=== PATIENT | male | born 1965 | race Caucasian/White ===

== ENCOUNTER 2021-10-22 10:15 | Inpatient (IN) ==
--- NOTE | 2021-10-22 11:24 | Emergency Department Note ---
History of Present Illness General Chief complaint: Leg Weakness, Bilateral Stated complaint: CANNOT WALK OR STAND, WONT EAT Time Seen by Provider: 10/22/21 11:08 Source: patient and other (Records from [facility]) Mode of arrival: ambulatory Limitations: physical limitation History of Present Illness This patient is a 56-year-old male who is a patient at [facility], comes in after being weak for the last week or so he is not walking which is atypical for him he does tend to fall and may have fallen few times recently but no definite injuries. No seizures. No fever chills he has chronic cough that is unchanged. His appetites been off and on but no vomiting. 3 weeks ago they changed a couple of his psych meds, they increased his Klonopin to regular from as needed. They also added a medication for sleep. He does take a pured diet at baseline. They state he has been losing weight but has not voiced any complaints that they can tell. Home Medications Medication Instructions Recorded Confirmed Type apixaban 5 mg tablet (Eliquis) 5 mg PO BID@,12/26/18 12/26/18 History ascorbic acid (vitamin C) 500 mg 500 mg PO BID@,12/26/18 12/26/18 History tablet (Vitamin C) benztropine 0.5 mg tablet 0.5 mg PO BID@12/26/18 12/26/18 History bromocriptine 2.5 mg tablet 2.5 mg PO DAILY@,12/26/18 12/26/18 History (Parlodel) cholecalciferol (vitamin D3) 25 1,000 unit PO BID@12/26/18 12/26/18 History mcg (1,000 unit) chewable tablet (Vitamin D3) dantrolene 25 mg capsule (Dantrium) 25 mg PO DAILY@12/26/18 12/26/18 History divalproex 250 mg tablet,delayed 250 mg PO DAILY@1600 12/26/18 12/26/18 History release divalproex 500 mg tablet,extended 1,000 mg PO BID@,12/26/18 12/26/18 History release 24 hr (Depakote ER) famotidine 20 mg tablet 20 mg PO DAILY@12/26/18 12/26/18 History folic acid 1 mg tablet 1 mg PO DAILY@08 12/26/18 12/26/18 History lactulose 10 gram/15 mL oral 45 ml PO DAILY@12/26/18 12/26/18 History solution levocarnitine 330 mg tablet 330 mg PO TID@08,,12/26/18 12/26/18 History (Carnitor) multivitamin 1 tab PO DAILY@12/26/18 12/26/18 History olanzapine 10 mg disintegrating 10 mg PO BID@,12/26/18 12/26/18 History tablet omega 0-ihp-jft-fish oil 1,000 mg 1 cap PO DAILY@12/26/18 12/26/18 History (120 mg-180 mg) capsule (Fish Oil) sennosides 8.8 mg/5 mL oral syrup 5 ml PO BID@,12/26/18 12/26/18 History (senna) topiramate 25 mg tablet (Topamax) 25 mg PO BID@,12/26/18 12/26/18 History zonisamide 100 mg capsule 200 mg PO DAILY@08 12/26/18 12/26/18 History zonisamide 100 mg capsule 300 mg PO DAILY@1600 12/26/18 12/26/18 History zonisamide 50 mg capsule 50 mg PO DAILY@12/26/18 12/26/18 History Allergies Allergy/AdvReac Type Severity Reaction Status Date / Time amoxicillin Allergy Mild unknown Verified 12/26/18 10:05 haloperidol Allergy Mild unknown Verified 12/26/18 10:05 lithium Allergy Unknown Unverified 12/26/18 10:05 PENICILLIN Allergy Mild unknown Uncoded 12/26/18 10:05 VALPORIC ACID Allergy Mild unknown Uncoded 12/26/18 10:05 Past Med/Surg History Medical History (Updated 10/22/21 @ 14:02 by Anny Gusman PA-C) Bipolar disease, chronic Intellectual disability Intermittent explosive Surgical History (Updated 10/22/21 @ 14:03 by Anny Gusman PA-C) Hx of colonoscopy Family History (Updated 10/22/21 @ 13:57 by Anny Gusman PA-C) Father Cancer Heart disease Mother Cancer Hypertension Other Family history non-contributory Social History Smoking Status: Never smoker Preferred Language: Taj[place] Feels Safe at Home: Yes Review of Systems Unobtainable due to mental health condition Physical Exam Vital Signs Vital Signs - 24 hr 10/22/21 10:17 10/22/21 11:18 10/22/21 12:05 Temperature 36.1 C L Temperature Source Temporal Artery Scan Pulse Rate 113 H 82 Pulse Rate [Finger] 77 Pulse Rate from SpO2 Sensor Pulse Rhythm Regular Pulse Strength Normal Respiratory Rate 18 18 18 Respiratory Effort / Characteristics Non-Labored Spontaneous Respiratory Depth Normal Respiratory Pattern Regular Blood Pressure 147/86 H Blood Pressure [Right Arm] 123/73 Blood Pressure Mean 106 Blood Pressure Mean [Right Arm] 89 Blood Pressure Position Sitting Blood Pressure Position [Right Arm] Lying Pulse Oximetry 98 94 96 Oxygen Delivery Method Room Air Room Air Sepsis Recent Fever Within 48 Hours No Sepsis New/Unexplained Change in Mental Status No Sepsis Action Taken by Nursing No Action Required 10/22/21 12:21 10/22/21 12:30 Temperature Temperature Source Pulse Rate 76 77 Pulse Rate [Finger] Pulse Rate from SpO2 Sensor 75 Pulse Rhythm Pulse Strength Respiratory Rate 14 18 Respiratory Effort / Characteristics Respiratory Depth Respiratory Pattern Blood Pressure Blood Pressure [Right Arm] Blood Pressure Mean Blood Pressure Mean [Right Arm] Blood Pressure Position Blood Pressure Position [Right Arm] Pulse Oximetry 96 Oxygen Delivery Method Sepsis Recent Fever Within 48 Hours Sepsis New/Unexplained Change in Mental Status Sepsis Action Taken by Nursing General: Well developed well nourished somewhat cachectic middle-age male who appears in no acute distress, breathing comfortably on room air. HEENT: Normal cephalic atraumatic. Pupils are equal round and reactive to light. Extraocular movements are intact. Oropharynx is pink with moist mucous membranes. No swelling of the mouth lips or tongue. Neck: Supple with a midline trachea. No meningeal signs or stiffness, no JVD or bruits. No Stridor. Chest: Clear to auscultation bilaterally. No wheezes or rhonchi. No increased work of breathing. Heart: Regular rate and rhythm without murmurs or gallops. Abdomen: Soft nontender, nondistended without rebound guarding or rigidity. Extremities: No cyanosis clubbing or edema. No calf tenderness or assymetry Spine/Back. Non tender to palpation. No CVA tenderness. There is some mild fullness along the sacral prominence which I believe is just the bones secondary to wasting that can be felt. There is no redness or warmth or fluctuance Skin: Good turgor without rashes. Neurologic exam: Cranial nerves two through 12 are intact. Motor and sensation are intact and symmetrical throughout. Course Administered Medications Discontinued Medications Sodium Chloride (Nss 1000ml) 1,000 mls @ 999 mls/hr IV .Q1H1M ROCIO Stop: 10/22/21 12:30 Last Infusion: 10/22/21 13:58 Dose: 0 mls/hr Documented By: Admin: 10/22/21 12:08 Dose: 999 mls/hr Documented By: QGV Medical Decision Making Differential Diagnosis Electrolyte or metabolic abnormality, toxicologic/medication side effects, trauma, intracranial hemorrhage, arrhythmia, anemia, electrolyte or metabolic abnormality, infection Medical Records Attestation: I reviewed the patient's medical records. Home Medications Current Medication List: was personally reviewed by me Laboratory Data Attestation: I reviewed the patient's lab results. Result diagrams: 10/22/21 11:49 10/22/21 11:49 Lab Results 10/22/21 10/22/21 10/22/21 Range/Units 11:49 11:49 11:49 WBC 4.66 L (4.8-10.8) K/ul RBC 4.30 L (4.63-6.08) M/uL Hgb 13.4 L (14.0-18.0) g/dl Hct 42.5 (40.1-51.0) % MCV 98.8 (80.0-100.0) fL MCH 31.2 (25.0-34.0) pg MCHC 31.5 L (32.0-36.0) g/dL RDW Std Deviation 57.4 H (36.4-46.3) fL RDW Coeff of [place]andon 15.7 H (11.5-14.5) % Plt Count 127 L (130-400) K/uL MPV 12.4 (9.4-12.4) fL Immature Gran % (Auto) 0.2 % Neut % (Auto) 64.0 % Lymph % (Auto) 26.4 % [place] % (Auto) 7.1 % Eos % (Auto) 1.9 % Baso % (Auto) 0.4 % Neut # (Auto) 2.98 (1.4-6.5) K/uL Lymph # (Auto) 1.23 (1.2-3.4) K/uL [place] # (Auto) 0.33 (0.24-0.82) K/uL Eos # (Auto) 0.09 (0-0.50) K/uL Baso # (Auto) 0.02 (0-0.2) K/uL Immature Gran # (Auto) 0.01 (0.00-0.02) K/uL PT 11.7 (9.0-12.0) Seconds INR 1.1 (0.9-1.1) Sodium 140 (136-145) mmol/L Potassium 4.4 (3.5-5.1) mmol/L Chloride 102 (98-107) mmol/L Carbon Dioxide 34 H (21-32) mmol/L Anion Gap 4 (3-11) BUN 21 (6-23) mg/dl Creatinine 0.64 (0.6-1.4) mg/dl Est Cr Clr Drug Dosing Not Reportable Est GFR ( Amer) 126.0 ml/min Est GFR (Non-Af Amer) 108.7 ml/min BUN/Creatinine Ratio 32.8 H (10-20) Glucose 73 (70-99(Fasting)) mg/dl Lactate (0.4-2.0) mmol/L Calcium 10.3 H (8.5-10.1) mg/dl Magnesium 2.0 (1.7-2.4) mg/dl Total Bilirubin 0.3 (0.2-1.0) mg/dl AST 23 (13-39) U/L ALT 14 (7-52) U/L Alkaline Phosphatase 64 (34-104) U/L Total Creatine Kinase 162 (30-223) U/L Troponin I High Sens 4.0 (0-20) pg/ml Total Protein 8.3 (6.0-8.3) gm/dl Albumin 4.0 (3.4-5.0) gm/dl Globulin 4.3 H (2.5-4.0) gm/dl Albumin/Globulin Ratio 0.9 (0.9-2) TSH (0.300-4.500) uIu/ml Valproic Acid (50-100) mcg/ml SARS-CoV-2, RNA, NAAT (NEGATIVE) 10/22/21 10/22/21 10/22/21 Range/Units 11:49 11:49 11:49 WBC (4.8-10.8) K/ul RBC (4.63-6.08) M/uL Hgb (14.0-18.0) g/dl Hct (40.1-51.0) % MCV (80.0-100.0) fL MCH (25.0-34.0) pg MCHC (32.0-36.0) g/dL RDW Std Deviation (36.4-46.3) fL RDW Coeff of Landon (11.5-14.5) % Plt Count (130-400) K/uL MPV (9.4-12.4) fL Immature Gran % (Auto) % Neut % (Auto) % Lymph % (Auto) % [place] % (Auto) % Eos % (Auto) % Baso % (Auto) % Neut # (Auto) (1.4-6.5) K/uL Lymph # (Auto) (1.2-3.4) K/uL [place] # (Auto) (0.24-0.82) K/uL Eos # (Auto) (0-0.50) K/uL Baso # (Auto) (0-0.2) K/uL Immature Gran # (Auto) (0.00-0.02) K/uL PT (9.0-12.0) Seconds INR (0.9-1.1) Sodium (136-145) mmol/L Potassium (3.5-5.1) mmol/L Chloride (98-107) mmol/L Carbon Dioxide (21-32) mmol/L Anion Gap (3-11) BUN (6-23) mg/dl Creatinine (0.6-1.4) mg/dl Est Cr Clr Drug Dosing Est GFR ( Amer) ml/min Est GFR (Non-Af Amer) ml/min BUN/Creatinine Ratio (10-20) Glucose (70-99(Fasting)) mg/dl Lactate 1.2 (0.4-2.0) mmol/L Calcium (8.5-10.1) mg/dl Magnesium (1.7-2.4) mg/dl Total Bilirubin (0.2-1.0) mg/dl AST (13-39) U/L ALT (7-52) U/L Alkaline Phosphatase (34-104) U/L Total Creatine Kinase (30-223) U/L Troponin I High Sens (0-20) pg/ml Total Protein (6.0-8.3) gm/dl Albumin (3.4-5.0) gm/dl Globulin (2.5-4.0) gm/dl Albumin/Globulin Ratio (0.9-2) TSH 1.315 (0.300-4.500) uIu/ml Valproic Acid 121 H (50-100) mcg/ml SARS-CoV-2, RNA, NAAT (NEGATIVE) 10/22/21 Range/Units 12:28 WBC (4.8-10.8) K/ul RBC (4.63-6.08) M/uL Hgb (14.0-18.0) g/dl Hct (40.1-51.0) % MCV (80.0-100.0) fL MCH (25.0-34.0) pg MCHC (32.0-36.0) g/dL RDW Std Deviation (36.4-46.3) fL RDW Coeff of Landon (11.5-14.5) % Plt Count (130-400) K/uL MPV (9.4-12.4) fL Immature Gran % (Auto) % Neut % (Auto) % Lymph % (Auto) % [place] % (Auto) % Eos % (Auto) % Baso % (Auto) % Neut # (Auto) (1.4-6.5) K/uL Lymph # (Auto) (1.2-3.4) K/uL [place] # (Auto) (0.24-0.82) K/uL Eos # (Auto) (0-0.50) K/uL Baso # (Auto) (0-0.2) K/uL Immature Gran # (Auto) (0.00-0.02) K/uL PT (9.0-12.0) Seconds INR (0.9-1.1) Sodium (136-145) mmol/L Potassium (3.5-5.1) mmol/L Chloride (98-107) mmol/L Carbon Dioxide (21-32) mmol/L Anion Gap (3-11) BUN (6-23) mg/dl Creatinine (0.6-1.4) mg/dl Est Cr Clr Drug Dosing Est GFR ( Amer) ml/min Est GFR (Non-Af Amer) ml/min BUN/Creatinine Ratio (10-20) Glucose (70-99(Fasting)) mg/dl Lactate (0.4-2.0) mmol/L Calcium (8.5-10.1) mg/dl Magnesium (1.7-2.4) mg/dl Total Bilirubin (0.2-1.0) mg/dl AST (13-39) U/L ALT (7-52) U/L Alkaline Phosphatase (34-104) U/L Total Creatine Kinase (30-223) U/L Troponin I High Sens (0-20) pg/ml Total Protein (6.0-8.3) gm/dl Albumin (3.4-5.0) gm/dl Globulin (2.5-4.0) gm/dl Albumin/Globulin Ratio (0.9-2) TSH (0.300-4.500) uIu/ml Valproic Acid (50-100) mcg/ml SARS-CoV-2, RNA, NAAT NEGATIVE (NEGATIVE) Imaging Data Attestation: I personally reviewed and interpreted this imaging study as follows: My Impression: Chest x-raynonspecific haziness in the bases CT head-no acute hemorrhage or mass-effect Radiologist's Impression: Chest X-Ray 10/22/21 11:18 XR chest 1V portable HISTORY: 56 years-old Male weakness acute weakness COMPARISON: None TECHNIQUE: Portable AP view of the chest FINDINGS: Cardiac silhouette is normal in size. Mild nonspecific interstitial coarsening of the left greater than right lung bases. Mild left hemidiaphragmatic elevation. No pneumothorax, large pleural effusion or lobar airspace cons olidation. Moderate fecal retention of the splenic flexure. Chronic appearing fracture deformities of the right proximal humerus and distal right clavicle. IMPRESSION: Mild left hemidiaphragmatic elevation with mild nonspecific interstitial coarsening of the lung bases. Findings may represent atelectasis versus a nonspecific pneumonitis. ACT 112: Negative or not required by law. The above report was generated using voice recognition software. It may contain grammatical, syntax or spelling errors. Electronically signed by: Ezekiel Ramirez M.D. 10/22/2021 11:[address] 10/22/21 11:18 CT head/brain wo con CLINICAL HISTORY: 56 years-old Male with weakness. Acute weakness TECHNIQUE: Multiple axial CT images of the head were obtained without contrast. A dose lowering technique was utilized adhering to the principles of ALARA. COMPARISON: None. FINDINGS: No acute intracranial hemorrhage, midline shift, intracranial mass, hydrocephalus, territorial ischemia or abnormal extra-axial collection.5 study is mildly motion degraded. Mild involutional changes. The calvarium is intact. Trace mastoid effusions. Paranasal sinuses are clear. Unremarkable soft tissues and orbits. IMPRESSION: No acute intracranial abnormality. ACT 112: Negative or not required by law. The above report was generated using voice recognition software. It may contain grammatical, syntax or spelling errors. Electronically signed by: Ezekiel Ramirez M.D. 10/22/2021 1:45 PM ECG Data Attestation: I personally reviewed and interpreted this ECG as follows: Indication: + weakness Rate (beats per minute): 79 Rhythm: + normal sinus ECG Intervals/blocks: + Normal QRS, + Normal QT and + Normal [place] ECG Athena: + Normal ECG ST segments: + Normal ST segments ECG Findings: no PACs or no PVCs Comparison ECG Date: no prior available MDM Narrative This patient comes in with increasing weakness and difficulty walking over the last week or so is difficult to evaluate due to his underlying intellectual deficit and mental health diagnoses. IV access was established and he was hydrated with an IV normal saline bolus. Multiple blood testing was obtained an d he was reassessed frequently. He has no fever or white count to suggest infection. He has no significant electrolyte or metabolic abnormalities. His Depakote level was significantly elevated at 121 I think this is likely causing his symptoms it seems like he is ataxic. He was hydrated with normal saline. He is on a blood thinner. CAT scan of his head was unremarkable. I do think he needs to be admitted as he is a fall risk and they can hold his Depakote and hydrate him. I have consulted the [facility] hospitalist to see him. Continuous cardiac monitoring: Versus placed in EMR for continuous cardiac monitoring. Soto interpretation the patient noted to be in normal sinus rhythm rate of 70 Impression & Plan Valproic acid toxicity, Weakness, Ataxia, Lab test negative for COVID-19 virus Discharge Plan Visit Data Chief Complaint: Leg Weakness, Bilateral Stated Complaint: CANNOT WALK OR STAND, WONT EAT ED Provider: Pritesh Iraheta Discharge Problem: Valproic acid toxicity, Weakness, Ataxia, Lab test negative for COVID-19 virus Forms Stand Alone Forms: My [facility] Prescriptions Prescriptions: No Action multivitamin Tablet 1 tab PO DAILY@08 benztropine 0.5 mg Tablet 0.5 mg PO BID@08,20 dantrolene [Dantrium] 25 mg Capsule 25 mg PO DAILY@20 divalproex 250 mg Tablet,Delayed Release (Dr/Ec) 250 mg PO DAILY@1600 topiramate [Topamax] 25 mg Tablet 25 mg PO BID@08,16 sennosides [senna] 8.8 mg/5 mL Syrup 5 ml PO BID@08,20 levocarnitine [Carnitor] 330 mg Tablet 330 mg PO TID@08,,20 zonisamide 100 mg Capsule 200 mg PO DAILY@08 zonisamide 100 mg Capsule 300 mg PO DAILY@1600 famotidine 20 mg Tablet 20 mg PO DAILY@08 ascorbic acid (vitamin C) [Vitamin C] 500 mg Tablet 500 mg PO BID@08,20 divalproex [Depakote ER] 500 mg Tablet Extended Release 24 Hr 1,000 mg PO BID@08,20 olanzapine 10 mg Tablet,Disintegrating 10 mg PO BID@08,20 folic acid 1 mg Tablet 1 mg PO DAILY@08 bromocriptine [Parlodel] 2.5 mg Tablet 2.5 mg PO DAILY@, zonisamide 50 mg Capsule 50 mg PO DAILY@08 lactulose 10 gram/15 mL Solution 45 ml PO DAILY@08 cholecalciferol (vitamin D3) [Vitamin D3] 1,000 unit Tablet,Chewable 1,000 unit PO BID@08,20 omega 8-prb-iga-fish oil [Fish Oil] 1,000 mg (120 mg-180 mg) Capsule 1 cap PO DAILY@17 Eliquis 5 mg Tablet 5 mg PO BID@08,20 Referrals Referrals: Barbara Fuentes PA-C [Primary Care Provider] - : Valproic acid toxicity Qualifiers: Encounter type: initial encounter Injury intent: accidental or unintentional Qualified Code(s): T42.6X1A - Poisoning by other antiepileptic and sedative- hypnotic drugs, accidental (unintentional), initial encounter
[2021-10-22] MEDS ORDERED: SODIUM CHLORIDE 0.9% 1000ML 1,000 ML IV SCH ×2 (11:30→14:45)
--- NOTE | 2021-10-22 11:36 | XRay Report ---
XR chest 1V portable HISTORY: 56 years-old Male weakness acute weakness COMPARISON: None TECHNIQUE: Portable AP view of the chest FINDINGS: Cardiac silhouette is normal in size. Mild nonspecific interstitial coarsening of the left greater th an right lung bases. Mild left hemidiaphragmatic elevation. No pneumothorax, large pleural effusion o r lobar airspace consolidation. Moderate fecal retention of the splenic flexure. Chronic appearing fr acture deformities of the right proximal humerus and distal right clavicle. IMPRESSION: Mild left hemidiaphragmatic elevation with mild nonspecific interstitial coarsening of th e lung bases. Findings may represent atelectasis versus a nonspecific pneumonitis. ACT 112: Negative or not required by law. The above report was generated using voice recognition software. It may contain grammatical, syntax o r spelling errors. Electronically signed by: Ezekiel Ramirez M.D. 10/22/2021 11:34 AM
[2021-10-22 12:24] LABS: Basophils # (auto) 0.02 K/uL (0-0.2); Basophils % (auto) 0.4 %; Eosinophils # (auto) 0.09 K/uL (0-0.50); Eosinophils % (auto) 1.9 %; Hematocrit (blood only) 42.5 % (40.1-51.0); Hemoglobin 13.4 g/dl (14.0-18.0); INR 1.1 (0.9-1.1); Immature Granulocytes # (auto) 0.01 K/uL (0.00-0.02); Immature Granulocytes % (auto) 0.2 %; Lymphocytes # (auto) 1.23 K/uL (1.2-3.4); Lymphocytes % (auto) 26.4 %; Mean Platelet Volume 12.4 fL (9.4-12.4); Monocytes # (auto) 0.33 K/uL (0.24-0.82); Monocytes % (auto) 7.1 %; Neutrophils # (auto) 2.98 K/uL (1.4-6.5); Platelet Count 127 K/uL (130-400); Prothrombin Time 11.7 Seconds (9.0-12.0); White Blood Count 4.66 K/ul (4.8-10.8)
[2021-10-22 12:40] LABS: Alanine Aminotransferase 14 U/L (7-52); Albumin Globulin Ratio 0.9 (0.9-2); Alkaline Phosphatase 64 U/L (34-104); Anion Gap 4 (3-11); Aspartate Aminotransferase 23 U/L (13-39); BUN Creatinine Ratio 32.8 (10-20); Bilirubin,Total 0.3 mg/dl (0.2-1.0); Blood Urea Nitrogen 21 mg/dl (6-23); Calcium 10.3 mg/dl (8.5-10.1); Carbon Dioxide 34 mmol/L (21-32); Chloride 102 mmol/L (98-107); Creatine Kinase 162 U/L (30-223); Est GFR (Non-African American) 108.7 ml/min; Globulin 4.3 gm/dl (2.5-4.0); Glucose 73 mg/dl (70-99(Fasting)); Potassium 4.4 mmol/L (3.5-5.1); Sodium 140 mmol/L (136-145); Total Protein 8.3 gm/dl (6.0-8.3)
[2021-10-22 12:50] LABS: Mean Corpuscular Hemoglobin 31.2 pg (25.0-34.0); Mean Corpuscular Hgb Conc 31.5 g/dL (32.0-36.0); Mean Corpuscular Volume 98.8 fL (80.0-100.0); RDW Coefficient of Variation 15.7 % (11.5-14.5); RDW Standard Deviation 57.4 fL (36.4-46.3)
--- NOTE | 2021-10-22 13:46 | CT Scan Report ---
CT head/brain wo con CLINICAL HISTORY: 56 years-old Male with weakness. Acute weakness TECHNIQUE: Multiple axial CT images of the head were obtained without contrast. A dose lowering tech nique was utilized adhering to the principles of ALARA. COMPARISON: None. FINDINGS: No acute intracranial hemorrhage, midline shift, intracranial mass, hydrocephalus, territorial ischem ia or abnormal extra-axial collection.5 study is mildly motion degraded. Mild involutional changes. The calvarium is intact. Trace mastoid effusions. Paranasal sinuses are clear. Unremarkable soft tis sues and orbits. IMPRESSION: No acute intracranial abnormality. ACT 112: Negative or not required by law. The above report was generated using voice recognition software. It may contain grammatical, syntax o r spelling errors. Electronically signed by: Ezekiel Ramirez M.D. 10/22/2021 1:45 PM
--- NOTE | 2021-10-22 14:04 | History & Physical Report ---
Date of Service October 22, 2021 Assessment & Plan (1) Weakness: (2) Valproic acid toxicity: (3) Seizure disorder: (4) Bipolar disease, chronic: Plan: -Admit to med surg with tele -Will hold valproic acid for now as appears that some of his symptoms may be related to toxicity with level going from the mid 90s to 121. Possible due to malabsorption with recent weight loss and medication dosing needing to be reduced, no recent medication dosing changes. -Medication changes include clonazepam 0.5 mg every morning to scheduled and temazepam increased to 15 to 30 mg at bedtime. -Neuro consulted for hx of weakness with elevated depakote level, and seizure disorder hx, per HPI, no witnessed seizure in the past 13 years -PT/OT -Behavioral disturbances noted in HPI, he currently has not been walking, calm, lethargic, monitor for need for 1:1 at bedside -Epic reviewed and last tox screen was positive for benzodiazepines appropriately, PDMP reviewed as well. Order urine drug screen for completeness. -TSH 1.315 - Check B12 and folic acid -Noted that during his last visit to PCP in mid September his Seroquel and Remeron were increased (5) Weight loss: Plan: -Concern for weight loss of greater than 20 pounds unintentionally in the past few months - on outpt review mother was concerned about 17 lbs down since July despite 2 boost and 1 benecalorie daily, on average is consuming 2500 to 3000 kenny daily. Allow pureed and pudding thick liquids. Aspiration precautions. -Check CT the chest, abdomen pelvis to eval for underlying malignancy, consider a Ca1 29 level -NSS x 1 bag s/p contrast with CTs - Recent colonoscopy in August 2021 but had poor prep and has been rescheduled, it was done due to high risk colon cancer surveillance, and personal hx of tubular adenoma found on colonoscopy in May 2015 -PSA was 0.44 on 09/24/21 -Dietitian consulted for nutritional status, continue boost supplementation 3 times daily as he uses protein supplements 3 times daily as outpatient -PT/OT consults -Albumin level is adequate at 4.0, consider sarcopenia if albumin level drops does not currently meet those qualifications DVT PPx: - teds, scds, Eliquis twice daily CODE: Full code Dispo: From [facility], likely to remain in the hospital x 2 days for further workup History of Present Illness Chief Complaint: Weakness Primary Care Provider: Barbara Fuentes This is a 56-year-old male with PMHx of seizure disorder on Depakote, intermitt ent explosive disorder, severe bipolar 1, intellectual disability and developmental disorder, history of DVT on Eliquis, problems with swallowing/mastication, presents to the ER from [facility] after worsening weakness in the past week. Reportedly the patient had COVID on September 11 without symptoms, but was tested in the [place] [facility] for another visit purpose, and found incidentally. History is obtained by nursing caregiver who are present at bedside as the patient is essentially nonverbal, repeating the same word "no" throughout the exam. He does not follow commands at baseline. In the past week he not been quite himself. He has not been wanting to walk within the pas 4 days. He also has been eating less and is not allowing the aids to help feed him, and is puckering his lips when food is presented. He tolerates oral intake with pureed foods and pudding thick liquids, but he does not feed himself, instead an aid at the [facility] helps him with all meals. The report the patient normally eats well, and on a daily basis consumes carnation instant breakfast at least twice per day. They report significant weight loss, over 20 lbs within the past few months despite 3 protein supplements daily and eating things such as a pureed Big Mac where he will consume all of it at one meal without hesitancy. Pt was agreeable to taking all his medications this morning. There have been minimal changes to his outpatient medications including scheduling clonazepam 0.5 mg in the morning from a PRN med, and increased temazepam dose from 15 to 30 mg at bedtime. He has been on valproic acid 1000 mg twice daily and an additional 250 mg at 1600 for a long time. Patient has lived at fpc with [place] for 13 years and the caregivers have never witnessed seizure-like activity. They do report significant behavioral disturbances including aggressiveness, pacing and walking, extreme irritability however he has not exhibited any of these behaviors in the past week and has been significantly more lethargic. His mother has expressed concerns to the staff about him progressively becoming worse and therefore they brought him to the ER today. Valproic acid level is elevated today at 121, compared to [facility] results, his other levels have been in the mid 90s. With the most recent being on 09/11/2021 = 96. Platelet count is decreased at 127, but this has improved from outpatient labs where plt = 87 on 09/11/21. In regards to family history, caregiver nor aid are able to tell me what kind of cancer the patient's parents had. Allergies Allergy/AdvReac Type Severity Reaction Status Date / Time amoxicillin Allergy Mild unknown Verified 12/26/18 10:05 haloperidol Allergy Mild unknown Verified 12/26/18 10:05 lithium Allergy Unknown Unverified 12/26/18 10:05 PENICILLIN Allergy Mild unknown Uncoded 12/26/18 10:05 VALPORIC ACID Allergy Mild unknown Uncoded 12/26/18 10:05 Home Medications Medication Instructions Recorded Confirmed Type ascorbic acid (vitamin C) 500 mg 500 mg PO BID@,12/26/18 10/22/21 History tablet (Vitamin C) bromocriptine 2.5 mg tablet 2.5 mg PO DAILY@08,12/26/18 10/22/21 History (Parlodel) cholecalciferol (vitamin D3) 25 1,000 unit PO BID@,12/26/18 10/22/21 History mcg (1,000 unit) chewable tablet (Vitamin D3) divalproex 250 mg tablet,delayed 250 mg PO DAILY@1600 12/26/18 10/22/21 History release divalproex 500 mg tablet,extended 1,000 mg PO BID@08,12/26/18 10/22/21 History release 24 hr (Depakote ER) folic acid 1 mg tablet 1 mg PO DAILY@08 12/26/18 10/22/21 History multivitamin 1 tab PO DAILY@08 12/26/18 10/22/21 History apixaban 2.5 mg tablet (Eliquis) 2.5 mg PO BID 10/22/21 10/22/21 History clonazepam 0.5 mg tablet 0.5 mg PO QAM 10/22/21 10/22/21 History omeprazole 10 mg capsule,delayed 10 mg PO DAILY 10/22/21 10/22/21 History release quetiapine 300 mg tablet (Seroquel) 150 mg PO HS 10/22/21 10/22/21 History temazepam 30 mg capsule (Restoril) 30 mg PO HS 10/22/21 10/22/21 History Past Med/Surg History Medical History (Updated 10/22/21 @ 15:14 by Anny Gusman PA-C) Bipolar disease, chronic Intellectual disability Intermittent explosive Surgical History (Updated 10/22/21 @ 14:03 by Anny Gusman PA-C) Hx of colonoscopy Family History (Updated 10/22/21 @ 13:57 by Anny Gusman PA-C) Father Cancer Heart disease Mother Cancer Hypertension Other Family history non-contributory Social History Smoking Status: Never smoker Preferred Language: Luxembourgish Feels Safe at Home: Yes Review of Systems Review of Systems: Unobtainable due to mental health condition and Unobtainable due to cognitive status Physical Exam Physical Exam: General: awake, alert, no apparent distress, nonverbal other than saying "no" a few times Head: Normocephalic, atraumatic ENT: PERRL, EOMI, no pharyngeal exudate, mucous membranes moist, + parkinsonism trait with rolling tongue in mouth throughout exam, + poor dentition Chest: +wet nonproductive cough, + crackles on R side, on room air with sats at 97%, no wheeze or rales Cardiac: Regular rate and rhythm, no murmur, no JVD, normal peripheral pulses, good capillary refill Abdominal: NABS x 4 quadrants, soft, nondistended, nontender to palpation, no rebound or guarding Extremities: Normal inspection, no peripheral edema or erythema, calfs nontender to palpation Psych: Lethargic, flat affect Neuro: Alert and awake, unable to assess orientation due to nonverbal status, d oes not follow commands, strength normal motor skills unable to be assessed, speech is clear, able to assess peripheral sensory deficits, patellar reflexes intact Results & Data Results & Data ([facility]) Vital Signs (Past 12 Hours) Vital Signs Temp Pulse Pulse Resp BP BP Pulse Ox 10/22/21 12:30 77 18 10/22/21 12:21 76 14 96 10/22/21 12:05 77 18 123/73 96 10/22/21 11:18 82 18 94 10/22/21 10:17 36.1 C L 113 H 18 147/86 H 98 O2 Del Method 10/22/21 12:30 10/22/21 12:21 10/22/21 12:05 Room Air 10/22/21 11:18 Room Air 10/22/21 10:17 Laboratory Results 10/22/21 12:36 Aerobic Blood Culture - Pending Blood Anaerobic Blood Culture - Pending 10/22/21 11:49 Aerobic Blood Culture - Pending Blood Anaerobic Blood Culture - Pending 10/22/21 10/22/21 10/22/21 12:28 11:49 11:49 WBC RBC Hgb Hct MCV MCH MCHC RDW Std Deviation RDW Coeff of Landon Plt Count MPV Immature Gran % (Auto) Neut % (Auto) Lymph % (Auto) Dade % (Auto) Eos % (Auto) Baso % (Auto) Neut # (Auto) Lymph # (Auto) Dade # (Auto) Eos # (Auto) Baso # (Auto) Immature Gran # (Auto) PT INR Sodium Potassium Chloride Carbon Dioxide Anion Gap BUN Creatinine Est Cr Clr Drug Dosing Est GFR ( Amer) Est GFR (Non-Af Amer) BUN/Creatinine Ratio Glucose Lactate Calcium Magnesium Total Bilirubin AST ALT Alkaline Phosphatase Total Creatine Kinase Troponin I High Sens Total Protein Albumin Globulin Albumin/Globulin Ratio TSH 1.315 Valproic Acid 121 H SARS-CoV-2, RNA, NAAT NEGATIVE 10/22/21 10/22/21 10/22/21 11:49 11:49 11:49 WBC RBC Hgb Hct MCV MCH MCHC RDW Std Deviation RDW Coeff of Landon Plt Count MPV Immature Gran % (Auto) Neut % (Auto) Lymph % (Auto) Dade % (Auto) Eos % (Auto) Baso % (Auto) Neut # (Auto) Lymph # (Auto) Dade # (Auto) Eos # (Auto) Baso # (Auto) Immature Gran # (Auto) PT 11.7 INR 1.1 Sodium 140 Potassium 4.4 Chloride 102 Carbon Dioxide 34 H Anion Gap 4 BUN 21 Creatinine 0.64 Est Cr Clr Drug Dosing Not Reportable Est GFR ( Amer) 126.0 Est GFR (Non-Af Amer) 108.7 BUN/Creatinine Ratio 32.8 H Glucose 73 Lactate 1.2 Calcium 10.3 H Magnesium 2.0 Total Bilirubin 0.3 AST 23 ALT 14 Alkaline Phosphatase 64 Total Creatine Kinase 162 Troponin I High Sens 4.0 Total Protein 8.3 Albumin 4.0 Globulin 4.3 H Albumin/Globulin Ratio 0.9 TSH Valproic Acid SARS-CoV-2, RNA, NAAT 10/22/21 11:49 WBC 4.66 L RBC 4.30 L Hgb 13.4 L Hct 42.5 MCV 98.8 MCH 31.2 MCHC 31.5 L RDW Std Deviation 57.4 H RDW Coeff of Landon 15.7 H Plt Count 127 L MPV 12.4 Immature Gran % (Auto) 0.2 Neut % (Auto) 64.0 Lymph % (Auto) 26.4 Dade % (Auto) 7.1 Eos % (Auto) 1.9 Baso % (Auto) 0.4 Neut # (Auto) 2.98 Lymph # (Auto) 1.23 Dade # (Auto) 0.33 Eos # (Auto) 0.09 Baso # (Auto) 0.02 Immature Gran # (Auto) 0.01 PT INR Sodium Potassium Chloride Carbon Dioxide Anion Gap BUN Creatinine Est Cr Clr Drug Dosing Est GFR ( Amer) Est GFR (Non-Af Amer) BUN/Creatinine Ratio Glucose Lactate Calcium Magnesium Total Bilirubin AST ALT Alkaline Phosphatase Total Creatine Kinase Troponin I High Sens Total Protein Albumin Globulin Albumin/Globulin Ratio TSH Valproic Acid SARS-CoV-2, RNA, NAAT Diagnostic Findings Chest X-Ray 10/22/21 11:18 XR chest 1V portable HISTORY: 56 years-old Male weakness acute weakness COMPARISON: None TECHNIQUE: Portable AP view of the chest FINDINGS: Cardiac silhouette is normal in size. Mild nonspecific interstitial coarsening of the left greater than right lung bases. Mild left hemidiaphragmatic elevation. No pneumothorax, large pleural effusion or lobar airspace consolidation. Moderate fecal retention of the splenic flexure. Chronic appearing fracture deformities of the right proximal humerus and distal right clavicle. IMPRESSION: Mild left hemidiaphragmatic elevation with mild nonspecific interstitial coarsening of the lung bases. Findings may represent atelectasis versus a nonspecific pneumonitis. ACT 112: Negative or not required by law. The above report was generated using voice recognition software. It may contain grammatical, syntax or spelling errors. Electronically signed by: Ezekiel Ramirez M.D. 10/22/2021 11:[address] 10/22/21 11:18 CT head/brain wo con CLINICAL HISTORY: 56 years-old Male with weakness. Acute weakness TECHNIQUE: Multiple axial CT images of the head were obtained without contrast. A dose lowering technique was utilized adhering to the principles of ALARA. COMPARISON: None. FINDINGS: No acute intracranial hemorrhage, midline shift, intracranial mass, hydrocephalus, territorial ischemia or abnormal extra-axial collection.5 study is mildly motion degraded. Mild involutional changes. The calvarium is intact. Trace mastoid effusions. Paranasal sinuses are clear. Unremarkable soft tissues and orbits. IMPRESSION: No acute intracranial abnormality. ACT 112: Negative or not required by law. The above report was generated using voice recognition software. It may contain grammatical, syntax or spelling errors. Electronically signed by: Ezekiel Ramirez M.D. 10/22/2021 1:45 PM Code Status & VTE Plan Code Status Full code- discussed with aid and caregiver at bedside. Supervising Physician Co-Signing Physician Notes 56-year-old male nonverbal at baseline/profound intellectual disability with PMH of intermittent explosive disorder, seizure disorder [last seizure at least 13 years ago per skills staff], problem with swallowing/mastication [on pured diet], neutropenia, recurrent falls, severe bipolar 1 disorder, recurrent DVT presented to our ED 10/22 for evaluation of progressive generalized weakness. History taken from chart review and skills facility staff at bedside, patient nonverbal and is not able to cooperate with examination. Per skilled facility staff at bedside, patient has been getting weaker since about 2 months, has been losing weight despite very good/big appetite, then unable to give appropriate figures on weight loss but they find his clothes has become loose and his bones has been more prominent lately, they gave an approximate of 20 pounds weight loss in the last 1 year but again were unsure of the timeframe to be exact. Patient generally moves around and is active at baseline but has become more weak/unable to put weight on legs lately. Patient does have history of recurrent falls in the past. Admitting labs reviewed, WBC minimally depressed, electrolytes WNL, valproic acid level elevated at 121. Admitting CXR and CT head with no acute findings TSH, B12, iron levels, FOBT, CT chest and CT abdomen pelvis with IV contrast, NSS at 60 mils an hour for 1 bag, neurology for valproic acid dose adjustment/ BLE weakness, hold valproic acid for now and recommend following up with neurology recommendation, concern for developing GBS/watch for respiratory status, diet, dietitian consult for possible failure to thrive. PT/OT consult for weakness. Knee reflexes were 2+ at bedside exam, but patient was not able to cooperate with examination and not sure whether patient cannot move his lower extremity or he is not moving at the moment. Upon Exam: GENERAL: Alert, non varbal, NAD, on RA HEENT: No pallor, no icterus. Pupils equal, round and reactive to light. Oral mucosa moist. NECK: No JVD, no neck masses. HEART: S1 and S2 heard. Regular rate and rhythm. No murmur, no gallop. RESPIRATORY SYSTEM: Normal AP diameter. No accessory muscle use. No wheezing, + crackles R>L. ABDOMEN: Soft, bowel sounds present, nontender, no distention. CENTRAL NERVOUS SYSTEM: No facial droop. Unable to cooperated, knee reflex 2+. EXTREMITIES: No edema, no erythema seen. I have seen and examined the patient and have discussed the case with the provider above. I agree with the assessment and plan as stated. (1) Valproic acid toxicity Encounter type: initial encounter Injury intent: accidental or unintentional Qualified Code(s): T42.6X1A - Poisoning by other antiepileptic and sedative- hypnotic drugs, accidental (unintentional), initial encounter
[2021-10-22 16:48] LABS: Folate (Folic Acid) > 22.30 ng/ml (>5.38); Vitamin B12 891 pg/ml (180-914)
[2021-10-22] MEDS ORDERED: ONDANSETRON INJ 2 MG/ML 2 ML VIAL IV PRN (18:40)
[2021-10-22] MEDS: BROMOCRIPTINE MESYLATE 2.5 MG TAB PO SCH (18:50)
[2021-10-22] MEDS ORDERED: OPTIRAY 300 100mL IV ONE (20:55)
[2021-10-22] MEDS: CHOLECALCIFEROL 1,000 UNITS 25 MCG TAB PO SCH (21:20)
[2021-10-22] MEDS: ASCORBIC ACID 500 MG TAB PO SCH (21:20)
[2021-10-22] MEDS: APIXABAN 2.5 MG TAB PO SCH (21:22)
[2021-10-22] MEDS: QUEtiapine FUMARATE 25 MG TABLET PO SCH (21:23)
[2021-10-22] MEDS: TEMAZEPAM 15 MG CAPSULE PO SCH (21:25)
--- NOTE | 2021-10-22 22:52 | Communication Note ---
Date of Service: October 22, 2021 CT initial read forwarded by admitting provider. CT chest initial read: Scattered streakyinfiltrates in both lower lobes consistent with pneumonia versus atelectasis. No pneumothorax or pleural effusion is seen. The aorta is nondilated. There is no aneurysmor dissection. The pulmonaryarterial tree iswell opacified with contrast. No large central pulmonaryemboli are identified. There is motion artifact blurring the mid to lower pulmonaryarterial tree bilaterally. The heart is not enlarged. No pericardial effusion is seen. No mediastinal or axillarylymphadenopathyor mass is identified. Mild degenerative changes in the spine. No fracture or bone lesion. Limited images of the upper abdomen appear unremarkable. CT abdomen pelvis initial read: Streakybibasilar pneumonia versus atelectasis. There is a smooth oval ill- defined 2 x 3 cmfluid collection in the left buttock musculature superficial to the ischial tuberositysuspicious for developing decubitus ulcer versus hematoma. There is a relativelylarge amount of stool throughout the colon which is upper limits of normal measuring 6.4 cmin diameter suggesting constipation. No pneumoperitoneum, free fluid, or acute inflammatorychanges are seen involving the bowel. The appendix is normal. The liver, gallbladder, pancreas, spleen, and adrenal glands are unremarkable. Nonobstructive 2 mmcalyceal calculi in the kidneys bilaterally. No hydronephrosis or ureterolithiasis is seen. Mild degenerative changes in the spine. No fracture or bone lesion Ap Aspiration pneumonitis Possible left buttock hematoma (hematoma smaller size from outpatient imaging as per admitting provider) IV Clindamycin
[2021-10-22] MEDS ORDERED: CLINDAMYCIN PHOS 300 MG/2 ML VIAL IV SCH (23:00)
[2021-10-23] MEDS: CLINDAMYCIN/D5W 600 MG/50 ML PREMIX BAG IV SCH ×2 (00:23→06:14)
[2021-10-23 04:38] LABS: Appearance Urine Clear (Clear); Bilirubin Urine Negative (Negative); Blood Urine Negative (Negative); Color Urine Yellow; Glucose Urine UA Negative (Negative); Ketones Urine Negative (Negative); Leukocyte Esterase Urine Negative (Negative); Nitrite Urine Negative (Negative); Protein Urine Negative (Negative); Specific Gravity Urine 1.045 (1.000-1.030); Urobilinogen Urine Negative (Negative)
[2021-10-23 05:29] LABS: Amphetamines+Metham, Urine Neg (Neg); Barbiturates, Urine Neg (Neg); Benzodiazepine, Urine Pos (Neg); Cocaine, Urine Neg (Neg); MDMA (Ecstacy), Urine Neg (Neg); Methadone, Urine Neg (Neg); Opiate, Urine Neg (Neg); Phencyclidine, Urine Neg (Neg)
--- NOTE | 2021-10-23 07:23 | CT Scan Report ---
CHEST CT WITH CONTRAST HISTORY: Acute weight loss with shortness of breath weight loss, eval for malignancy, r/o pna TECHNIQUE: Multiaxial CT images of the chest were performed following the IV administration of 92 cc of Optiray. A dose lowering technique was utilized adhering to the principles of ALARA. COMPARISON: CT abdomen and pelvis of same day FINDINGS: Limited exam secondary to positioning and respiratory motion artifact. Unremarkable thyroid . The heart is normal in size. No pericardial effusion or thoracic lymphadenopathy. There is no thora cic aortic aneurysm or dissection identified. Unremarkable pulmonary artery. Bilateral bronchial wall thickening with bibasilar mucous plugging. No pneumothorax or overt pulmonar y edema. Bibasilar patchy consolidative opacities are most pronounced within the dependent lower lobe s. Subtle patchy groundglass opacities within the right upper lobe. Moderate fecal retention. Unremarkable soft tissues. Degenerative changes of the shoulders and spine. Possible avascular necrosis of the right humeral head. Healed chronic fracture deformity of the prox imal right humerus. IMPRESSION: 1. Limited exam as above. 2. Bibasilar predominant consolidative opacities are suggestive of pneumonia versus aspiration pneumo nitis. 3. Bronchial wall thickening suggestive of bronchitis or reactive airway disease with mild bibasilar mucous plugging. ACT 112: Negative or not required by law. Electronically signed by: Ezekiel Ramirez M.D. 10/23/2021 7:22 AM
--- NOTE | 2021-10-23 07:55 | CT Scan Report ---
CT OF THE ABDOMEN AND PELVIS WITH CONTRAST CLINICAL HISTORY: Weight loss, evaluate for malignancy. COMPARISON STUDY: None. TECHNIQUE: Following IV administration of 92 mL of Optiray, axial images of the abdomen and pelvis we re obtained from the lung bases to the proximal femurs. Images were reviewed in the axial, sagittal, and coronal planes. IV contrast was administered without complication. Automated exposure control wa s utilized for the study. A dose lowering technique was utilized adhering to the principles of ALARA . CT DOSE: 752.09 mGy.cm FINDINGS: Please note that the chest CT will be reported separately. Lower lung opacities, greatest w ithin the left lower lobe are better depicted on that exam. This study is compromised by motion artif act and paucity of intra-abdominal fat. No pneumatosis, free air or portal venous gas. No hepatic les ions are identified. There is no biliary or pancreatic ductal dilatation. Spleen, adrenal glands and pancreas are unremarkable. Multiple small bilateral renal calculi measure up to 3 mm. There are no ur eteral calculi. There is no hydronephrosis. No evidence for a bowel obstruction. There is a moderate to large amount stool within the colon and rectum. There is no lymphadenopathy. There is no ascites. Major vasculature is patent. No suspicious lesions are identified within the visualized skeletal stru ctures. Note is made of a rim-enhancing 3.2 x 1.4 cm intramuscular fluid collection within the left g luteus refugio overlying the left ischial tuberosity on axial image 468 of 511. There is overlying in filtration and mild skin thickening. There is fluid within a distended right trochanteric bursa. IMPRESSION: 1. No evidence for malignancy within the abdomen or pelvis. Exam compromised given motion artifact an d paucity of intra-abdominal fat. 2. 3.2 x 1.4 cm rim-enhancing intramuscular fluid collection within the left gluteus refugio with ove rlying infiltration and suspected skin thickening with cellulitis. This collection favors an intramus cular abscess. This finding will be called/faxed to ordering provider at time of dictation. 3. Moderate to large amount of stool within the colon and rectum. No bowel obstruction. 4. Bilateral nephrolithiasis. ACT 112: Negative or not required by law. Electronically signed by: Milan Torrez M.D. 10/23/2021 7:54 AM
[2021-10-23 08:07] LABS: Hemoglobin 12.2 g/dl (14.0-18.0); Mean Corpuscular Hemoglobin 31.2 pg (25.0-34.0); Mean Corpuscular Hgb Conc 32.1 g/dL (32.0-36.0); Mean Corpuscular Volume 97.2 fL (80.0-100.0); Mean Platelet Volume 11.9 fL (9.4-12.4); Platelet Count 106 K/uL (130-400); RDW Coefficient of Variation 15.2 % (11.5-14.5); RDW Standard Deviation 54.6 fL (36.4-46.3); Red Blood Count 3.91 M/uL (4.63-6.08); White Blood Count 6.36 K/ul (4.8-10.8)
[2021-10-23 08:32] LABS: Alanine Aminotransferase 11 U/L (7-52); Albumin Globulin Ratio 0.9 (0.9-2); Albumin Level 3.4 gm/dl (3.4-5.0); Alkaline Phosphatase 58 U/L (34-104); Anion Gap 3 (3-11); Aspartate Aminotransferase 20 U/L (13-39); BUN Creatinine Ratio 20.7 (10-20); Bilirubin,Total 0.5 mg/dl (0.2-1.0); Blood Urea Nitrogen 12 mg/dl (6-23); Calcium 9.6 mg/dl (8.5-10.1); Carbon Dioxide 32 mmol/L (21-32); Chloride 102 mmol/L (98-107); Chol HDL Ratio 2.5 (0-5); Cholesterol 136 mg/dl (0-200); Est GFR (African American) 131.2 ml/min; Est GFR (Non-African American) 113.2 ml/min; Globulin 3.6 gm/dl (2.5-4.0); Glucose 88 mg/dl (70-99(Fasting)); HDL Cholesterol 54 mg/dl; LDL Cholesterol Calculated 72 mg/dl; Potassium 5.2 mmol/L (3.5-5.1); Sodium 137 mmol/L (136-145); Triglycerides 50 mg/dl (0-150); VLDL Cholesterol 10 mg/dl (0-30)
[2021-10-23] MEDS: APIXABAN 2.5 MG TAB PO SCH ×2 (08:38→20:39)
[2021-10-23] MEDS: PANTOprazole 40 MG TAB PO SCH (08:38)
[2021-10-23] MEDS: CHOLECALCIFEROL 1,000 UNITS 25 MCG TAB PO SCH ×2 (08:39→20:39)
[2021-10-23] MEDS: ASCORBIC ACID 500 MG TAB PO SCH ×2 (08:39→20:39)
[2021-10-23] MEDS: MULTIVITAMIN TAB PO SCH (08:39)
[2021-10-23] MEDS: BROMOCRIPTINE MESYLATE 2.5 MG TAB PO SCH ×2 (08:39→16:30)
[2021-10-23] MEDS: FOLIC ACID 1 MG TAB PO SCH (08:39)
[2021-10-23] MEDS: clonazePAM 0.5 MG TAB PO SCH (08:43)
[2021-10-23] MEDS ORDERED: ACETYLCYSTEINE 10% INHAL SOLN 4 ML **DISPENSED BY RESP. INH SCH (09:00)
[2021-10-23] MEDS: ALBUTEROL 0.5% NEB SOLN 2.5 MG/0.5 ML VIAL NEB PRN (09:35)
--- NOTE | 2021-10-23 10:09 | Surgery Consultation ---
Date of Consultation October 23, 2021 Assessment & Plan (1) Ataxia: Left buttock hematoma related to fall and Eliquis. Exam benign, WBC normal, doubt abscess. No indication for drainage at this time. Will sign off. Supervising Physician Co-Signing Physician Notes agree with above, on Eliquis with fall and resultant hematoma. CT reviewed, likely walled off resolving hematoma, no indication for drainage or surgery. sign off. History of Present Illness Attending Physician: Kobe Thayer MD History of Present Illness 56 y/o male with seizure disorder, bipolar resident of prison brought in yesterday for weakness, weight loss. Had an unwitnessed fall of some type and was found in a bird bath about 2 weeks ago. Noticed to have large bruising of left buttock and leg and was seen in ED at that time. He is on Eliquis for h/o DVT. CT on admission demonstrated 3x2 cm collection in gluteus muscle adjacent to ischial tuberosity initially read as hematoma, re-read as possible abscess. Allergies Allergy/AdvReac Type Severity Reaction Status Date / Time amoxicillin Allergy Mild unknown Verified 12/26/18 10:05 haloperidol Allergy Mild unknown Verified 12/26/18 10:05 lithium Allergy Unknown Unverified 12/26/18 10:05 Penicillins Allergy Unknown Verified 10/22/21 23:04 valproic acid Allergy Unknown Verified 10/22/21 23:04 Home Medications Medication Instructions Recorded Confirmed Type ascorbic acid (vitamin C) 500 mg 500 mg PO BID@08,20 12/26/18 10/22/21 History tablet (Vitamin C) bromocriptine 2.5 mg tablet 2.5 mg PO DAILY@08,17 12/26/18 10/22/21 History (Parlodel) cholecalciferol (vitamin D3) 25 1,000 unit PO BID@,20 12/26/18 10/22/21 History mcg (1,000 unit) chewable tablet (Vitamin D3) divalproex 250 mg tablet,delayed 250 mg PO DAILY@1600 12/26/18 10/22/21 History release divalproex 500 mg tablet,extended 1,000 mg PO BID@08,20 12/26/18 10/22/21 History release 24 hr (Depakote ER) folic acid 1 mg tablet 1 mg PO DAILY@08 12/26/18 10/22/21 History multivitamin 1 tab PO DAILY@08 12/26/18 10/22/21 History apixaban 2.5 mg tablet (Eliquis) 2.5 mg PO BID 10/22/21 10/22/21 History clonazepam 0.5 mg tablet 0.5 mg PO QAM 10/22/21 10/22/21 History omeprazole 10 mg capsule,delayed 10 mg PO DAILY 10/22/21 10/22/21 History release quetiapine 300 mg tablet (Seroquel) 150 mg PO HS 10/22/21 10/22/21 History temazepam 30 mg capsule (Restoril) 30 mg PO HS 10/22/21 10/22/21 History Patient History Medical History (Updated 10/23/21 @ 15:34 by Gagan Ambrose MD) Aspiration pneumonitis Atelectasis, right Bipolar disease, chronic Intellectual disability Intermittent explosive Surgical History (Updated 10/22/21 @ 14:03 by Anny Gusman PA-C) Hx of colonoscopy Family History Father Cancer Heart disease Mother Cancer Hypertension Other Family history non-contributory Social History Smoking Status: Unknown if ever smoked Second Hand Exposure: No; Do You Dip or Chew Tobacco: No; Tobacco Cessation Education Requested by Patient: No Hx Alcohol Use: No Hx Substance Use: No Preferred Language: Mauritanian Communication Ability: Impaired Biomass Facilitator Required: No Beliefs That Will Affect Care: None Current Living Situation: Half-Way Current Living Situation Comment: pt lives in a prison Other Information That Helps Us Care for You: No Feels Safe at Home: Yes Safety Concerns: Feels Safe At This Time Assistive Devices: Oxygen - Continuous, Walker and Wheelchair Review of Systems Review of Systems: Unobtainable due to cognitive status Physical Exam Constitutional: + thin; no acute distress Musculoskeletal: resolving ecchymosis of left buttock and upper leg, nontender tuberosity Results & Data ([facility]) Vital Signs (Past 12 Hours) Vital Signs Temp Pulse Pulse Resp BP BP Pulse Ox 10/23/21 09:36 109 H 18 79 L 09/08/22 07:40 36.6 C 98 H 16 107/67 95 10/23/21 00:50 10/22/21 23:51 36.4 C L 105 H 20 119/66 93 10/22/21 23:08 94 H 20 109/71 95 O2 Del Method O2 Flow Rate 10/23/21 09:36 Nasal Cannula 2 10/23/21 07:40 Nasal Cannula 2 10/23/21 00:50 Nasal Cannula 3 10/22/21 23:51 10/22/21 23:08 Nasal Cannula 3 PG Care Time/CCT Total # of Minutes Spent Total Time Spent with Patient: Total time spent is greater than 50% in coordination of care (as documented) at patient's floor/unit and/or counseling patient: Coding Level of Care Code 08767 Inpt Consult Level 2 Diagnoses Ataxia R27.0
[2021-10-23] MEDS ORDERED: FUROSEMIDE INJ 20 MG/2 ML VIAL IV STA (10:10)
--- NOTE | 2021-10-23 10:13 | Electrocardiogram Report ---
Test Reason : Blood Pressure : / mmHG Vent. Rate : 079 BPM Atrial Rate : 079 BPM P-R Int : 138 ms QRS Dur : 082 ms QT Int : 358 ms P-R-T Axes : 057 021 052 degrees QTc Int : 410 ms Normal sinus rhythm Normal ECG No previous ECGs available Confirmed by Shan Chavez ([id number]) on 10/23/2021 10:13:04 AM Referred By: REFERRED SELF Confirmed By:Shan Chavez
--- NOTE | 2021-10-23 10:25 | XRay Report ---
SINGLE VIEW CHEST CLINICAL HISTORY: Hypoxia FINDINGS: An AP, portable, upright chest radiograph is compared to chest x-ray and chest CT dated 10/22. The examination is degraded by portable technique and patient rotation. The cardiomediastinal silhouette is unremarkable. There is increasing consolidation in the right lung base, volume loss in the right lung and rightward shift of mediastinum. This likely represents at least segmental and pos sibly lobar atelectasis. Mild atelectasis is in the left lung base. No large pleural effusion or pneu mothorax is identified. The skeletal structures are osteopenic. The bony thorax is grossly intact. IMPRESSION: 1. There is increasing consolidation at the right lung base, with volume loss in the right lung and r ightward shift of the mediastinum. This likely represents significant atelectasis at the right lung b ase which may be lobar. This has significantly increased from yesterday. 2. Mild atelectasis is seen at the left lung base. ACT 112: Negative or not required by law. Electronically signed by: Jerrod Tim M.D. 10/23/2021 10:22 AM
[2021-10-23 10:41] LABS: Estimated Average Glucose 94 mg/dl; Hemoglobin A1C 4.9 % (4.5-5.6)
[2021-10-23] MEDS: CEFEPIME 2,000 MG in SYRINGE 0 ML IV SCH ×2 (10:48→16:34)
--- NOTE | 2021-10-23 11:07 | Pulmonary Consultation ---
Date of Consultation October 23, 2021 Assessment & Plan (1) Acute respiratory failure with hypoxia: Continue supplemental oxygen to maintain saturations of 88 to 92%. Hypoxemia likely from intrapulmonary shunting atelectasis. Wean high flow as able. (2) Atelectasis, right: Vest 4 times daily, hypertonic saline twice daily, Brovana twice daily, nebulized budesonide twice daily. (3) Aspiration pneumonitis: Continue empiric antibiotics. MRSA screen pending. Patient on daptomycin for unclear reasons. Daptomycin has no role in pulmonary infection and should be discontinued if it is being used for pulmonary reasons. History of Present Illness Attending Physician: Kobe Thayer MD History of Present Illness 56-year-old male with a past medical history of severe intellectual disability and behavioral disorder presented to the ER due to a fall and increased encephalopathy. Patient is unable to give any relevant history as he is nonverbal at baseline. He was admitted by the hospitalist service for monitoring. He was found to have an elevated valproic acid level. He was also found to have findings concerning for possible aspiration pneumonia. He was started on daptomycin and cefepime by the hospitalist service. Procalcitonin checked 10/23/2021 was 0.08. MRSA screen pending. CT chest on admission was limited due to motion artifact, but bibasilar predominant consolidative opacities were noted. Bronchial wall thickening was noted as well. Chest x-ray from today reveals increasing consolidation of the right lung base concerning for possible atelectasis. Patient is currently on high flow nasal cannula. Allergies Allergy/AdvReac Type Severity Reaction Status Date / Time amoxicillin Allergy Mild unknown Verified 12/26/18 10:05 haloperidol Allergy Mild unknown Verified 12/26/18 10:05 lithium Allergy Unknown Unverified 12/26/18 10:05 Penicillins Allergy Unknown Verified 10/22/21 23:04 valproic acid Allergy Unknown Verified 10/22/21 23:04 Home Medications Medication Instructions Recorded Confirmed Type ascorbic acid (vitamin C) 500 mg 500 mg PO BID@,12/26/18 10/22/21 History tablet (Vitamin C) bromocriptine 2.5 mg tablet 2.5 mg PO DAILY@08,17 12/26/18 10/22/21 History (Parlodel) cholecalciferol (vitamin D3) 25 1,000 unit PO BID@12/26/18 10/22/21 History mcg (1,000 unit) chewable tablet (Vitamin D3) divalproex 250 mg tablet,delayed 250 mg PO DAILY@1600 12/26/18 10/22/21 History release divalproex 500 mg tablet,extended 1,000 mg PO BID@08,12/26/18 10/22/21 History release 24 hr (Depakote ER) folic acid 1 mg tablet 1 mg PO DAILY@12/26/18 10/22/21 History multivitamin 1 tab PO DAILY@12/26/18 10/22/21 History apixaban 2.5 mg tablet (Eliquis) 2.5 mg PO BID 10/22/21 10/22/21 History clonazepam 0.5 mg tablet 0.5 mg PO QAM 10/22/21 10/22/21 History omeprazole 10 mg capsule,delayed 10 mg PO DAILY 10/22/21 10/22/21 History release quetiapine 300 mg tablet (Seroquel) 150 mg PO HS 10/22/21 10/22/21 History temazepam 30 mg capsule (Restoril) 30 mg PO HS 10/22/21 10/22/21 History Patient History Medical History (Updated 10/23/21 @ 15:34 by Gagan Ambrose MD) Aspiration pneumonitis Atelectasis, right Bipolar disease, chronic Intellectual disability Intermittent explosive Surgical History (Updated 10/22/21 @ 14:03 by Anny Gusman PA-C) Hx of colonoscopy Family History Father Cancer Heart disease Mother Cancer Hypertension Other Family history non-contributory Social History Smoking Status: Unknown if ever smoked Second Hand Exposure: No; Do You Dip or Chew Tobacco: No; Tobacco Cessation Education Requested by Patient: No Hx Alcohol Use: No Hx Substance Use: No Preferred Language: Ukrainian Communication Ability: Impaired Assistant Loan Processor Required: No Beliefs That Will Affect Care: None marital status: Single Current Living Situation: Halfway Current Living Situation Comment: pt lives in a [facility] Other Information That Helps Us Care for You: No Feels Safe at Home: Yes Safety Concerns: Feels Safe At This Time Assistive Devices: Walker Review of Systems Review of Systems: Unobtainable due to cognitive status Physical Exam Constitutional: 56-year-old male in no distress on 8L of o2 via nc ENMT: external ear and nose normal, oropharynx normal Respiratory: Diminished at the right lung base. No wheeze. Cardiovascular: Tachycardic. No murmur. No edema. Gastrointestinal (Abdomen): normal bowel sounds, soft, nontender, no hepatosplenomegaly Skin: no rashes, warm and dry Neurologic: Nonverbal. Moves all extremities. Results & Data Results & Data ([facility]) Vital Signs (Past 12 Hours) Vital Signs Temp Pulse Pulse Resp BP BP Pulse Ox 10/23/21 09:49 85 L 10/23/21 09:36 109 H 18 79 L 10/23/21 07:40 36.6 C 98 H 16 107/67 95 10/23/21 00:50 10/22/21 23:51 36.4 C L 105 H 20 119/66 93 10/22/21 23:08 94 H 20 109/71 95 O2 Del Method O2 Flow Rate 10/23/21 09:49 Oxymask 13 10/23/21 09:36 Nasal Cannula 2 10/23/21 07:40 Nasal Cannula 2 10/23/21 00:50 Nasal Cannula 3 10/22/21 23:51 10/22/21 23:08 Nasal Cannula 3 PG Care Time/CCT Total # of Minutes Spent Total Time Spent with Patient: Total time spent is greater than 50% in coordination of care (as documented) at patient's floor/unit and/or counseling patient: Coding Level of Care Code 96543 Initial Inpt Care Lvl 3 Diagnoses Acute respiratory failure with hypoxia J96.01 Atelectasis, right J98.11 Aspiration pneumonitis J69.0
[2021-10-23] MEDS ORDERED: LEVALBUTEROL 1.25MG/0.5ML NEB NEB SCH ×2 (11:31→19:00)
[2021-10-23] MEDS ORDERED: LEVALBUTEROL HCL 1.25 MG/3 ML NEB ONE (11:42)
[2021-10-23] MEDS: Patient's HEIGHT &/or WEIGHT Needed SCH ×3 (12:20→22:39)
--- NOTE | 2021-10-23 12:29 | Hospitalist Progress Note ---
Date of Service October 23, 2021 Assessment & Plan (1) Acute respiratory failure with hypoxia: Plan: desaturating this morning repeat CXR: 1. There is increasing consolidation at the right lung base, with volume loss in the right lung and rightward shift of the mediastinum. This likely represents significant atelectasis at the right lung base which may be lobar. This has significantly increased from yesterday. 2. Mild atelectasis is seen at the left lung base. Dapto + Cefepime IV started High flow o2 ordered Pulm consulted, added Performist and Budesonide nebs hypertonic saline nebs percussion vest (2) Weakness: (3) Valproic acid toxicity: (4) Seizure disorder: (5) Bipolar disease, chronic: Plan: per admitting service notes with addendum: -Will hold valproic acid for now as appears that some of his symptoms may be related to toxicity with level going from the mid 90s to 121. Possible due to malabsorption with recent weight loss and medication dosing needing to be reduced, no recent medication dosing changes. -Medication changes include clonazepam 0.5 mg every morning to scheduled and temazepam increased to 15 to 30 mg at bedtime. -Neuro consulted for hx of weakness with elevated depakote level, and seizure disorder hx, per HPI, no witnessed seizure in the past 13 years -PT/OT -Behavioral disturbances noted in HPI, he currently has not been walking, calm, lethargic, monitor for need for 1:1 at bedside -Epic reviewed and last tox screen was positive for benzodiazepines appropriately, PDMP reviewed as well. Order urine drug screen for completeness. -TSH 1.315 - Check B12 and folic acid -Noted that during his last visit to PCP in mid September his Seroquel and Remeron were increased 10/23 Depakote held Neurology consulted (6) Weight loss: Plan: per admitting service notes with addendum: -Concern for weight loss of greater than 20 pounds unintentionally in the past few months - on outpt review mother was concerned about 17 lbs down since July despite 2 boost and 1 benecalorie daily, on average is consuming 2500 to 3000 kenny daily. Allow pureed and pudding thick liquids. Aspiration precautions. -Check CT the chest, abdomen pelvis to eval for underlying malignancy, consider a Ca1 29 level -NSS x 1 bag s/p contrast with CTs - Recent colonoscopy in August 2021 but had poor prep and has been rescheduled, it was done due to high risk colon cancer surveillance, and personal hx of tubular adenoma found on colonoscopy in May 2015 -PSA was 0.44 on 09/24/21 -Dietitian consulted for nutritional status, continue boost supplementation 3 times daily as he uses protein supplements 3 times daily as outpatient -PT/OT consults -Albumin level is adequate at 4.0, consider sarcopenia if albumin level drops does not currently meet those qualifications 10/23 CT chest and abdomen: 1. Limited exam as above. 2. Bibasilar predominant consolidative opacities are suggestive of pneumonia versus aspiration pneumonitis. 3. Bronchial wall thickening suggestive of bronchitis or reactive airway disease with mild bibasilar mucous plugging. 1. No evidence for malignancy within the abdomen or pelvis. Exam compromised given motion artifact and paucity of intra-abdominal fat. 2. 3.2 x 1.4 cm rim-enhancing intramuscular fluid collection within the left gluteus refugio with overlying infiltration and suspected skin thickening with cellulitis. This collection favors an intramuscular abscess. This finding will be called/faxed to ordering provider at time of dictation. 3. Moderate to large amount of stool within the colon and rectum. No bowel obstruction. 4. Bilateral nephrolithiasis. no evidence of malignancy per current imagings NPO for now til evaluated by Speech Tx Infection Control Manager consulted General surgery consulted for possible buttock abscess CT finding felt to be hematoma no drainage recommended monitor DVT PPx: - teds, scds, Eliquis twice daily CODE: Full code Dispo: From intermediate Admission and Anticipated Discharge Date Admission Date: October 22, 2021 Subjective ff up for weakness, hypoxic respiratory failure, etc seen with patient's caregivers at bedside - Jena and Dionne sitting up in bed, on O2 supplement awake, alert, not in distress non verbal, does not follow commands no signs of pain per caregivers, at baseline, patient cannot verbalize or gesture his needs, symptoms notified by RN later on that patient was desaturating to the 70s placed on oxymask, improved to 85% given Xopenex neb seen again at bedside not in respiratory distress but does have some retractions, mild accessory muscle use forehead probe showing 88-89% respiratory therapists at bedside, I requested High Flow O2 stat CXR also performed Lasix 20mg IV given transferred to PCU Review of Systems Review of Systems: all noted and negative except for above Physical Exam Physical Exam: General- awake, alert, (+) mild accessory muscle use and tachypnea non verbal, does not follow commands - baseline per caregivers Head- atraumatic Eyes- PERRL, EOMI, anicteric ENT- oropharynx clear Neck- supple, no JVD, no adenopathy, no thyromegaly; carotids +2/2, no bruits appreciated Lungs-(+) mild crackles at the bases no wheezing Heart- normal rate, regular rhythm; no murmur, no gallop, no rub appreciated Abdomen- normal bowel sounds, nondistended, soft, nontender, no masses or hepatosplenomegaly Extremities- no pretibial edema, no calf tenderness; peripheral pulses intact Buttock- Left:indurated area on palpation in the middle aspect, no erythema, warmth, tenderness Neuro- moves all extremities equally non verbal- baseline per caregivers no other new focal neurologic deficits ordered Skin- warm & dry Results & Data Results & Data ([facility]) Vital Signs (Past 12 Hours) Vital Signs Temp Pulse Resp BP Pulse Ox O2 Del Method O2 Flow Rate 10/23/21 10:15 109 H 20 88 L Nasal Cannula 15 10/23/21 11:50 118 H 22 94 High Flow Nasal Cannula 35 10/23/21 11:22 111 H 22 94 High Flow Nasal Cannula 35 10/23/21 09:49 85 L Oxymask 13 10/23/21 09:36 109 H 18 79 L Nasal Cannula 2 10/23/21 07:40 36.6 C 98 H 16 107/67 95 Nasal Cannula 2 10/23/21 00:50 Nasal Cannula 3 FiO2 10/23/21 10:15 10/23/21 11:50 100 10/23/21 11:22 100 10/23/21 09:49 10/23/21 09:36 10/23/21 07:40 10/23/21 00:50 all noted and reviewed including below (1) Valproic acid toxicity Encounter type: initial encounter Injury intent: accidental or unintentional Qualified Code(s): T42.6X1A - Poisoning by other antiepileptic and sedative- hypnotic drugs, accidental (unintentional), initial encounter
--- NOTE | 2021-10-23 12:30 | Neurology Consultation ---
Date of Consultation October 23, 2021 Assessment & Plan (1) Weakness: (2) Tardive dyskinesia: (3) Valproic acid toxicity: Plan 56-year-old male detention resident with profound intellectual disability and associated behavioral disorder characterized as bipolar type illness with a ssociated intermittent explosive disorder. He is essentially nonverbal at baseline and does not typically follow commands. He is typically ambulatory but has been exhibiting persistent weakness for the past week or so, occurring in the context of aspiration pneumonitis versus pneumonia with developing respiratory failure, poor p.o. intake as well as a possible small abscess within the left gluteus refugio. I do appreciate that his Depakote level is mildly elevated (121). The significance of this mild elevation in his Depakote level is not clear, however. Nonetheless, in the setting of his current illness and poor p.o. intake, I agree that there could be an element of Depakote toxicity. His Depakote has been on hold. According to staff, his Depakote dosage has not been adjusted in many years. I think would be reasonable to restart Depakote at a slightly lower dosage, would recommend Depakote DR 1000 mg twice daily. Discontinue the 250 mg dose. I would also point out that this patient's diagnosis of seizure disorder is not entirely certain. According to staff, he is not known to have seizures. They have known him for over 10 years and do not believe he has ever had any wi tnessed seizure activity. I cannot find any old records pertaining to this diagnosis. Nonetheless, I do not think obtaining an EEG or additional evaluation for seizure disorder is necessary in this context. Also, patient's Depakote is managed by his psychiatrist which I would presume would be for mood/behavioral stabilization rather than as an anticonvulsant. This patient also appears to have tardive dyskinesia. I also see that he is on bromocriptine, and a previous medication list included dantrolene. There may have been some concerns regarding neuroleptic malignant syndrome in this patient previously. He does not appear to have signs or symptoms of NMS currently. He should continue with bromocriptine. The effect of bromocriptine in managing tardive dyskinesia is not entirely clear, but not unreasonable. As above, other than restarting patient's Depakote at a lower dose, Depakote DR 1000 mg twice daily, I have no further immediate recommendations for this patient. Patient will continue to follow with his psychiatrist as an outpatient for ongoing management of his Depakote. History of Present Illness Reason for Consultation: Weakness, elevated valproic acid level Requesting Physician: Anny Gusman PA-C Attending Physician: Kobe Thayer MD History of Present Illness The patient is a 56-year old male detention resident with severe intellectual disability and associated behavioral disorder for which she has been following with psychiatry and is prescribed Depakote, Seroquel, clonazepam, bromocriptine, and temazepam. His history is notable for what is felt to be bipolar disorder characterized by prolonged episodes of increased energy, agitated behavior. Patient also has intermittent explosive disorder with some tendency for aggression at times. He is nonverbal. In speaking with staff at bedside this morning who have known him for at least the past 10 years, he has never had a convulsive episode or seizure. History notable for COVID infection last August which according to staff was relatively asymptomatic. He does have chronic difficulty with dysphagia and aspiration. According to staff he has been weak for the past week or so. He is not getting up and walking, he has been refusing to eat. He has not had any observed seizure activity, again, has not had any such activity in at least 10 years and his listed diagnosis of seizure disorder is somewhat questionable. He was found to have pneumonia or aspiration pneumonitis on a CT of the chest completed yesterday. A CT of the abdomen and pelvis revealed some changes suggestive of cellulitis within the left gluteal region, likely intramuscular abscess. A valproic acid level was 122 prompting some concerns for possible toxicity. Allergies Allergy/AdvReac Type Severity Reaction Status Date / Time amoxicillin Allergy Mild unknown Verified 12/26/18 10:05 haloperidol Allergy Mild unknown Verified 12/26/18 10:05 lithium Allergy Unknown Unverified 12/26/18 10:05 Penicillins Allergy Unknown Verified 10/22/21 23:04 valproic acid Allergy Unknown Verified 10/22/21 23:04 Home Medications Medication Instructions Recorded Confirmed Type ascorbic acid (vitamin C) 500 mg 500 mg PO BID@08,20 12/26/18 10/22/21 History tablet (Vitamin C) bromocriptine 2.5 mg tablet 2.5 mg PO DAILY@08,17 12/26/18 10/22/21 History (Parlodel) cholecalciferol (vitamin D3) 25 1,000 unit PO BID@,12/26/18 10/22/21 His tory mcg (1,000 unit) chewable tablet (Vitamin D3) divalproex 250 mg tablet,delayed 250 mg PO DAILY@1600 12/26/18 10/22/21 History release divalproex 500 mg tablet,extended 1,000 mg PO BID@08,20 12/26/18 10/22/21 History release 24 hr (Depakote ER) folic acid 1 mg tablet 1 mg PO DAILY@08 12/26/18 10/22/21 History multivitamin 1 tab PO DAILY@08 12/26/18 10/22/21 History apixaban 2.5 mg tablet (Eliquis) 2.5 mg PO BID 10/22/21 10/22/21 History clonazepam 0.5 mg tablet 0.5 mg PO QAM 10/22/21 10/22/21 History omeprazole 10 mg capsule,delayed 10 mg PO DAILY 10/22/21 10/22/21 History release quetiapine 300 mg tablet (Seroquel) 150 mg PO HS 10/22/21 10/22/21 History temazepam 30 mg capsule (Restoril) 30 mg PO HS 10/22/21 10/22/21 History Patient History Medical History Bipolar disease, chronic Intellectual disability Intermittent explosive Surgical History (Updated 10/22/21 @ 14:03 by Anny Gusman PA-C) Hx of colonoscopy Family History Father Cancer Heart disease Mother Cancer Hypertension Other Family history non-contributory Social History Smoking Status: Unknown if ever smoked Hx Alcohol Use: No Hx Substance Use: No Preferred Language: Czech Communication Ability: Unable Column Precaster Required: No Current Living Situation: Other Current Living Situation Comment: pt lives in a detention Other Information That Helps Us Care for You: No Feels Safe at Home: Yes Assistive Devices: None Review of Systems Review of Systems: Unobtainable due to cognitive status Exam (Neuro) Constitutional: + thin and + behavioral limitations Eyes: normal visual clayton by confrontation, PERRL and EOM intact bilaterally Cardiovascular: Vessels: normal carotid upstroke; no carotid bruit Neurologic: Oriented to:: negative Person, Place or Time Memory: negative Short Term Intact or Remote Intact Attention: negative Span Intact or Concentration Intact Speech Fluency: Limited Comprehension, Verbal Skills Limited and Other (Patient is nonverbal) Fund of Knowledge: negative Current Events, Past History or Vocabulary Cranial Nerves: Normal II, III, IV, , V, VII, VIII, IX, X, XI and XII Motor Strength: Normal Upper Extremities; negative Normal Lower Extremities Motor Tone: Normal Lower Extremities and Normal Upper Extremities Muscle Bulk/Involuntary Movements: Rest Tremor (Arm) Sensation: Light Touch Intact, Pain/Temperature Intact, Vibration Intact and Proprioception Intact Coordination: negative Normal (Unable to fully assess due to poor patient cooperation) Deep Tendon Reflexes: Rt Triceps: 2+, Lt Triceps: 2+, Rt Biceps: 2+, Lt Biceps: 2+, Rt Brachioradialis: 2+, Lt Brachioradialis: 2+, Rt Patellar: 2+, Lt Patellar: 2+, Rt Ankle: 2+ and Lt Ankle: 2+ Special Tests: negative Babinski Present Details: Unable to evaluate gait. Patient does not cooperate for direct ophthalmoscopic examination. Patient exhibits generalized restlessness, perioral tremor, tardive dyskinesia. Results & Data ([facility]) Vital Signs (Past 12 Hours) Vital Signs Temp Pulse Resp BP Pulse Ox O2 Del Method O2 Flow Rate 10/23/21 10:15 109 H 20 88 L Nasal Cannula 15 10/23/21 11:50 118 H 22 94 High Flow Nasal Cannula 35 10/23/21 11:22 111 H 22 94 High Flow Nasal Cannula 35 10/23/21 09:49 85 L Oxymask 13 10/23/21 09:36 109 H 18 79 L Nasal Cannula 2 10/23/21 07:40 36.6 C 98 H 16 107/67 95 Nasal Cannula 2 10/23/21 00:50 Nasal Cannula 3 FiO2 10/23/21 10:15 10/23/21 11:50 100 10/23/21 11:22 100 10/23/21 09:49 10/23/21 09:36 10/23/21 07:40 10/23/21 00:50 Laboratory Results WBC 6.36, hemoglobin 12.2, hematocrit 38.0, MCV 97.2, platelet count 106, sodium 137, potassium 5.2, BUN 12, creatinine 0.58, glucose 88, hemoglobin A1c 4.9, calcium 9.6, AST 20, ALT 11, triglycerides 50, cholesterol 136, LDL 72, VLDL 10, HDL 54, vitamin B12 891, folate greater than 22.30, TSH 1.315, valproic acid level 121, SARS-CoV-2 testing negative. Diagnostic Findings A CT of the head completed yesterday was negative for hemorrhage or acute process. I did independently review the images. There is mild generalized atrophy, no hydrocephalus. Electrocardiogram completed yesterday revealed a normal sinus rhythm, 79 bpm. Coding Level of Care Code 80881 Initial Inpt Care [facility] 3 Diagnoses Weakness R53.1 Tardive dyskinesia G24.01 Valproic acid toxicity T42.6X1A Encounter type: initial encounter Injury intent: accidental or unintentional (1) Valproic acid toxicity Encounter type: initial encounter Injury intent: accidental or unintentional Qualified Code(s): T42.6X1A - Poisoning by other antiepileptic and sedative- hypnotic drugs, accidental (unintentional), initial encounter
[2021-10-23] MEDS ORDERED: DAPTOmycin 250 MG in SYRINGE 0 ML IV SCH (13:00)
[2021-10-23] MEDS: BUDESONIDE 0.25 MG/2 ML VIAL (PULMICORT) NEB SCH (19:14)
[2021-10-23] MEDS: SODIUM CHLOR 7% 4 ML NEB NEB SCH (19:15)
[2021-10-23] MEDS: FORMOTEROL 20 MCG/2 ML VIAL INH SCH (19:15)
[2021-10-23] MEDS: TEMAZEPAM 15 MG CAPSULE PO SCH (20:39)
[2021-10-23] MEDS: ACETAMINOPHEN 325 MG TAB PO PRN (20:39)
[2021-10-23] MEDS: QUEtiapine FUMARATE 25 MG TABLET PO SCH (20:39)
[2021-10-23] MEDS ORDERED: SODIUM CHLORIDE 0.9% 500 ML IV ONE (21:28)
[2021-10-23] MEDS ORDERED: MEROPENEM 1,000 MG in SYRINGE 0 ML IV SCH (21:30)
--- NOTE | 2021-10-23 21:30 | Communication Note ---
Date of Service: October 23, 2021 Patient tachycardic and febrile. Cardiac rate 120s. AP Recurrent fever Sepsis secondary to aspiration pneumonia, left gluteal abscess Currently on Cefepime and Daptomycin Rx Change cefepime to Meropenem for anaerobic coverage given aspiration pneumonia Will relay to AM provider.
[2021-10-23] MEDS: MEROPENEM 500 MG in SYRINGE 0 ML IV SCH (21:53)
[2021-10-23] MEDS: MAGNESIUM SULFATE / D5W 1 GM/100 ML BAG IV SCH (23:14)
[2021-10-23 23:16] LABS: BUN Creatinine Ratio 28.4 (10-20); Calcium 8.8 mg/dl (8.5-10.1); Creatinine Clr Calc Pharmacy 107.6 ml/min; Est GFR (African American) 118.7 ml/min; Est GFR (Non-African American) 102.4 ml/min; Potassium 4.1 mmol/L (3.5-5.1)
[2021-10-23] MEDS ORDERED: SODIUM CHLORIDE 0.9% 1000ML 1,000 ML IV ONE (23:28)
[2021-10-24] MEDS: MAGNESIUM SULFATE / D5W 1 GM/100 ML BAG IV SCH (00:54)
[2021-10-24] MEDS: MEROPENEM 500 MG in SYRINGE 0 ML IV SCH ×2 (04:48→09:36)
[2021-10-24] MEDS: BUDESONIDE 0.25 MG/2 ML VIAL (PULMICORT) NEB SCH ×2 (06:56→20:45)
[2021-10-24] MEDS: FORMOTEROL 20 MCG/2 ML VIAL INH SCH ×2 (06:56→20:45)
[2021-10-24] MEDS: SODIUM CHLOR 7% 4 ML NEB NEB SCH ×2 (07:03→20:44)
[2021-10-24 08:12] LABS: Eosinophils # (auto) 0.02 K/uL (0-0.50); Eosinophils % (auto) 0.3 %; Hematocrit (blood only) 39.3 % (40.1-51.0); Hemoglobin 12.7 g/dl (14.0-18.0); Immature Granulocytes # (auto) 0.02 K/uL (0.00-0.02); Immature Granulocytes % (auto) 0.3 %; Lymphocytes # (auto) 0.81 K/uL (1.2-3.4); Lymphocytes % (auto) 10.9 %; Mean Corpuscular Hemoglobin 31.3 pg (25.0-34.0); Mean Corpuscular Hgb Conc 32.3 g/dL (32.0-36.0); Mean Corpuscular Volume 96.8 fL (80.0-100.0); Mean Platelet Volume 12.1 fL (9.4-12.4); Monocytes # (auto) 0.39 K/uL (0.24-0.82); Monocytes % (auto) 5.2 %; Neutrophils % (auto) 83.3 %; Platelet Count 104 K/uL (130-400); RDW Coefficient of Variation 15.3 % (11.5-14.5); RDW Standard Deviation 54.8 fL (36.4-46.3); Red Blood Count 4.06 M/uL (4.63-6.08); White Blood Count 7.44 K/ul (4.8-10.8)
[2021-10-24 08:46] LABS: BUN Creatinine Ratio 24.3 (10-20); Calcium 9.6 mg/dl (8.5-10.1); Creatinine Clr Calc Pharmacy 99.8 ml/min; Est GFR (African American) 121.4 ml/min; Est GFR (Non-African American) 104.8 ml/min; Magnesium 2.2 mg/dl (1.7-2.4); Potassium 4.6 mmol/L (3.5-5.1)
[2021-10-24] MEDS: BROMOCRIPTINE MESYLATE 2.5 MG TAB PO SCH ×2 (08:48→18:27)
[2021-10-24] MEDS: FOLIC ACID 1 MG TAB PO SCH (08:48)
[2021-10-24] MEDS: APIXABAN 2.5 MG TAB PO SCH ×2 (08:48→21:03)
[2021-10-24] MEDS: clonazePAM 0.5 MG TAB PO SCH (08:48)
[2021-10-24] MEDS: PANTOprazole 40 MG TAB PO SCH (08:48)
[2021-10-24] MEDS: MULTIVITAMIN TAB PO SCH (08:48)
[2021-10-24] MEDS: CHOLECALCIFEROL 1,000 UNITS 25 MCG TAB PO SCH ×2 (08:48→21:04)
[2021-10-24] MEDS: ASCORBIC ACID 500 MG TAB PO SCH ×2 (08:48→21:04)
--- NOTE | 2021-10-24 10:13 | XRay Report ---
XR chest 1V portable CLINICAL HISTORY: ff up, pneumonia and atelectasis COMPARISON STUDY: Chest CT October 22, 2021. Chest radiograph October 23, 2021. FINDINGS: Moderate right basilar airspace opacity is noted. However, right lower lung aeration has si gnificantly improved since prior exam. Left basilar opacity has mildly increased. No evidence for pul monary edema. There is no pneumothorax or pleural effusion. Cardiomediastinal silhouette is unremarka ble. IMPRESSION: 1. Moderate right basilar airspace opacity with significant improvement in right lung aeration since radiograph of October 23, 2021. This favors pneumonia or aspiration pneumonitis although resolving lobar atelectasis could appear similar. 2. Mild increase in left basilar opacity. ACT 112: Negative or not required by law. Electronically signed by: Milan Torrez M.D. 10/24/2021 10:12 AM
[2021-10-24] MEDS ORDERED: DIVALPROEX DELAY RELEASE 500 MG TAB PO ONE (12:30)
[2021-10-24] MEDS: DOXYCYCLINE HYCLATE 100 MG CAP PO SCH ×2 (13:28→21:05)
[2021-10-24] MEDS: metroNIDAZOLE 500 MG TAB PO SCH ×2 (13:29→21:02)
--- NOTE | 2021-10-24 15:38 | Pulmonology Progress Note ---
Date of Service October 24, 2021 Assessment & Plan (1) Acute respiratory failure with hypoxia: Plan: Resolved. Hypoxia was likely secondary to acute intrapulmonary shunt due to atelectasis. (2) Atelectasis, right: Plan: Vest 4 times daily, hypertonic saline twice daily, Brovana twice daily, nebulized budesonide twice daily. Can likely discontinue nebulized Brovana and budesonide in the next 1 to 2 days given rapid improvement. (3) Aspiration pneumonitis: Plan: MRSA screen negative. Pro-[place] negative. No significant fever or leukocytosis. Recommend repeating procalcitonin and if persistently unremarkable, then discontinuing antibiotics. Right lower lobe and middle lobe infiltrate most likely secondary to acute pneumonitis and not an infectious process. Plan Pulmonary to sign off at this time. Please call with questions. Thank you for the consultation. Admission and Anticipated Discharge Date Admission Date: October 22, 2021 Subjective Hypoxemia has resolved. Patient tolerating vest therapy. No acute concerns from respiratory therapy or nursing. Review of Systems 2 Review of Systems: All systems reviewed & are unremarkable except as noted in HPI & below Physical Exam Constitutional: 56-year-old male who is nonverbal. Does not appear to be in distress. ENMT: external ear and nose normal, oropharynx normal Respiratory: Clear auscultation bilaterally. Mild tachypnea. Cardiovascular: Tachycardic. No murmur. No edema. Gastrointestinal (Abdomen): normal bowel sounds, soft, nontender, no hepatosplenomegaly Skin: no rashes, warm and dry Neurologic: Nonverbal. Moves all extremities. Results & Data Results & Data ([facility]) Vital Signs (Past 12 Hours) Vital Signs Temp Pulse Resp BP Pulse Ox O2 Del Method O2 Flow Rate 10/24/21 12:32 36.4 C L 75 16 120/72 96 10/24/21 08:00 Room Air 10/24/21 08:00 36.5 C 72 18 122/76 96 10/24/21 07:03 84 18 99 Nasal Cannula 3 PG Care Time/CCT Total # of Minutes Spent Total Time Spent with Patient: Total time spent is greater than 50% in coordination of care (as documented) at patient's floor/unit and/or counseling patient: Coding Level of Care Code 98754 Subseq Hosp Care Lvl 2 Diagnoses Acute respiratory failure with hypoxia J96.01 Atelectasis, right J98.11 Aspiration pneumonitis J69.0
[2021-10-24] MEDS: CEFEPIME 2,000 MG in SYRINGE 0 ML IV SCH ×2 (16:43→22:08)
--- NOTE | 2021-10-24 17:20 | Hospitalist Progress Note ---
Date of Service October 24, 2021 Assessment & Plan (1) Acute respiratory failure with hypoxia: Plan: Secondary to bilateral pneumonia Secondary to atelectasis desaturating this morning repeat CXR: 1. There is increasing consolidation at the right lung base, with volume loss in the right lung and rightward shift of the mediastinum. This likely represents significant atelectasis at the right lung base which may be lobar. This has significantly increased from yesterday. 2. Mild atelectasis is seen at the left lung base. Dapto + Cefepime IV started High flow o2 ordered Pulm consulted, added Performist and Budesonide nebs hypertonic saline nebs percussion vest 10/24 Patient showing significant medical improvement Now on room air Positive fever overnight, changed to meropenem Antibiotics de-escalated to cefepime plus Flagyl plus doxycycline Follow-up cultures Continue Perforomist and budesonide x2 more days, hypertonic saline nebs Speech therapy consulted, recommending pured, extremely thick solids and liquids Urinary retention 600 cc Alan catheter ordered (2) Weakness: (3) Valproic acid toxicity: (4) Seizure disorder: (5) Bipolar disease, chronic: Plan: per admitting service notes with addendum: -Will hold valproic acid for now as appears that some of his symptoms may be related to toxicity with level going from the mid 90s to 121. Possible due to malabsorption with recent weight loss and medication dosing needing to be reduced, no recent medication dosing changes. -Medication changes include clonazepam 0.5 mg every morning to scheduled and temazepam increased to 15 to 30 mg at bedtime. -Neuro consulted for hx of weakness with elevated depakote level, and seizure disorder hx, per HPI, no witnessed seizure in the past 13 years -PT/OT -Behavioral disturbances noted in HPI, he currently has not been walking, calm, lethargic, monitor for need for 1:1 at bedside -Epic reviewed and last tox screen was positive for benzodiazepines appropriately, PDMP reviewed as well. Order urine drug screen for completeness. -TSH 1.315 - Check B12 and folic acid -Noted that during his last visit to PCP in mid September his Seroquel and Remeron were increased 10/24 Neurology consulted: Recommending Depakote 100 mg twice a day (6) Weight loss: Plan: Moderate protein-calorie malnutrition per admitting service notes with addendum: -Concern for weight loss of greater than 20 pounds unintentionally in the past few months - on outpt review mother was concerned about 17 lbs down since July despite 2 boost and 1 benecalorie daily, on average is consuming 2500 to 3000 kenny daily. Allow pureed and pudding thick liquids. Aspiration precautions. -Check CT the chest, abdomen pelvis to eval for underlying malignancy, consider a Ca1 29 level -NSS x 1 bag s/p contrast with CTs - Recent colonoscopy in August 2021 but had poor prep and has been rescheduled, it was done due to high risk colon cancer surveillance, and personal hx of tubular adenoma found on colonoscopy in May 2015 -PSA was 0.44 on 09/24/21 -Dietitian consulted for nutritional status, continue boost supplementation 3 times daily as he uses protein supplements 3 times daily as outpatient -PT/OT consults -Albumin level is adequate at 4.0, consider sarcopenia if albumin level drops does not currently meet those qualifications 10/23 CT chest and abdomen: 1. Limited exam as above. 2. Bibasilar predominant consolidative opacities are suggestive of pneumonia versus aspiration pneumonitis. 3. Bronchial wall thickening suggestive of bronchitis or reactive airway disease with mild bibasilar mucous plugging. 1. No evidence for malignancy within the abdomen or pelvis. Exam compromised given motion artifact and paucity of intra-abdominal fat. 2. 3.2 x 1.4 cm rim-enhancing intramuscular fluid collection within the left gluteus refugio with overlying infiltration and suspected skin thickening with cellulitis. This collection favors an intramuscular abscess. This finding will be called/faxed to ordering provider at time of dictation. 3. Moderate to large amount of stool within the colon and rectum. No bowel obstruction. 4. Bilateral nephrolithiasis. no evidence of malignancy per current imagings Automatic Outsole Cutter consulted, recommending boost 3 times daily General surgery consulted for possible buttock abscess CT finding felt to be hematoma no drainage recommended monitor History of DVT On Eliquis DVT PPx: - teds, scds, Eliquis twice daily CODE: Full code Dispo: Anticipate return to half-way when medically stable Admission and Anticipated Discharge Date Admission Date: October 22, 2021 Subjective ff up for acute hypoxic respiratory failure, etc seen resting in bed, comfortable On room air, sitting up, being fed Awake and alert Nonverbal Not in distress No nausea or vomiting No signs of pain No signs of respiratory distress, accessory muscle use Positive urinary retention of 600 cc per RN, Alan catheter placed No Other issues Review of Systems Review of Systems: all noted and negative except for above Physical Exam Physical Exam: General-nonverbal, not in distress, breathing with no effort or accessory muscle use Eyes- anicteric Neck- no JVD Lungs-mild crackles at the bases, no wheezing Heart- normal rate, regular rhythm; no murmurs Abdomen- normal bowel sounds, nondistended, soft, nontender Extremities- no pretibial edema, no calf tenderness Neuro- no new focal deficits Skin- warm & dry Results & Data Results & Data ([facility]) Vital Signs (Past 12 Hours) Vital Signs Temp Pulse Resp BP Pulse Ox O2 Del Method O2 Flow Rate 10/24/21 16:00 36.5 C 83 20 119/60 97 10/24/21 12:32 36.4 C L 75 16 120/72 96 10/24/21 08:00 Room Air 10/24/21 08:00 36.5 C 72 18 122/76 96 10/24/21 07:03 84 18 99 Nasal Cannula 3 all noted and reviewed including below (1) Valproic acid toxicity Encounter type: initial encounter Injury intent: accidental or unintentional Qualified Code(s): T42.6X1A - Poisoning by other antiepileptic and sedative- hypnotic drugs, accidental (unintentional), initial encounter
[2021-10-24] MEDS: ADVANCED PROBIOTIC 1250 MG CAPSULE PO SCH (18:28)
[2021-10-24] MEDS: TEMAZEPAM 15 MG CAPSULE PO SCH (21:01)
[2021-10-24] MEDS: DIVALPROEX DELAY RELEASE 500 MG TAB PO SCH (21:02)
[2021-10-24] MEDS: QUEtiapine FUMARATE 25 MG TABLET PO SCH (21:06)
[2021-10-24] MEDS: ACETAMINOPHEN 325 MG TAB PO PRN (23:32)
[2021-10-25 06:25] LABS: Basophils # (auto) 0.02 K/uL (0-0.2); Basophils % (auto) 0.3 %; Eosinophils # (auto) 0.05 K/uL (0-0.50); Eosinophils % (auto) 0.9 %; Hemoglobin 11.4 g/dl (14.0-18.0); Immature Granulocytes # (auto) 0.02 K/uL (0.00-0.02); Immature Granulocytes % (auto) 0.3 %; Lymphocytes # (auto) 1.55 K/uL (1.2-3.4); Lymphocytes % (auto) 26.6 %; Mean Corpuscular Hemoglobin 31.1 pg (25.0-34.0); Mean Corpuscular Hgb Conc 32.6 g/dL (32.0-36.0); Mean Corpuscular Volume 95.4 fL (80.0-100.0); Mean Platelet Volume 12.2 fL (9.4-12.4); Monocytes # (auto) 0.48 K/uL (0.24-0.82); Monocytes % (auto) 8.2 %; Neutrophils % (auto) 63.7 %; Platelet Count 108 K/uL (130-400); RDW Standard Deviation 53.1 fL (36.4-46.3); Red Blood Count 3.67 M/uL (4.63-6.08); White Blood Count 5.82 K/ul (4.8-10.8)
[2021-10-25 06:49] LABS: BUN Creatinine Ratio 44.6 (10-20); Calcium 9.2 mg/dl (8.5-10.1); Creatinine Clr Calc Pharmacy 107.8 ml/min; Est GFR (African American) 125.2 ml/min; Magnesium 1.8 mg/dl (1.7-2.4); Potassium 4.5 mmol/L (3.5-5.1)
[2021-10-25] MEDS: FORMOTEROL 20 MCG/2 ML VIAL INH SCH ×2 (07:16→19:24)
[2021-10-25] MEDS: BUDESONIDE 0.25 MG/2 ML VIAL (PULMICORT) NEB SCH ×2 (07:16→19:24)
[2021-10-25] MEDS: SODIUM CHLOR 7% 4 ML NEB NEB SCH ×2 (07:17→19:24)
[2021-10-25] MEDS: CEFEPIME 2,000 MG in SYRINGE 0 ML IV SCH (08:25)
[2021-10-25] MEDS: ASCORBIC ACID 500 MG TAB PO SCH ×2 (08:26→20:00)
[2021-10-25] MEDS: BROMOCRIPTINE MESYLATE 2.5 MG TAB PO SCH ×2 (08:27→18:25)
[2021-10-25] MEDS: CHOLECALCIFEROL 1,000 UNITS 25 MCG TAB PO SCH ×2 (08:27→20:00)
[2021-10-25] MEDS: FOLIC ACID 1 MG TAB PO SCH (08:28)
[2021-10-25] MEDS: MULTIVITAMIN TAB PO SCH (08:28)
[2021-10-25] MEDS: APIXABAN 2.5 MG TAB PO SCH ×2 (08:28→20:00)
[2021-10-25] MEDS: DIVALPROEX DELAY RELEASE 500 MG TAB PO SCH ×2 (08:29→20:02)
[2021-10-25] MEDS: ADVANCED PROBIOTIC 1250 MG CAPSULE PO SCH (08:29)
[2021-10-25] MEDS: DOXYCYCLINE HYCLATE 100 MG CAP PO SCH ×2 (08:29→20:02)
[2021-10-25] MEDS: metroNIDAZOLE 500 MG TAB PO SCH ×2 (08:30→15:46)
[2021-10-25] MEDS: PANTOprazole 40 MG TAB PO SCH (08:30)
[2021-10-25] MEDS: clonazePAM 0.5 MG TAB PO SCH (08:32)
--- NOTE | 2021-10-25 11:30 | XRay Report ---
XR chest 1V portable CLINICAL HISTORY: acute hypoxia COMPARISON STUDY: Chest CT October 22, 2021. Chest radiograph October 24, 2021. FINDINGS: There has been interval development of left lung opacification with volume loss. Elevation of the left hemidiaphragm with leftward mediastinal shift is noted. Right lower lung opacity has impr john. There is no pneumothorax. No definite pleural effusion. IMPRESSION: 1. Interval development of complete opacification of the left lung with volume loss. This suggests le ft lung atelectasis, likely due to a mucous plug. This finding will be called/faxed to the ordering p rovider at time of dictation. Old deformity of the proximal right humerus is incidentally noted. 2. Improvement in right lower lung airspace opacity. ACT 112: Negative or not required by law. Electronically signed by: Milan Torrez M.D. 10/25/2021 11:28 AM
[2021-10-25] MEDS ORDERED: RAPID SEQUENCE INDUCTION BAG ONE (11:52)
[2021-10-25] MEDS ORDERED: PROPOFOL IV EMULSION 10 MG/ML 100 ML VIAL IV ONE ×2 (11:53→13:01)
[2021-10-25] MEDS: ALBUTEROL 0.5% NEB SOLN 2.5 MG/0.5 ML VIAL NEB PRN (11:58)
[2021-10-25] MEDS ORDERED: ROCURONIUM BROMIDE 10 MG/ML 5 ML VIAL IV STA (12:58)
[2021-10-25] MEDS ORDERED: fentaNYL citrate 100 MCG/2 ML VIAL IV STA (12:58)
[2021-10-25] MEDS ORDERED: ETOMIDATE 2 MG/ML 20 ML VIAL IV ONE ×2 (12:58→15:07)
[2021-10-25] MEDS ORDERED: STAT IV Infusion **Titration per Protocol STA (12:58)
[2021-10-25] MEDS ORDERED: PROPOFOL BOLUS FROM BAG IV PRN (12:58)
[2021-10-25] MEDS ORDERED: propofoL 1,000 MG/100 ML VIAL IV SCH (13:00)
[2021-10-25] MEDS ORDERED: SODIUM CHLORIDE 0.9% 1000ML 1,000 ML IV ONE (13:01)
--- NOTE | 2021-10-25 14:03 | XRay Report ---
XR chest 1V portable CLINICAL HISTORY: s/p bronch COMPARISON STUDY: Chest radiograph performed earlier today. FINDINGS: Tip of endotracheal tube 1.2 cm above the meghana. Left lung aeration has significantly impr john. Persistent left lung airspace opacities with volume loss are noted. No abnormalities within the right lung are identified. Cardiac size is normal. No pneumothorax or pleural effusion is identified . IMPRESSION: 1. Tip of endotracheal tube 1.2 cm above the meghana. 2. Interval improvement in left lung aeration. No pneumothorax. ACT 112: Negative or not required by law. Electronically signed by: Milan Torrez M.D. 10/25/2021 2:01 PM
[2021-10-25 14:36] LABS: 7-Aminoclonaz, Confirm 115 ng/mL (<25); Hydro-Alp Ur, GC/MS NEGATIVE ng/mL (<25); Hydroxyethylflurazepam, Conf NEGATIVE ng/mL (<50); Hydroxymidazolam Ur, GC/MS NEGATIVE ng/mL (<50); Hydroxytriazolam NEGATIVE ng/mL (<50); Lorazepam, Ur GC/MS NEGATIVE ng/mL (<50); Nordiazepam, Confirm NEGATIVE ng/mL (<50); Oxazepam Ur, GC/MS >2000 ng/mL (<50); Temazepam, Confirm >2000 ng/mL (<50)
[2021-10-25] MEDS ORDERED: fentaNYL citrate 100 MCG/2 ML VIAL IV ONE (15:07)
[2021-10-25] MEDS ORDERED: ROCURONIUM BROMIDE 10 MG/ML 5 ML VIAL IV ONE (15:07)
--- NOTE | 2021-10-25 15:15 | Hospitalist Progress Note ---
Date of Service October 25, 2021 Assessment & Plan (1) Acute respiratory failure with hypoxia: Plan: Secondary to bilateral pneumonia Secondary to atelectasis desaturating this morning repeat CXR: 1. There is increasing consolidation at the right lung base, with volume loss in the right lung and rightward shift of the mediastinum. This likely represents significant atelectasis at the right lung base which may be lobar. This has significantly increased from yesterday. 2. Mild atelectasis is seen at the left lung base. Dapto + Cefepime IV started High flow o2 ordered Pulm consulted, added Performist and Budesonide nebs hypertonic saline nebs percussion vest 10/24 Patient showing significant medical improvement Now on room air Positive fever overnight, changed to meropenem Antibiotics de-escalated to cefepime plus Flagyl plus doxycycline Follow-up cultures Continue Perforomist and budesonide x2 more days, hypertonic saline nebs Speech therapy consulted, recommending pured, extremely thick solids and liquids 10/25 Patient noted to be desaturating again Stat chest x-ray: Complete left lung opacification, possible mucous plug Replaced on high flow O2 Transferred to ICU Discussed with Dr. Ross Continue cefepime plus Doxy, Flagyl Urinary retention 600 cc, Alan catheter ordered Continue Alan catheter for now (2) Weakness: (3) Valproic acid toxicity: (4) Seizure disorder: (5) Bipolar disease, chronic: Plan: per admitting service notes with addendum: -Will hold valproic acid for now as appears that some of his symptoms may be related to toxicity with level going from the mid 90s to 121. Possible due to malabsorption with recent weight loss and medication dosing needing to be reduced, no recent medication dosing changes. -Medication changes include clonazepam 0.5 mg every morning to scheduled and temazepam increased to 15 to 30 mg at bedtime. -Neuro consulted for hx of weakness with elevated depakote level, and seizure disorder hx, per HPI, no witnessed seizure in the past 13 years -PT/OT -Behavioral disturbances noted in HPI, he currently has not been walking, calm, lethargic, monitor for need for 1:1 at bedside -Epic reviewed and last tox screen was positive for benzodiazepines appropriately, PDMP reviewed as well. Order urine drug screen for completeness. -TSH 1.315 - Check B12 and folic acid -Noted that during his last visit to PCP in mid September his Seroquel and Remeron were increased 10/25 Neurology consulted: Recommending Depakote 100 mg twice a day (6) Weight loss: Plan: Moderate protein-calorie malnutrition per admitting service notes with addendum: -Concern for weight loss of greater than 20 pounds unintentionally in the past few months - on outpt review mother was concerned about 17 lbs down since July despite 2 boost and 1 benecalorie daily, on average is consuming 2500 to 3000 kenny daily. Allow pureed and pudding thick liquids. Aspiration precautions. -Check CT the chest, abdomen pelvis to eval for underlying malignancy, consider a Ca1 29 level -NSS x 1 bag s/p contrast with CTs - Recent colonoscopy in August 2021 but had poor prep and has been rescheduled, it was done due to high risk colon cancer surveillance, and personal hx of tubular adenoma found on colonoscopy in May 2015 -PSA was 0.44 on 09/24/21 -Dietitian consulted for nutritional status, continue boost supplementation 3 times daily as he uses protein supplements 3 times daily as outpatient -PT/OT consults -Albumin level is adequate at 4.0, consider sarcopenia if albumin level drops does not currently meet those qualifications 10/23 CT chest and abdomen: 1. Limited exam as above. 2. Bibasilar predominant consolidative opacities are suggestive of pneumonia versus aspiration pneumonitis. 3. Bronchial wall thickening suggestive of bronchitis or reactive airway disease with mild bibasilar mucous plugging. 1. No evidence for malignancy within the abdomen or pelvis. Exam compromised given motion artifact and paucity of intra-abdominal fat. 2. 3.2 x 1.4 cm rim-enhancing intramuscular fluid collection within the left gluteus refugio with overlying infiltration and suspected skin thickening with cellulitis. This collection favors an intramuscular abscess. This finding will be called/faxed to ordering provider at time of dictation. 3. Moderate to large amount of stool within the colon and rectum. No bowel obstruction. 4. Bilateral nephrolithiasis. no evidence of malignancy per current imagings Injection Molding Machine Tender consulted, recommending boost 3 times daily General surgery consulted for possible buttock abscess CT finding felt to be hematoma no drainage recommended monitor History of DVT On Eliquis DVT PPx: - teds, scds, Eliquis twice daily CODE: Full code Dispo: Anticipate return to [facility] when medically stable Admission and Anticipated Discharge Date Admission Date: October 22, 2021 Subjective Follow-up for acute hypoxic respiratory failure, etc. Seen at bedside, sitting up, on 3 L of oxygen via nasal cannula, not in distress, awake and alert No sensory muscle use noted, no respiratory distress signs No signs of pain Notified by RN, regarding patient's desaturation to low 80s on nasal cannula and oxygen mask Ordered stat chest x-ray, will place patient on high flow O2 Seen at the bedside, not in distress, mild accessory muscle use Stat chest x-ray revealing complete opacification left lung, possible mucous plug Discussed with learning and development analyst, discussed with private duty rn, transfer to ICU for possible bronchoscopy Called patient's mother, updated, she is agreeable and understanding of plan Review of Systems Review of Systems: all noted and negative except for above Physical Exam Physical Exam: General-not in distress, mild accessory muscle use Eyes- anicteric Neck- no JVD Lungs-decreased breath sound left side Mild crackles at the right base No wheezing Heart- normal rate, regular rhythm; no murmurs Abdomen- normal bowel sounds, nondistended, soft, nontender Extremities- no pretibial edema, no calf tenderness Neuro-nonverbal, no new gross focal neurologic deficits Skin- warm & dry Results & Data Results & Data ([facility]) Vital Signs (Past 12 Hours) Vital Signs Temp Pulse Pulse Pulse Resp BP BP 10/25/21 14:30 101 H 18 108/72 10/25/21 14:15 101 H 18 109/66 10/25/21 14:00 100 H 18 102/67 10/25/21 13:45 101 H 19 100/66 10/25/21 13:32 99 H 19 89/60 L 10/25/21 13:30 98 H 18 89/61 L 10/25/21 13:27 99 H 18 83/55 L 10/25/21 13:25 101 H 18 79/53 L 10/25/21 13:22 103 H 18 97/76 L 10/25/21 13:20 104 H 23 117/71 10/25/21 13:15 107 H 19 144/94 H 10/25/21 13:12 109 H 23 128/81 10/25/21 13:10 107 H 24 104/70 10/25/21 13:07 112 H 33 H 99/68 L 10/25/21 13:05 115 H 29 H 99/62 L 10/25/21 13:00 115 H 36 H 91/67 L 10/25/21 12:50 117 H 33 H 87/67 L 10/25/21 13:11 10/25/21 12:45 37.1 C 10/25/21 12:40 143 H 22 91/73 L 10/25/21 12:30 114 H 29 H 97/58 L 10/25/21 12:20 106 H 29 H 88/62 L 10/25/21 12:12 109 H 30 H 91/66 L 10/25/21 12:10 117 H 28 H 95/61 L 10/25/21 11:55 107 H 31 H 95/72 L 10/25/21 11:50 104 H 35 H 86/64 L 10/25/21 11:58 106 H 28 H 10/25/21 11:29 37.1 C 103 H 25 H 98/64 L 10/25/21 07:00 91 H 10/25/21 07:15 10/25/21 07:00 36.5 C 90 18 120/68 10/25/21 07:10 91 H 18 Pulse Ox O2 Del Method O2 Flow Rate FiO2 10/25/21 14:30 100 Mechanical Vent 70 10/25/21 14:15 97 Mechanical Vent 70 10/25/21 14:00 96 Mechanical Vent 70 10/25/21 13:45 98 Mechanical Vent 70 10/25/21 13:32 98 Mechanical Vent 60 10/25/21 13:30 100 Mechanical Vent 60 10/25/21 13:27 100 Mechanical Vent 60 10/25/21 13:25 100 Mechanical Vent 60 10/25/21 13:22 98 Mechanical Vent 60 10/25/21 13:20 95 Mechanical Vent 100 10/25/21 13:15 90 Mechanical Vent 100 10/25/21 13:12 97 High Flow Nasal Cannula 60 100 10/25/21 13:10 98 High Flow Nasal Cannula 60 100 10/25/21 13:07 96 High Flow Nasal Cannula 60 100 10/25/21 13:05 95 High Flow Nasal Cannula 60 100 10/25/21 13:00 96 High Flow Nasal Cannula 60 100 10/25/21 12:50 89 L High Flow Nasal Cannula 60 100 10/25/21 13:11 10/25/21 12:45 10/25/21 12:40 89 L High Flow Nasal Cannula 60 100 10/25/21 12:30 84 L High Flow Nasal Cannula 60 100 10/25/21 12:20 94 High Flow Nasal Cannula 60 100 10/25/21 12:12 87 L High Flow Nasal Cannula 60 100 10/25/21 12:10 82 L High Flow Nasal Cannula 60 100 10/25/21 11:55 90 High Flow Nasal Cannula 60 10/25/21 11:50 81 L 10/25/21 11:58 90 High Flow Nasal Cannula 60 100 10/25/21 11:29 84 L Oxymask, High Flow Nasal Cannula 30 10/25/21 07:00 10/25/21 07:15 Nasal Cannula 3 10/25/21 07:00 98 Nasal Cannula 2 10/25/21 07:10 93 Room Air all noted and reviewed including below (1) Valproic acid toxicity Encounter type: initial encounter Injury intent: accidental or unintentional Qualified Code(s): T42.6X1A - Poisoning by other antiepileptic and sedative- hypnotic drugs, accidental (unintentional), initial encounter
--- NOTE | 2021-10-25 15:29 | Critical Care Consultation ---
Date of Consultation October 25, 2021 Assessment & Plan (1) Mucoid impaction of bronchi: Reason Critically Ill: 56-year-old developmentally delayed male with acute hypoxic respiratory failure PLAN: Neuro: Reported seizure disorder: Records note no witnessed seizure in last 13 years -Valproic acid toxicity -Management per primary service -Clonazepam 0.5 mg every morning and temazepam increased from 15 to 30 mg at bedtime -Holding valproic acid Ataxia: Left buttock hematoma -Reviewed general surgery consult Resp: Mucoid impaction of left lung -Status post bronchoscopy -Mucolytic instilled during bronchoscopy Acute hypoxic respiratory failure - Vest 4 times daily, hypertonic saline twice daily, Brovana twice daily, nebulized budesonide twice daily. Fluids/Renal: Hold additional fluids at this time -If unable to take p.o. by 10/26 would consider starting maintenance fluids ID: Febrile illness: Last fever 10/24 Cefepime 2 g every 8 hours day 2 Doxycycline 100 mg twice daily: Day 2 Flagyl 500 mg 3 times daily: Day 2 -Blood cultures no growth at 48 hours -De-escalate to Rocephin and doxycycline for presumptive pulmonary pathogens -Continue antibiotics until results from bronchoscopy obtained -[employer] PCR ordered -Surgery doubts findings in glutes represents abscess -Discontinue Flagyl GI/Nutrition: Weight loss -Reviewed dietary consult -N.p.o. until greater than 6 hours from extubation Heme: H&P indicate history of DVT Systemic anticoagulation -On apixaban DVT prophylaxis: Apixaban Endocrine: ICU hyperglycemia protocol Vascular access: Peripheral IV Code Status: Full code Disposition: ICU (2) Acute respiratory failure with hypoxia: (3) Atelectasis, right: (4) Aspiration pneumonitis: (5) Atelectasis of left lung: History of Present Illness Reason for Consultation: Acute hypoxic respiratory failure Requesting Physician: Kobe Thayer MD Attending Physician: Kobe Thayer MD History of Present Illness Patient is a 56-year-old developmentally delayed male who I was contacted for acute hypoxic respiratory failure. His chest x-ray was noted to have significant mucoid impaction he was on high flow nasal cannula and satting in the high 80s. He was transferred to the ICU for probable intubation and bronchoscopy to relieve the mucoid impaction. Allergies Allergy/AdvReac Type Severity Reaction Status Date / Time amoxicillin Allergy Mild unknown Verified 12/26/18 10:05 haloperidol Allergy Mild unknown Verified 12/26/18 10:05 lithium Allergy Unknown Unverified 12/26/18 10:05 Penicillins Allergy Unknown Verified 10/22/21 23:04 valproic acid Allergy Unknown Verified 10/22/21 23:04 Home Medications Medication Instructions Recorded Confirmed Type ascorbic acid (vitamin C) 500 mg 500 mg PO BID@08,20 12/26/18 10/22/21 History tablet (Vitamin C) bromocriptine 2.5 mg tablet 2.5 mg PO DAILY@08,17 12/26/18 10/22/21 History (Parlodel) cholecalciferol (vitamin D3) 25 1,000 unit PO BID@,12/26/18 10/22/21 History mcg (1,000 unit) chewable tablet (Vitamin D3) divalproex 250 mg tablet,delayed 250 mg PO DAILY@1600 12/26/18 10/22/21 History release divalproex 500 mg tablet,extended 1,000 mg PO BID@08,12/26/18 10/22/21 History release 24 hr (Depakote ER) folic acid 1 mg tablet 1 mg PO DAILY@08 12/26/18 10/22/21 History multivitamin 1 tab PO DAILY@08 12/26/18 10/22/21 History apixaban 2.5 mg tablet (Eliquis) 2.5 mg PO BID 10/22/21 10/22/21 History clonazepam 0.5 mg tablet 0.5 mg PO QAM 10/22/21 10/22/21 History omeprazole 10 mg capsule,delayed 10 mg PO DAILY 10/22/21 10/22/21 History release quetiapine 300 mg tablet (Seroquel) 150 mg PO HS 10/22/21 10/22/21 History temazepam 30 mg capsule (Restoril) 30 mg PO HS 10/22/21 10/22/21 History Patient History Medical History Aspiration pneumonitis Atelectasis, right Bipolar disease, chronic Intellectual disability Intermittent explosive Surgical History Hx of colonoscopy Family History Father Cancer Heart disease Mother Cancer Hypertension Other Family history non-contributory Social History Smoking Status: Unknown if ever smoked Second Hand Exposure: No; Hx Alcohol Use: No Hx Substance Use: No Preferred Language: Kyrgyz Communication Ability: Impaired Security Door Installer Required: No Beliefs That Will Affect Care: None marital status: Single Current Living Situation: [facility] Current Living Situation Comment: pt lives in a longterm Feels Safe at Home: Yes Assistive Devices: Walker Physical Exam Physical Exam: General: Alert. Skin: Warm, dry, Head: Atraumatic Ears, nose, mouth and throat: airway patent Cardiovascular: Normal peripheral perfusion, mild tachycardia noted on bedside monitor Respiratory: Moderate tachypnea, high flow nasal cannula in place Gastrointestinal: Non distended Musculoskeletal: No deformity Results & Data Results & Data ([facility]) Vital Signs (Past 12 Hours) Vital Signs Temp Pulse Pulse Pulse Resp BP BP 10/25/21 14:30 101 H 18 108/72 10/25/21 14:15 101 H 18 109/66 10/25/21 14:00 100 H 18 102/67 10/25/21 13:45 101 H 19 100/66 10/25/21 13:32 99 H 19 89/60 L 10/25/21 13:30 98 H 18 89/61 L 10/25/21 13:27 99 H 18 83/55 L 10/25/21 13:25 101 H 18 79/53 L 10/25/21 13:22 103 H 18 97/76 L 10/25/21 13:20 104 H 23 117/71 10/25/21 13:15 107 H 19 144/94 H 10/25/21 13:12 109 H 23 128/81 10/25/21 13:10 107 H 24 104/70 10/25/21 13:07 112 H 33 H 99/68 L 10/25/21 13:05 115 H 29 H 99/62 L 10/25/21 13:00 115 H 36 H 91/67 L 10/25/21 12:50 117 H 33 H 87/67 L 10/25/21 13:11 10/25/21 12:45 37.1 C 10/25/21 12:40 143 H 22 91/73 L 10/25/21 12:30 114 H 29 H 97/58 L 10/25/21 12:20 106 H 29 H 88/62 L 10/25/21 12:12 109 H 30 H 91/66 L 10/25/21 12:10 117 H 28 H 95/61 L 10/25/21 11:55 107 H 31 H 95/72 L 10/25/21 11:50 104 H 35 H 86/64 L 10/25/21 11:58 106 H 28 H 10/25/21 11:29 37.1 C 103 H 25 H 98/64 L 10/25/21 07:00 91 H 10/25/21 07:15 10/25/21 07:00 36.5 C 90 18 120/68 10/25/21 07:10 91 H 18 Pulse Ox O2 Del Method O2 Flow Rate FiO2 10/25/21 14:30 100 Mechanical Vent 70 10/25/21 14:15 97 Mechanical Vent 70 10/25/21 14:00 96 Mechanical Vent 70 10/25/21 13:45 98 Mechanical Vent 70 10/25/21 13:32 98 Mechanical Vent 60 10/25/21 13:30 100 Mechanical Vent 60 10/25/21 13:27 100 Mechanical Vent 60 10/25/21 13:25 100 Mechanical Vent 60 10/25/21 13:22 98 Mechanical Vent 60 10/25/21 13:20 95 Mechanical Vent 100 10/25/21 13:15 90 Mechanical Vent 100 10/25/21 13:12 97 High Flow Nasal Cannula 60 100 10/25/21 13:10 98 High Flow Nasal Cannula 60 100 10/25/21 13:07 96 High Flow Nasal Cannula 60 100 10/25/21 13:05 95 High Flow Nasal Cannula 60 100 10/25/21 13:00 96 High Flow Nasal Cannula 60 100 10/25/21 12:50 89 L High Flow Nasal Cannula 60 100 10/25/21 13:11 100 10/25/21 12:45 10/25/21 12:40 89 L High Flow Nasal Cannula 60 100 10/25/21 12:30 84 L High Flow Nasal Cannula 60 100 10/25/21 12:20 94 High Flow Nasal Cannula 60 100 10/25/21 12:12 87 L High Flow Nasal Cannula 60 100 10/25/21 12:10 82 L High Flow Nasal Cannula 60 100 10/25/21 11:55 90 High Flow Nasal Cannula 60 100 10/25/21 11:50 81 L 10/25/21 11:58 90 High Flow Nasal Cannula 60 100 10/25/21 11:29 84 L Oxymask, High Flow Nasal Cannula 30 10/25/21 07:00 10/25/21 07:15 Nasal Cannula 3 10/25/21 07:00 98 Nasal Cannula 2 10/25/21 07:10 93 Room Air Critical Care Results & Data Vital Signs (Past 12 Hours) Vital Signs Temp Pulse Pulse Pulse Resp BP BP 10/25/21 14:30 101 H 18 108/72 10/25/21 14:15 101 H 18 109/66 10/25/21 14:00 100 H 18 102/67 10/25/21 13:45 101 H 19 100/66 10/25/21 13:32 99 H 19 89/60 L 10/25/21 13:30 98 H 18 89/61 L 10/25/21 13:27 99 H 18 83/55 L 10/25/21 13:25 101 H 18 79/53 L 10/25/21 13:22 103 H 18 97/76 L 10/25/21 13:20 104 H 23 117/71 10/25/21 13:15 107 H 19 144/94 H 10/25/21 13:12 109 H 23 128/81 10/25/21 13:10 107 H 24 104/70 10/25/21 13:07 112 H 33 H 99/68 L 10/25/21 13:05 115 H 29 H 99/62 L 10/25/21 13:00 115 H 36 H 91/67 L 10/25/21 12:50 117 H 33 H 87/67 L 10/25/21 13:11 10/25/21 12:45 37.1 C 10/25/21 12:40 143 H 22 91/73 L 10/25/21 12:30 114 H 29 H 97/58 L 10/25/21 12:20 106 H 29 H 88/62 L 10/25/21 12:12 109 H 30 H 91/66 L 10/25/21 12:10 117 H 28 H 95/61 L 10/25/21 11:55 107 H 31 H 95/72 L 10/25/21 11:50 104 H 35 H 86/64 L 10/25/21 11:58 106 H 28 H 10/25/21 11:29 37.1 C 103 H 25 H 98/64 L 10/25/21 07:00 91 H 10/25/21 07:15 10/25/21 07:00 36.5 C 90 18 120/68 10/25/21 07:10 91 H 18 Pulse Ox O2 Del Method O2 Flow Rate FiO2 10/25/21 14:30 100 Mechanical Vent 70 10/25/21 14:15 97 Mechanical Vent 70 10/25/21 14:00 96 Mechanical Vent 70 10/25/21 13:45 98 Mechanical Vent 70 10/25/21 13:32 98 Mechanical Vent 60 10/25/21 13:30 100 Mechanical Vent 60 10/25/21 13:27 100 Mechanical Vent 60 10/25/21 13:25 100 Mechanical Vent 60 10/25/21 13:22 98 Mechanical Vent 60 10/25/21 13:20 95 Mechanical Vent 100 10/25/21 13:15 90 Mechanical Vent 100 10/25/21 13:12 97 High Flow Nasal Cannula 60 100 10/25/21 13:10 98 High Flow Nasal Cannula 60 100 10/25/21 13:07 96 High Flow Nasal Cannula 60 100 10/25/21 13:05 95 High Flow Nasal Cannula 60 100 10/25/21 13:00 96 High Flow Nasal Cannula 60 100 10/25/21 12:50 89 L High Flow Nasal Cannula 60 100 10/25/21 13:11 100 10/25/21 12:45 10/25/21 12:40 89 L High Flow Nasal Cannula 60 100 10/25/21 12:30 84 L High Flow Nasal Cannula 60 100 10/25/21 12:20 94 High Flow Nasal Cannula 60 100 10/25/21 12:12 87 L High Flow Nasal Cannula 60 100 10/25/21 12:10 82 L High Flow Nasal Cannula 60 100 10/25/21 11:55 90 High Flow Nasal Cannula 60 100 10/25/21 11:50 81 L 10/25/21 11:58 90 High Flow Nasal Cannula 60 100 10/25/21 11:29 84 L Oxymask, High Flow Nasal Cannula 30 10/25/21 07:00 10/25/21 07:15 Nasal Cannula 3 10/25/21 07:00 98 Nasal Cannula 2 10/25/21 07:10 93 Room Air Lab & Micro Results (Past 24 Hours) RBC 3.67 M/uL (4.63-6.08) L 10/25/21 WBC 5.82 K/ul (4.8-10.8) 10/25/21 Hgb 11.4 g/dl (14.0-18.0) L 10/25/21 Hct 35.0 % (40.1-51.0) L 10/25/21 MCV 95.4 fL (80.0-100.0) 10/25/21 MCH 31.1 pg (25.0-34.0) 10/25/21 MCHC 32.6 g/dL (32.0-36.0) 10/25/21 RDW Standard Deviation 53.1 fL (36.4-46.3) H 10/25/21 RDW Coefficient of Variation 15.0 % (11.5-14.5) H 10/25/21 Plt Count 108 K/uL (130-400) L 10/25/21 MPV 12.2 fL (9.4-12.4) 10/25/21 Neutrophils (%) (Auto) 63.7 % 10/25/21 Lymphocytes (%) (Auto) 26.6 % 10/25/21 Monocytes # (Auto) 0.48 K/uL (0.24-0.82) 10/25/21 Eosinophils # (Auto) 0.05 K/uL (0-0.50) 10/25/21 Immature Granulocyte % (Auto) 0.3 % 10/25/21 Neutrophils # (Auto) 3.70 K/uL (1.4-6.5) 10/25/21 Lymphocytes # (Auto) 1.55 K/uL (1.2-3.4) 10/25/21 Monocytes # (Auto) 0.48 K/uL (0.24-0.82) 10/25/21 Eosinophils # (Auto) 0.05 K/uL (0-0.50) 10/25/21 Basophils # (Auto) 0.02 K/uL (0-0.2) 10/25/21 Immature Granulocyte # (Auto) 0.02 K/uL (0.00-0.02) 2 Na 138 mmol/L (136-145) 10/25/21 K 4.5 mmol/L (3.5-5.1) 10/25/21 Cl 103 mmol/L (98-107) 10/25/21 CO2 30 mmol/L (21-32) 10/25/21 Anion Gap 5 (3-11) 10/25/21 BUN 29 mg/dl (6-23) H 10/25/21 Creatinine 0.65 mg/dl (0.6-1.4) 10/25/21 Estimated GFR ( Amer) 125.2 ml/min 10/25/21 Estimated GFR (Non-Af Amer) 108.0 ml/min 10/25/21 BUN/Creatinine Ratio 44.6 (10-20) H 10/25/21 Glu 91 mg/dl (70-99(Fasting)) 10/25/21 Ca 9.2 mg/dl (8.5-10.1) 10/25/21 Mg 1.8 mg/dl (1.7-2.4) 10/25/21 05:30 Calcium Level 9.2 mg/dl (8.5-10.1) 10/25/21 05:30 Microbiology 10/22/21 12:36 Aerobic Blood Culture - Preliminary Blood No growth in Aerobic bottle after 48 hours. Anaerobic Blood Culture - Final 10/22/21 11:49 Aerobic Blood Culture - Preliminary Blood No growth in Aerobic bottle after 48 hours. Anaerobic Blood Culture - Preliminary No growth in Anaerobic bottle after 48 hours. Diagnostic Findings (Past 24 Hours) Chest X-Ray 10/25/21 11:16 XR chest 1V portable CLINICAL HISTORY: acute hypoxia COMPARISON STUDY: Chest CT October 22, 2021. Chest radiograph October 24, 2021. FINDINGS: There has been interval development of left lung opacification with volume loss. Elevation of the left hemidiaphragm with leftward mediastinal shift is noted. Right lower lung opacity has improved. There is no pneumothorax. No definite pleural effusion. IMPRESSION: 1. Interval development of complete opacification of the left lung with volume loss. This suggests left lung atelectasis, likely due to a mucous plug. This finding will be called/faxed to the ordering provider at time of dictation. Old deformity of the proximal right humerus is incidentally noted. 2. Improvement in right lower lung airspace opacity. ACT 112: Negative or not required by law. Electronically signed by: Milan Torrez M.D. 10/25/2021 11:28 AM Chest X-Ray 10/25/21 13:37 XR chest 1V portable CLINICAL HISTORY: s/p bronch COMPARISON STUDY: Chest radiograph performed earlier today. FINDINGS: Tip of endotracheal tube 1.2 cm above the meghana. Left lung aeration has significantly improved. Persistent left lung airspace opacities with volume loss are noted. No abnormalities within the right lung are identified. Cardiac size is normal. No pneumothorax or pleural effusion is identified. IMPRESSION: 1. Tip of endotracheal tube 1.2 cm above the meghana. 2. Interval improvement in left lung aeration. No pneumothorax. ACT 112: Negative or not required by law. Electronically signed by: Milan Torrez M.D. 10/25/2021 2:01 PM I & O Totals 24 Hours 10/24/21 10/25/21 10/26/21 06:59 06:59 06:59 Intake Total 2183.333 / 2183.333 993 / 993 1015.752 / 1015.752 Output Total 1400 / 1400 1050 / 1050 Balance 783.333 / 783.333 -57 / -57 1015.752 / 1015.752 Cumulative 10/22/21 10:15 thru 10/25/21 14:45 Intake Total 5242.085 Output Total 3100 Balance 2142.085 RT Ventilator Mngmt (Last Documented) Ventilator Ordered Settings Ventilator Support Mode Assist Control 10/25/21 13:11 Respiratory Rate 18 10/25/21 14:30 Ventilator Tidal Volume 400 10/25/21 13:11 Setting Positive End Expiratory 5 10/25/21 13:11 Pressure Fraction of Inspired Oxygen 70 10/25/21 14:30 Ventilator - PT Measurements Respiratory Rate 18 End-Tidal CO2 33 Coding Level of Care Code Critical Care 1st 30-74 mins Diagnoses Mucoid impaction of bronchi T17.500A Acute respiratory failure with hypoxia J96.01 Atelectasis, right J98.11 Aspiration pneumonitis J69.0 Atelectasis of left lung J98.11 Time Spent (min) 45
--- NOTE | 2021-10-25 15:34 | Procedure Note ---
Procedure Note Date of Service October 25, 2021 Note Procedure date: Noted above Procedure: fiberoptic bronchoscopy Pre-procedure indication: Acute hypoxic respiratory failure Post-procedure Diagnosis: same as above Prior to Procedure: Informed Consent: Emergent consent implied with desaturation into the high 80s Attending Staff: Lenny Ross DO Resident/APC: Not applicable Skin Prep: Not applicable Anesthesia: Continuous infusion The identity of the patient was confirmed and a bedside time out was performed. Description of Procedure: Fiberoptic bronchoscopy was performed via endotracheal tube. Bronchioalveolar lavage left upper lobe was performed. Findings included: Thick anticipated secretions in the left anterior airways. 7 mL of Mucomyst was instilled into the left airways right airways largely unremarkable Complications: None Specimens: Bronchial washings sent for culture and Gram stain, fungal elements, AFB stain and culture, cell count differential Estimated blood loss: Zero Coding CPT Codes Pulmonary/Thoracic - Pulmonary and Thoracic: 40077 Dx bronchoscopy/BAL ([id number]) [facility] Procedure Codes (Charges) Pulmonary/Thoracic Procedure 1: Pulmonary and Thoracic: 92763 Dx bronchoscopy/BAL
[2021-10-25] MEDS ORDERED: ACETYLCYSTEINE 20% INHAL SOLN 30ML INH ONE (16:16)
[2021-10-25] MEDS: cefTRIAXone SODIUM 1,000 MG in DEXTROSE 5% 50 ML IV SCH (16:23)
[2021-10-25 16:35] LABS: Adenovirus PCR Not Detected (NotDetected); Bordetella parapertussis PCR Not Detected (NotDetected); Bordetella pertussis PCR Not Detected (NotDetected); Chlamydia pneumoniae PCR Not Detected (NotDetected); Coronavirus 229E PCR Not Detected (NotDetected); Coronavirus CoV-2 (COVID19)PCR Not Detected (NotDetected); Coronavirus HKU1 PCR Not Detected (NotDetected); Coronavirus NL63 PCR Not Detected (NotDetected); Coronavirus OC43PCR Not Detected (NotDetected); Human Metapneumovirus PCR Not Detected (NotDetected); Influenza A PCR Not Detected (NotDetected); Influenza B PCR Not Detected (NotDetected); Mycoplasma pneumoniae PCR Not Detected (NotDetected); Parainfluenza Virus 1 PCR Not Detected (NotDetected); Parainfluenza Virus 2 PCR Not Detected (NotDetected); Parainfluenza Virus 3 PCR Not Detected (NotDetected); Parainfluenza Virus 4 PCR Not Detected (NotDetected); Respiratory Syncytial VirusPCR Not Detected (NotDetected); Rhinovirus/Enterovirus PCR Not Detected (NotDetected)
[2021-10-25] MEDS: QUEtiapine FUMARATE 25 MG TABLET PO SCH (20:03)
[2021-10-25] MEDS: TEMAZEPAM 15 MG CAPSULE PO SCH (20:05)
[2021-10-26 05:41] LABS: Basophils # (auto) 0.02 K/uL (0-0.2); Basophils % (auto) 0.2 %; Eosinophils # (auto) 0.03 K/uL (0-0.50); Eosinophils % (auto) 0.3 %; Hematocrit (blood only) 32.7 % (40.1-51.0); Hemoglobin 10.5 g/dl (14.0-18.0); Immature Granulocytes # (auto) 0.04 K/uL (0.00-0.02); Immature Granulocytes % (auto) 0.4 %; Lymphocytes # (auto) 1.63 K/uL (1.2-3.4); Lymphocytes % (auto) 17.1 %; Mean Corpuscular Hemoglobin 31.3 pg (25.0-34.0); Mean Corpuscular Hgb Conc 32.1 g/dL (32.0-36.0); Mean Corpuscular Volume 97.6 fL (80.0-100.0); Mean Platelet Volume 12.1 fL (9.4-12.4); Monocytes % (auto) 8.4 %; Neutrophils # (auto) 7.03 K/uL (1.4-6.5); Neutrophils % (auto) 73.6 %; Platelet Count 106 K/uL (130-400); RDW Coefficient of Variation 14.8 % (11.5-14.5); RDW Standard Deviation 53.3 fL (36.4-46.3); Red Blood Count 3.35 M/uL (4.63-6.08); White Blood Count 9.55 K/ul (4.8-10.8)
[2021-10-26 05:59] LABS: BUN Creatinine Ratio 33.9 (10-20); Calcium 9.2 mg/dl (8.5-10.1); Creatinine Clr Calc Pharmacy 118.8 ml/min; Est GFR (African American) 133.1 ml/min; Est GFR (Non-African American) 114.8 ml/min; Potassium 4.4 mmol/L (3.5-5.1)
--- NOTE | 2021-10-26 06:12 | Critical Care Progress Note ---
Date of Service October 26, 2021 Assessment & Plan (1) Mucoid impaction of bronchi: Plan: Impression: 56-year-old developmentally delayed male with acute hypoxic respiratory failure PLAN: Neuro: Reported seizure disorder: Records note no witnessed seizure in last 13 years -Valproic acid toxicity -Management per primary service -Clonazepam 0.5 and temazepam increased from 15 to 30 mg at bedtime -Holding valproic acid Ataxia: Left buttock hematoma -Reviewed general surgery consult Resp: Mucoid impaction of left lung -Status post bronchoscopy -Mucolytic instilled during bronchoscopy Acute hypoxic respiratory failure -Extubated post bronchoscopy. Currently on 2 L nasal cannula - Vest 4 times daily, hypertonic saline twice daily, Brovana twice daily, nebulized budesonide twice daily. Fluids/Renal: Hold additional fluids at this time -Patient taking p.o. ID: Febrile illness: Last fever 10/24 Cefepime 2 g every 8 hours day 3 Doxycycline 100 mg twice daily: Day 3 Flagyl 500 mg 3 times daily: 2 days, discontinued -Blood cultures no growth at 48 hours -De-escalate to Rocephin and doxycycline for presumptive pulmonary pathogens -Continue antibiotics until results from bronchoscopy obtained -OMG PCR ordered -Surgery doubts findings in glutes represents abscess GI/Nutrition: Weight loss -Reviewed dietary consult -Advance diet Heme: H&P indicate history of DVT Systemic anticoagulation -On apixaban DVT prophylaxis: Apixaban Endocrine: ICU hyperglycemia protocol Vascular access: Peripheral IV Code Status: Full code Disposition: ICU (2) Acute respiratory failure with hypoxia: (3) Atelectasis, right: (4) Aspiration pneumonitis: (5) Atelectasis of left lung: Admission and Anticipated Discharge Date Admission Date: October 22, 2021 Supervising Physician Co-Signing Physician Notes I have personally evaluated and examined this patient. I agree with assessment and plan of David ELI. Patient stable for downgrade out of ICU. Subjective Patient extubated to nasal cannula yesterday afternoon post bronchoscopy with mucoid impaction removal. He remains hemodynamically stable and is currently weaned to 2 L nasal cannula. No acute events overnight. Okay to downgrade from ICU status at this time. Review of Systems Review of Systems: Unobtainable due to cognitive status Physical Exam Constitutional: WD/WN, vitals as above Eyes: PERRL, conjunctivae normal, anicteric sclerae ENMT: external ear and nose normal, oropharynx normal Neck: trachea midline, no thyromegaly Respiratory: normal respiratory effort, lungs clear to auscultation Cardiovascular: RRR, no murmur, no edema Heart Sounds: normal S1 and normal S2; no murmur Gastrointestinal (Abdomen): normal bowel sounds, soft, nontender, no hepatosplenomegaly Musculoskeletal: no cyanosis or clubbing, extremities motor strength 5/5 Skin: no rashes, warm and dry Neurologic: PERRLA, accommodation normal, no facial palsy. Nonverbal Psychiatric: Cognitive delay, calm Results & Data Results & Data ([facility]) Vital Signs (Past 12 Hours) Vital Signs Temp Pulse Pulse Resp BP Pulse Ox O2 Del Method 10/26/21 03:04 37.0 C 10/26/21 03:00 95 H 16 100 10/26/21 03:00 109/67 10/26/21 02:45 94 H 16 100 10/26/21 02:45 104/69 10/26/21 02:30 94 H 16 100 10/26/21 02:30 124/64 10/26/21 02:15 99/64 L 10/26/21 02:15 94 H 16 100 10/26/21 02:00 96 H 16 100 10/26/21 02:00 114/64 10/26/21 01:45 101/68 10/26/21 01:45 99 H 16 100 10/26/21 01:30 99 H 16 100 10/26/21 01:30 108/69 10/26/21 01:15 102/64 10/26/21 01:15 97 H 17 99 10/26/21 01:00 96 H 17 97 10/26/21 01:00 108/68 10/26/21 00:45 101/68 10/26/21 00:45 98 H 17 99 10/26/21 00:30 101 H 17 98 10/26/21 00:30 108/64 10/26/21 00:15 109/66 10/26/21 00:15 97 H 17 99 10/26/21 00:00 99 H 17 99 10/26/21 00:00 97/64 L 10/25/21 23:45 108/62 10/25/21 23:45 103 H 17 98 10/25/21 23:30 102 H 16 98 10/25/21 23:30 99/60 L 10/25/21 23:15 101 H 17 98 10/25/21 23:15 98/61 L 10/25/21 23:00 104 H 18 98 10/25/21 23:00 96/58 L 10/25/21 22:45 103 H 16 100 10/25/21 22:45 104/62 10/25/21 22:30 102 H 18 98 10/25/21 22:30 101/62 10/25/21 22:15 100/59 L 10/25/21 22:15 106 H 18 97 10/25/21 22:00 106 H 19 98 10/25/21 22:00 91/63 L 10/25/21 21:45 91/61 L 10/25/21 21:45 106 H 18 98 10/25/21 21:30 107 H 19 96 10/25/21 21:30 98/61 L 10/25/21 21:15 95/61 L 10/25/21 21:15 106 H 17 97 10/25/21 21:00 94/61 L 10/25/21 22:59 102 H 10/25/21 21:00 109 H 18 97 10/25/21 20:45 107 H 19 99 10/25/21 20:45 94/59 L 10/25/21 20:30 108 H 21 98 10/25/21 20:30 100/64 10/25/21 20:15 98/61 L 10/25/21 20:15 112 H 20 89 L 10/25/21 20:00 113 H 24 94 10/25/21 20:00 108/63 10/25/21 19:45 103/60 10/25/21 19:45 114 H 19 96 10/25/21 19:30 115 H 29 H 96 10/25/21 19:15 112 H 20 99 10/25/21 19:15 109/62 10/25/21 19:00 111 H 26 H 100 10/25/21 19:00 101/60 10/25/21 18:45 111 H 24 95 10/25/21 18:45 101/60 10/25/21 21:05 Nasal Cannula 10/25/21 20:56 37.0 C 10/25/21 19:25 116 H 18 91 Nasal Cannula 10/25/21 18:30 110 H 19 109/67 98 Nasal Cannula 10/25/21 18:15 110 H 21 105/65 97 Nasal Cannula 10/25/21 18:00 110 H 17 112/67 95 Nasal Cannula 10/25/21 17:45 110 H 24 106/61 96 Nasal Cannula, Mechanical Vent 10/25/21 17:30 113 H 19 98/68 L 92 Nasal Cannula O2 Flow Rate 10/26/21 03:04 10/26/21 03:00 10/26/21 03:00 10/26/21 02:45 10/26/21 02:45 10/26/21 02:30 10/26/21 02:30 10/26/21 02:15 10/26/21 02:15 10/26/21 02:00 10/26/21 02:00 10/26/21 01:45 10/26/21 01:45 10/26/21 01:30 10/26/21 01:30 10/26/21 01:15 10/26/21 01:15 10/26/21 01:00 10/26/21 01:00 10/26/21 00:45 10/26/21 00:45 10/26/21 00:30 10/26/21 00:30 10/26/21 00:15 10/26/21 00:15 10/26/21 00:00 10/26/21 00:00 10/25/21 23:45 10/25/21 23:45 10/25/21 23:30 10/25/21 23:30 10/25/21 23:15 10/25/21 23:15 10/25/21 23:00 10/25/21 23:00 10/25/21 22:45 10/25/21 22:45 10/25/21 22:30 10/25/21 22:30 10/25/21 22:15 10/25/21 22:15 10/25/21 22:00 10/25/21 22:00 10/25/21 21:45 10/25/21 21:45 10/25/21 21:30 10/25/21 21:30 10/25/21 21:15 10/25/21 21:15 10/25/21 21:00 10/25/21 22:59 10/25/21 21:00 10/25/21 20:45 10/25/21 20:45 10/25/21 20:30 10/25/21 20:30 10/25/21 20:15 10/25/21 20:15 10/25/21 20:00 10/25/21 20:00 10/25/21 19:45 10/25/21 19:45 10/25/21 19:30 10/25/21 19:15 10/25/21 19:15 10/25/21 19:00 10/25/21 19:00 10/25/21 18:45 10/25/21 18:45 10/25/21 21:05 2 10/25/21 20:56 10/25/21 19:25 4 10/25/21 18:30 4 10/25/21 18:15 4 10/25/21 18:00 4 10/25/21 17:45 4 10/25/21 17:30 4 Coding Level of Care Code 14070 Subseq Hosp Care Lvl 2 Diagnoses Mucoid impaction of bronchi T17.500A Acute respiratory failure with hypoxia J96.01 Atelectasis, right J98.11 Aspiration pneumonitis J69.0 Atelectasis of left lung J98.11
[2021-10-26] MEDS: FORMOTEROL 20 MCG/2 ML VIAL INH SCH ×2 (07:15→19:20)
[2021-10-26] MEDS: BUDESONIDE 0.25 MG/2 ML VIAL (PULMICORT) NEB SCH ×2 (07:16→19:20)
[2021-10-26] MEDS: SODIUM CHLOR 7% 4 ML NEB NEB SCH ×2 (07:16→19:20)
[2021-10-26] MEDS: CHOLECALCIFEROL 1,000 UNITS 25 MCG TAB PO SCH ×2 (08:09→20:04)
[2021-10-26] MEDS: BROMOCRIPTINE MESYLATE 2.5 MG TAB PO SCH ×2 (08:09→17:37)
[2021-10-26] MEDS: ASCORBIC ACID 500 MG TAB PO SCH ×2 (08:09→20:04)
[2021-10-26] MEDS: FOLIC ACID 1 MG TAB PO SCH (08:10)
[2021-10-26] MEDS: APIXABAN 2.5 MG TAB PO SCH ×2 (08:10→20:04)
[2021-10-26] MEDS: MULTIVITAMIN TAB PO SCH (08:10)
[2021-10-26] MEDS: clonazePAM 0.5 MG TAB PO SCH (08:11)
[2021-10-26] MEDS: DOXYCYCLINE HYCLATE 100 MG CAP PO SCH ×2 (08:12→20:05)
[2021-10-26] MEDS: ADVANCED PROBIOTIC 1250 MG CAPSULE PO SCH (08:12)
[2021-10-26] MEDS: DIVALPROEX DELAY RELEASE 500 MG TAB PO SCH ×2 (08:12→20:04)
[2021-10-26] MEDS: PANTOprazole 40 MG TAB PO SCH (08:13)
--- NOTE | 2021-10-26 09:44 | Procedure Note ---
Procedure Note Date of Service October 25, 2021 Note Procedure Date: Noted above Procedure: Endotracheal intubation Pre-procedure Diagnosis: Acute hypoxic respiratory failure Post-procedure Diagnosis: same as above Prior to Procedure: Informed Consent: emergent Attending Staff: Lenny Ross DO The identity of the patient was confirmed and a bedside time out was performed. Description of Procedure: Patient was evaluated and required intubation for impending respiratory failure. The patient was prepared in the usual fashion. A 3 video laryngoscope was used. A 8.5 mm inner diameter endotrachial tube was placed endotracheally to 22 cm at the gum ridge. A grade 1 view was obtained. The endotracheal tube was noted to pass through the vocal cords. Chest rise was bilateral. Bilateral breath sounds were heard without air sounds in the abdomen. Mist was noted in the endotracheal tube. End-tidal CO2 measurement was positive. Chest x-ray shows proper endotracheal tube placement. Complications: None Findings: Not applicable Specimens: Not applicable Estimated blood loss: Zero Coding CPT Codes Resuscitation - Resuscitation: 80462 Endotracheal Intubation, emergency ([id number]) [facility] [place] Procedure Codes (Charges) Resuscitation Resuscitation: 24308 Endotracheal Intubation, emergency
--- NOTE | 2021-10-26 13:58 | Hospitalist Progress Note ---
Date of Service October 26, 2021 Assessment & Plan (1) Acute respiratory failure with hypoxia: Plan: (1) Acute respiratory failure with hypoxia: Plan: Secondary to bilateral pneumonia Secondary to atelectasis desaturating this morning repeat CXR: 1. There is increasing consolidation at the right lung base, with volume loss in the right lung and rightward shift of the mediastinum. This likely represents significant atelectasis at the right lung base which may be lobar. This has significantly increased from yesterday. 2. Mild atelectasis is seen at the left lung base. Dapto + Cefepime IV started High flow o2 ordered Pulm consulted, added Performist and Budesonide nebs hypertonic saline nebs percussion vest 10/24 Patient showing significant medical improvement Now on room air Positive fever overnight, changed to meropenem Antibiotics de-escalated to cefepime plus Flagyl plus doxycycline Follow-up cultures Continue Perforomist and budesonide x2 more days, hypertonic saline nebs Speech therapy consulted, recommending pured, extremely thick solids and liquids 10/25 Patient noted to be desaturating again Stat chest x-ray: Complete left lung opacification, possible mucous plug Replaced on high flow O2 Transferred to ICU Discussed with Dr. Ross Continue cefepime plus Doxy, Flagyl 10/26 s/p Bronchoscopy removal of mucus plug extubated now on room air tolerating PO diet, meds continue Ceftriaxone, Doxycycline Urinary retention 600 cc, Alan catheter ordered Continue Alan catheter for now (2) Weakness: (3) Valproic acid toxicity: (4) Seizure disorder: (5) Bipolar disease, chronic: Plan: per admitting service notes with addendum: -Will hold valproic acid for now as appears that some of his symptoms may be related to toxicity with level going from the mid 90s to 121. Possible due to malabsorption with recent weight loss and medication dosing needing to be reduced, no recent medication dosing changes. -Medication changes include clonazepam 0.5 mg every morning to scheduled and temazepam increased to 15 to 30 mg at bedtime. -Neuro consulted for hx of weakness with elevated depakote level, and seizure disorder hx, per HPI, no witnessed seizure in the past 13 years -PT/OT -Behavioral disturbances noted in HPI, he currently has not been walking, calm, lethargic, monitor for need for 1:1 at bedside -[facility] reviewed and last tox screen was positive for benzodiazepines appropriately, PDMP reviewed as well. Order urine drug screen for completeness. -TSH 1.315 - Check B12 and folic acid -Noted that during his last visit to PCP in mid September his Seroquel and Remeron were increased 10/25 Neurology consulted: Recommending Depakote 100 mg twice a day (6) Weight loss: Plan: Moderate protein-calorie malnutrition per admitting service notes with addendum: -Concern for weight loss of greater than 20 pounds unintentionally in the past few months - on outpt review mother was concerned about 17 lbs down since July despite 2 boost and 1 benecalorie daily, on average is consuming 2500 to 3000 kenny daily. Allow pureed and pudding thick liquids. Aspiration precautions. -Check CT the chest, abdomen pelvis to eval for underlying malignancy, consider a Ca1 29 level -NSS x 1 bag s/p contrast with CTs - Recent colonoscopy in August 2021 but had poor prep and has been rescheduled, it was done due to high risk colon cancer surveillance, and personal hx of tubular adenoma found on colonoscopy in May 2015 -PSA was 0.44 on 09/24/21 -Dietitian consulted for nutritional status, continue boost supplementation 3 times daily as he uses protein supplements 3 times daily as outpatient -PT/OT consults -Albumin level is adequate at 4.0, consider sarcopenia if albumin level drops does not currently meet those qualifications 10/23 CT chest and abdomen: 1. Limited exam as above. 2. Bibasilar predominant consolidative opacities are suggestive of pneumonia versus aspiration pneumonitis. 3. Bronchial wall thickening suggestive of bronchitis or reactive airway disease with mild bibasilar mucous plugging. 1. No evidence for malignancy within the abdomen or pelvis. Exam compromised given motion artifact and paucity of intra-abdominal fat. 2. 3.2 x 1.4 cm rim-enhancing intramuscular fluid collection within the left gluteus refugio with overlying infiltration and suspected skin thickening with cellulitis. This collection favors an intramuscular abscess. This finding will be called/faxed to ordering provider at time of dictation. 3. Moderate to large amount of stool within the colon and rectum. No bowel obstruction. 4. Bilateral nephrolithiasis. no evidence of malignancy per current imagings Molecular Physicist consulted, recommending boost 3 times daily General surgery consulted for possible buttock abscess CT finding felt to be hematoma no drainage recommended monitor History of DVT On Eliquis DVT PPx: - teds, scds, Eliquis twice daily CODE: Full code Dispo: Anticipate return to long term when medically stable (2) Weakness: (3) Valproic acid toxicity: (4) Seizure disorder: (5) Bipolar disease, chronic: (6) Weight loss: Admission and Anticipated Discharge Date Admission Date: October 22, 2021 Subjective ff up for acute respiratory failure, etc seen resting in bed, comfortable sitting up on room air no signs of distress, pain able to tolerate diet, medications per RN no other symptoms Review of Systems Review of Systems: all noted and negative except for above Physical Exam Physical Exam: General-alert, non verbal, not in distress,breathing with no effort or accessory muscle use Eyes- anicteric Neck- no JVD Lungs- clear BS bilaterally, no rales/wheezes Heart- normal rate, regular rhythm; no murmurs Abdomen- normal bowel sounds, nondistended, soft, nontender Extremities- no pretibial edema, no calf tenderness Neuro- no new gross focal neurologic deficits Skin- warm & dry Results & Data Results & Data ([facility]) Vital Signs (Past 12 Hours) Vital Signs Temp Pulse Pulse Resp BP Pulse Ox O2 Del Method 10/26/21 12:00 91 H 13 107/68 95 Room Air 10/26/21 11:00 89 17 109/71 100 Room Air 10/26/21 10:00 84 18 109/69 99 Room Air 10/26/21 09:00 85 19 98/62 L 92 Room Air 10/26/21 08:30 88 14 98/61 L 93 Room Air 10/26/21 08:00 36.8 C 10/26/21 08:15 89 18 111/62 95 Room Air 10/26/21 08:00 78 15 111/64 94 Room Air 10/26/21 07:45 81 14 111/69 94 Room Air 10/26/21 07:30 81 12 105/63 100 Nasal Cannula 10/26/21 07:00 87 13 109/68 100 Nasal Cannula 10/26/21 06:45 89 14 108/64 100 Nasal Cannula 10/26/21 07:00 Nasal Cannula 10/26/21 07:16 87 18 100 Nasal Cannula 10/26/21 06:00 82 15 100 10/26/21 06:00 120/70 10/26/21 05:45 117/71 10/26/21 05:45 92 H 14 99 10/26/21 05:30 95/64 L 10/26/21 05:30 95 H 14 97 10/26/21 05:15 102/63 10/26/21 05:15 97 H 13 97 10/26/21 05:00 91 10/26/21 05:00 118/74 10/26/21 04:45 116/70 10/26/21 04:45 90 15 99 10/26/21 04:30 107/69 10/26/21 04:30 94 H 15 100 10/26/21 04:15 123/73 10/26/21 04:15 93 H 16 100 10/26/21 04:00 93 H 15 100 10/26/21 04:00 123/70 10/26/21 03:45 93 H 14 100 10/26/21 03:45 120/71 10/26/21 03:30 93 H 15 100 10/26/21 03:30 113/72 10/26/21 03:15 127/67 10/26/21 03:15 90 15 100 10/26/21 05:48 36.7 C 10/26/21 03:04 37.0 C 10/26/21 03:00 95 H 16 100 10/26/21 03:00 109/67 10/26/21 02:45 94 H 16 100 10/26/21 02:45 104/69 10/26/21 02:30 94 H 16 100 10/26/21 02:30 124/64 10/26/21 02:15 99/64 L 10/26/21 02:15 94 H 16 100 10/26/21 02:00 96 H 16 100 10/26/21 02:00 114/64 O2 Flow Rate 10/26/21 12:00 10/26/21 11:00 10/26/21 10:00 10/26/21 09:00 10/26/21 08:30 10/26/21 08:00 10/26/21 08:15 10/26/21 08:00 10/26/21 07:45 10/26/21 07:30 2 10/26/21 07:00 2 10/26/21 06:45 2 10/26/21 07:00 2 10/26/21 07:16 2 10/26/21 06:00 10/26/21 06:00 10/26/21 05:45 10/26/21 05:45 10/26/21 05:30 10/26/21 05:30 10/26/21 05:15 10/26/21 05:15 10/26/21 05:00 10/26/21 05:00 10/26/21 04:45 10/26/21 04:45 10/26/21 04:30 10/26/21 04:30 10/26/21 04:15 10/26/21 04:15 10/26/21 04:00 10/26/21 04:00 10/26/21 03:45 10/26/21 03:45 10/26/21 03:30 10/26/21 03:30 10/26/21 03:15 10/26/21 03:15 10/26/21 05:48 10/26/21 03:04 10/26/21 03:00 10/26/21 03:00 10/26/21 02:45 10/26/21 02:45 10/26/21 02:30 10/26/21 02:30 10/26/21 02:15 10/26/21 02:15 10/26/21 02:00 10/26/21 02:00 all noted and reviewed including below (1) Valproic acid toxicity Encounter type: initial encounter Injury intent: accidental or unintentional Qualified Code(s): T42.6X1A - Poisoning by other antiepileptic and sedative- hypnotic drugs, accidental (unintentional), initial encounter
[2021-10-26] MEDS: cefTRIAXone SODIUM 1,000 MG in DEXTROSE 5% 50 ML IV SCH (16:30)
[2021-10-26] MEDS: QUEtiapine FUMARATE 25 MG TABLET PO SCH (20:04)
[2021-10-26] MEDS: TEMAZEPAM 15 MG CAPSULE PO SCH (20:05)
[2021-10-27 07:01] LABS: BUN Creatinine Ratio 48.9 (10-20); Calcium 9.2 mg/dl (8.5-10.1); Creatinine Clr Calc Pharmacy 148.8 ml/min; Est GFR (African American) 145.6 ml/min; Est GFR (Non-African American) 125.6 ml/min; Potassium 4.3 mmol/L (3.5-5.1)
[2021-10-27 07:07] LABS: Hematocrit (blood only) 33.3 % (40.1-51.0); Hemoglobin 10.8 g/dl (14.0-18.0); Mean Corpuscular Hgb Conc 32.4 g/dL (32.0-36.0); Mean Corpuscular Volume 95.7 fL (80.0-100.0); Mean Platelet Volume 11.3 fL (9.4-12.4); Platelet Count 131 K/uL (130-400); RDW Coefficient of Variation 14.4 % (11.5-14.5); RDW Standard Deviation 50.4 fL (36.4-46.3); Red Blood Count 3.48 M/uL (4.63-6.08); White Blood Count 5.36 K/ul (4.8-10.8)
[2021-10-27 07:08] LABS: Basophils # (auto) 0.01 K/uL (0-0.2); Basophils % (auto) 0.2 %; Eosinophils # (auto) 0.11 K/uL (0-0.50); Eosinophils % (auto) 2.1 %; Immature Granulocytes # (auto) 0.02 K/uL (0.00-0.02); Immature Granulocytes % (auto) 0.4 %; Lymphocytes # (auto) 1.24 K/uL (1.2-3.4); Lymphocytes % (auto) 23.1 %; Monocytes # (auto) 0.54 K/uL (0.24-0.82); Monocytes % (auto) 10.1 %; Neutrophils # (auto) 3.44 K/uL (1.4-6.5); Neutrophils % (auto) 64.1 %
[2021-10-27] MEDS: SODIUM CHLOR 7% 4 ML NEB NEB SCH ×2 (07:13→19:16)
[2021-10-27] MEDS: FORMOTEROL 20 MCG/2 ML VIAL INH SCH ×2 (07:26→19:16)
[2021-10-27] MEDS: BUDESONIDE 0.25 MG/2 ML VIAL (PULMICORT) NEB SCH ×2 (07:26→19:16)
[2021-10-27] MEDS: ASCORBIC ACID 500 MG TAB PO SCH ×2 (08:13→20:59)
[2021-10-27] MEDS: BROMOCRIPTINE MESYLATE 2.5 MG TAB PO SCH ×2 (08:13→17:27)
[2021-10-27] MEDS: CHOLECALCIFEROL 1,000 UNITS 25 MCG TAB PO SCH ×2 (08:14→20:59)
[2021-10-27] MEDS: FOLIC ACID 1 MG TAB PO SCH (08:14)
[2021-10-27] MEDS: APIXABAN 2.5 MG TAB PO SCH ×2 (08:14→20:58)
[2021-10-27] MEDS: MULTIVITAMIN TAB PO SCH (08:14)
[2021-10-27] MEDS: clonazePAM 0.5 MG TAB PO SCH (08:14)
[2021-10-27] MEDS: DIVALPROEX DELAY RELEASE 500 MG TAB PO SCH ×2 (08:15→20:57)
[2021-10-27] MEDS: ADVANCED PROBIOTIC 1250 MG CAPSULE PO SCH (08:16)
[2021-10-27] MEDS: PANTOprazole 40 MG TAB PO SCH (08:16)
[2021-10-27] MEDS: DOXYCYCLINE HYCLATE 100 MG CAP PO SCH ×2 (10:14→20:59)
[2021-10-27] MEDS: cefTRIAXone SODIUM 1,000 MG in DEXTROSE 5% 50 ML IV SCH (16:00)
--- NOTE | 2021-10-27 16:42 | Hospitalist Progress Note ---
Date of Service October 27, 2021 Assessment & Plan (1) Acute respiratory failure with hypoxia: Plan: (1) Acute respiratory failure with hypoxia: Plan: Secondary to bilateral pneumonia Secondary to atelectasis desaturating this morning repeat CXR: 1. There is increasing consolidation at the right lung base, with volume loss in the right lung and rightward shift of the mediastinum. This likely represents significant atelectasis at the right lung base which may be lobar. This has significantly increased from yesterday. 2. Mild atelectasis is seen at the left lung base. Dapto + Cefepime IV started High flow o2 ordered Pulm consulted, added Performist and Budesonide nebs hypertonic saline nebs percussion vest 10/24 Patient showing significant medical improvement Now on room air Positive fever overnight, changed to meropenem Antibiotics de-escalated to cefepime plus Flagyl plus doxycycline Follow-up cultures Continue Perforomist and budesonide x2 more days, hypertonic saline nebs Speech therapy consulted, recommending pured, extremely thick solids and liquids 10/25 Patient noted to be desaturating again Stat chest x-ray: Complete left lung opacification, possible mucous plug Replaced on high flow O2 Transferred to ICU Discussed with Dr. Ross Continue cefepime plus Doxy, Flagyl 10/26 s/p Bronchoscopy removal of mucus plug extubated now on room air tolerating PO diet, meds continue Ceftriaxone, Doxycycline 10/27 [facility] cultures: Negative so far Remains on room air Tolerating p.o. diet and meds Continue ceftriaxone plus doxycycline Pulmicort plus Perforomist Monitor closely Urinary retention 600 cc, Alan catheter ordered Continue Alan catheter for now (2) Weakness: (3) Valproic acid toxicity: (4) Seizure disorder: (5) Bipolar disease, chronic: Plan: per admitting service notes with addendum: -Will hold valproic acid for now as appears that some of his symptoms may be related to toxicity with level going from the mid 90s to 121. Possible due to malabsorption with recent weight loss and medication dosing needing to be reduced, no recent medication dosing changes. -Medication changes include clonazepam 0.5 mg every morning to scheduled and temazepam increased to 15 to 30 mg at bedtime. -Neuro consulted for hx of weakness with elevated depakote level, and seizure disorder hx, per HPI, no witnessed seizure in the past 13 years -PT/OT -Behavioral disturbances noted in HPI, he currently has not been walking, calm, lethargic, monitor for need for 1:1 at bedside -Epic reviewed and last tox screen was positive for benzodiazepines appropriately, PDMP reviewed as well. Order urine drug screen for completeness. -TSH 1.315 - Check B12 and folic acid -Noted that during his last visit to PCP in mid September his Seroquel and Remeron were increased 10/26 Neurology consulted: Recommending Depakote 100 mg twice a day (6) Weight loss: Plan: Moderate protein-calorie malnutrition per admitting service notes with addendum: -Concern for weight loss of greater than 20 pounds unintentionally in the past few months - on outpt review mother was concerned about 17 lbs down since July despite 2 boost and 1 benecalorie daily, on average is consuming 2500 to 3000 kenny daily. Allow pureed and pudding thick liquids. Aspiration precautions. -Check CT the chest, abdomen pelvis to eval for underlying malignancy, consider a Ca1 29 level -NSS x 1 bag s/p contrast with CTs - Recent colonoscopy in August 2021 but had poor prep and has been rescheduled, it was done due to high risk colon cancer surveillance, and personal hx of tubular adenoma found on colonoscopy in May 2015 -PSA was 0.44 on 09/24/21 -Dietitian consulted for nutritional status, continue boost supplementation 3 times daily as he uses protein supplements 3 times daily as outpatient -PT/OT consults -Albumin level is adequate at 4.0, consider sarcopenia if albumin level drops does not currently meet those qualifications 10/23 CT chest and abdomen: 1. Limited exam as above. 2. Bibasilar predominant consolidative opacities are suggestive of pneumonia versus aspiration pneumonitis. 3. Bronchial wall thickening suggestive of bronchitis or reactive airway disease with mild bibasilar mucous plugging. 1. No evidence for malignancy within the abdomen or pelvis. Exam compromised given motion artifact and paucity of intra-abdominal fat. 2. 3.2 x 1.4 cm rim-enhancing intramuscular fluid collection within the left gluteus refugio with overlying infiltration and suspected skin thickening with cellulitis. This collection favors an intramuscular abscess. This finding will be called/faxed to ordering provider at time of dictation. 3. Moderate to large amount of stool within the colon and rectum. No bowel obstruction. 4. Bilateral nephrolithiasis. no evidence of malignancy per current imaging Picture Painter consulted, recommending boost 3 times daily General surgery consulted for possible buttock abscess CT finding felt to be hematoma no drainage recommended monitor History of DVT On Eliquis DVT PPx: - teds, scds, Eliquis twice daily CODE: Full code Dispo: Anticipate return to alf when medically stable (2) Weakness: (3) Valproic acid toxicity: (4) Seizure disorder: (5) Bipolar disease, chronic: (6) Weight loss: Admission and Anticipated Discharge Date Admission Date: October 22, 2021 Subjective Follow-up for hypoxic respiratory failure, etc. Resting bed, sleeping Not in distress Discussed with RN Patient was awake and alert Tolerating diet with no issues No other symptoms noted Review of Systems Review of Systems: all noted and negative except for above Physical Exam Physical Exam: General- oriented x 3, not in distress, speaks in sentences with no effort or accessory muscle use Eyes- anicteric Neck- no JVD Lungs- clear breath sounds bilaterally, no rales/wheezes Heart- normal rate, regular rhythm; no murmurs Abdomen- normal bowel sounds, nondistended, soft, nontender Extremities- no pretibial edema, no calf tenderness Neuro- alert, oriented x 3; no gross focal neurologic deficits Skin- warm & dry Results & Data Results & [facility] ([facility]) Vital Signs (Past 12 Hours) Vital Signs Temp Pulse Pulse Resp BP BP Pulse Ox 10/27/21 15:46 37.2 C 92 H 19 104/66 88 L 10/27/21 15:22 96 H 10/27/21 11:51 10/27/21 11:40 36.6 C 96 H 16 101/65 91 10/27/21 11:37 97 H 10/27/21 08:00 36.6 C 93 H 20 104/68 96 10/27/21 07:14 95 H 18 92 O2 Del Method 10/27/21 15:46 Room Air 10/27/21 15:22 10/27/21 11:51 Room Air 10/27/21 11:40 Room Air 10/27/21 11:37 10/27/21 08:00 Room Air 10/27/21 07:14 Room Air (1) Valproic acid toxicity Encounter type: initial encounter Injury intent: accidental or unintentional Qualified Code(s): T42.6X1A - Poisoning by other antiepileptic and sedative- hypnotic drugs, accidental (unintentional), initial encounter
[2021-10-27] MEDS: QUEtiapine FUMARATE 25 MG TABLET PO SCH (20:58)
[2021-10-27] MEDS: TEMAZEPAM 15 MG CAPSULE PO SCH (21:02)
[2021-10-28 06:58] LABS: Basophils # (auto) 0.02 K/uL (0-0.2); Basophils % (auto) 0.4 %; Hematocrit (blood only) 33.2 % (40.1-51.0); Hemoglobin 10.6 g/dl (14.0-18.0); Immature Granulocytes # (auto) 0.02 K/uL (0.00-0.02); Immature Granulocytes % (auto) 0.4 %; Lymphocytes # (auto) 1.37 K/uL (1.2-3.4); Lymphocytes % (auto) 28.1 %; Mean Corpuscular Hgb Conc 31.9 g/dL (32.0-36.0); Mean Corpuscular Volume 97.1 fL (80.0-100.0); Monocytes # (auto) 0.61 K/uL (0.24-0.82); Monocytes % (auto) 12.5 %; Neutrophils # (auto) 2.76 K/uL (1.4-6.5); Neutrophils % (auto) 56.6 %; Platelet Count 138 K/uL (130-400); RDW Coefficient of Variation 14.2 % (11.5-14.5); Red Blood Count 3.42 M/uL (4.63-6.08); White Blood Count 4.88 K/ul (4.8-10.8)
[2021-10-28] MEDS: BUDESONIDE 0.25 MG/2 ML VIAL (PULMICORT) NEB SCH ×2 (07:08→19:25)
[2021-10-28] MEDS: FORMOTEROL 20 MCG/2 ML VIAL INH SCH ×2 (07:08→19:25)
[2021-10-28] MEDS: SODIUM CHLOR 7% 4 ML NEB NEB SCH ×2 (07:08→19:25)
[2021-10-28 07:29] LABS: BUN Creatinine Ratio 50.9 (10-20); Calcium 9.1 mg/dl (8.5-10.1); Creatinine Clr Calc Pharmacy 123.2 ml/min; Est GFR (African American) 132.1 ml/min; Potassium 4.5 mmol/L (3.5-5.1)
[2021-10-28] MEDS: CHOLECALCIFEROL 1,000 UNITS 25 MCG TAB PO SCH ×2 (08:46→20:26)
[2021-10-28] MEDS: PANTOprazole 40 MG TAB PO SCH (08:46)
[2021-10-28] MEDS: APIXABAN 2.5 MG TAB PO SCH ×2 (08:46→20:27)
[2021-10-28] MEDS: FOLIC ACID 1 MG TAB PO SCH (08:46)
[2021-10-28] MEDS: BROMOCRIPTINE MESYLATE 2.5 MG TAB PO SCH ×2 (08:46→16:49)
[2021-10-28] MEDS: ADVANCED PROBIOTIC 1250 MG CAPSULE PO SCH (08:46)
[2021-10-28] MEDS: MULTIVITAMIN TAB PO SCH (08:46)
[2021-10-28] MEDS: ASCORBIC ACID 500 MG TAB PO SCH ×2 (08:46→20:26)
[2021-10-28] MEDS: DIVALPROEX DELAY RELEASE 500 MG TAB PO SCH ×2 (08:47→20:27)
[2021-10-28] MEDS: DOXYCYCLINE HYCLATE 100 MG CAP PO SCH ×2 (08:47→20:27)
[2021-10-28] MEDS: clonazePAM 0.5 MG TAB PO SCH (08:53)
[2021-10-28] MEDS: cefTRIAXone SODIUM 1,000 MG in DEXTROSE 5% 50 ML IV SCH (16:48)
--- NOTE | 2021-10-28 17:28 | Hospitalist Progress Note ---
Date of Service October 28, 2021 Assessment & Plan (1) Acute respiratory failure with hypoxia: Plan: (1) Acute respiratory failure with hypoxia: Plan: Secondary to bilateral pneumonia, atelectasis, mucous plugging 10/23 desaturating this morning repeat CXR: 1. There is increasing consolidation at the right lung base, with volume loss in the right lung and rightward shift of the mediastinum. This likely represents significant atelectasis at the right lung base which may be lobar. This has significantly increased from yesterday. 2. Mild atelectasis is seen at the left lung base. Dapto + Cefepime IV started High flow o2 ordered Pulm consulted, added Performist and Budesonide nebs hypertonic saline nebs percussion vest 10/25 Patient noted to be desaturating again Stat chest x-ray: Complete left lung opacification, possible mucous plug Replaced on high flow O2 Transferred to ICU Discussed with Dr. Ross 10/26 s/p Bronchoscopy removal of mucus plug extubated 10/28 now on 1 to 2 L nasal cannula tolerating PO diet, meds [facility] cultures: Negative so far Continue ceftriaxone plus doxycycline to complete 10-day course Pulmicort plus Perforomist Continue chest percussion Urinary retention 600 cc, Alan catheter ordered Continue Alan catheter for now trial of voiding tomorrow (2) Weakness: (3) Valproic acid toxicity: (4) Seizure disorder: (5) Bipolar disease, chronic: Plan: per admitting service notes with addendum: -Will hold valproic acid for now as appears that some of his symptoms may be related to toxicity with level going from the mid 90s to 121. Possible due to malabsorption with recent weight loss and medication dosing needing to be reduced, no recent medication dosing changes. -Medication changes include clonazepam 0.5 mg every morning to scheduled and temazepam increased to 15 to 30 mg at bedtime. -Neuro consulted for hx of weakness with elevated depakote level, and seizure disorder hx, per HPI, no witnessed seizure in the past 13 years -PT/OT -Behavioral disturbances noted in HPI, he currently has not been walking, calm, lethargic, monitor for need for 1:1 at bedside -Epic reviewed and last tox screen was positive for benzodiazepines appropriately, PDMP reviewed as well. Order urine drug screen for completeness. -TSH 1.315 - Check B12 and folic acid -Noted that during his last visit to PCP in mid September his Seroquel and Remeron were increased 10/26 Neurology consulted: Recommending Depakote 100 mg twice a day (6) Weight loss: Plan: Moderate protein-calorie malnutrition per admitting service notes with addendum: -Concern for weight loss of greater than 20 pounds unintentionally in the past few months - on outpt review mother was concerned about 17 lbs down since July despite 2 boost and 1 benecalorie daily, on average is consuming 2500 to 3000 kenny daily. Allow pureed and pudding thick liquids. Aspiration precautions. -Check CT the chest, abdomen pelvis to eval for underlying malignancy, consider a Ca1 29 level -NSS x 1 bag s/p contrast with CTs - Recent colonoscopy in August 2021 but had poor prep and has been rescheduled, it was done due to high risk colon cancer surveillance, and personal hx of tubular adenoma found on colonoscopy in May 2015 -PSA was 0.44 on 09/24/21 -Dietitian consulted for nutritional status, continue boost supplementation 3 times daily as he uses protein supplements 3 times daily as outpatient -PT/OT consults -Albumin level is adequate at 4.0, consider sarcopenia if albumin level drops does not currently meet those qualifications 10/23 CT chest and abdomen: 1. Limited exam as above. 2. Bibasilar predominant consolidative opacities are suggestive of pneumonia versus aspiration pneumonitis. 3. Bronchial wall thickening suggestive of bronchitis or reactive airway disease with mild bibasilar mucous plugging. 1. No evidence for malignancy within the abdomen or pelvis. Exam compromised given motion artifact and paucity of intra-abdominal fat. 2. 3.2 x 1.4 cm rim-enhancing intramuscular fluid collection within the left gluteus refugio with overlying infiltration and suspected skin thickening with cellulitis. This collection favors an intramuscular abscess. This finding will be called/faxed to ordering provider at time of dictation. 3. Moderate to large amount of stool within the colon and rectum. No bowel obstruction. 4. Bilateral nephrolithiasis. no evidence of malignancy per current imaging Warpman consulted, recommending boost 3 times daily General surgery consulted for possible buttock abscess CT finding felt to be hematoma no drainage recommended monitor History of DVT On Eliquis DVT PPx: - teds, scds, Eliquis twice daily CODE: Full code Dispo: PT OT recommending discharge to rehab or halfway facility due to patient's weakness media relations manager on board Admission and Anticipated Discharge Date Admission Date: October 22, 2021 Subjective Follow-up for acute hypoxic respiratory failure, bilateral pneumonia, mucous plug, etc. Seen resting in bed, awake and alert, nonverbal-at baseline long-term caregiver at the bedside, pleased that patient is doing much better, back to his baseline level No signs of distress, pain Eating very well per staff design engineer No other issues noted Review of Systems Review of Systems: all noted and negative except for above Physical Exam Physical Exam: General- oriented x 0, not in distress, breathing with no effort or accessory muscle use Eyes- anicteric Neck- no JVD Lungs-mild rales at the bases, no wheezing Heart- normal rate, regular rhythm; no murmurs Abdomen- normal bowel sounds, nondistended, soft, nontender Extremities- no pretibial edema, no calf tenderness Neuro- alert, oriented x 0, nonverbal, no other new gross focal deficits Skin- warm & dry Results & Data Results & Data ([facility]) Vital Signs (Past 12 Hours) Vital Signs Temp Pulse Pulse Pulse Resp BP Pulse Ox 10/28/21 16:00 97 H 10/28/21 15:48 37.0 C 90 18 101/58 L 91 10/28/21 08:00 97 H 10/28/21 08:00 10/28/21 07:19 36.5 C 74 20 117/74 100 10/28/21 07:10 95 H 18 93 O2 Del Method O2 Flow Rate 10/28/21 16:00 10/28/21 15:48 Room Air 10/28/21 08:00 10/28/21 08:00 Nasal Cannula 1 10/28/21 07:19 10/28/21 07:10 Nasal Cannula 2 all noted and reviewed including below
[2021-10-28] MEDS: QUEtiapine FUMARATE 25 MG TABLET PO SCH (20:27)
[2021-10-28] MEDS: TEMAZEPAM 15 MG CAPSULE PO SCH (20:28)
[2021-10-29 07:05] LABS: Basophils # (auto) 0.02 K/uL (0-0.2); Basophils % (auto) 0.6 %; Eosinophils % (auto) 2.8 %; Hematocrit (blood only) 35.2 % (40.1-51.0); Hemoglobin 11.4 g/dl (14.0-18.0); Immature Granulocytes # (auto) 0.03 K/uL (0.00-0.02); Immature Granulocytes % (auto) 0.8 %; Lymphocytes % (auto) 36.1 %; Mean Corpuscular Hgb Conc 32.4 g/dL (32.0-36.0); Mean Corpuscular Volume 95.7 fL (80.0-100.0); Mean Platelet Volume 10.6 fL (9.4-12.4); Monocytes # (auto) 0.47 K/uL (0.24-0.82); Monocytes % (auto) 13.1 %; Neutrophils # (auto) 1.68 K/uL (1.4-6.5); Neutrophils % (auto) 46.6 %; Platelet Count 174 K/uL (130-400); RDW Coefficient of Variation 13.9 % (11.5-14.5); RDW Standard Deviation 49.1 fL (36.4-46.3); Red Blood Count 3.68 M/uL (4.63-6.08)
[2021-10-29] MEDS: FORMOTEROL 20 MCG/2 ML VIAL INH SCH ×2 (07:20→20:32)
[2021-10-29] MEDS: SODIUM CHLOR 7% 4 ML NEB NEB SCH ×2 (07:20→20:32)
[2021-10-29] MEDS: BUDESONIDE 0.25 MG/2 ML VIAL (PULMICORT) NEB SCH ×2 (07:21→20:32)
[2021-10-29 07:29] LABS: BUN Creatinine Ratio 46.6 (10-20); Calcium 9.4 mg/dl (8.5-10.1); Creatinine Clr Calc Pharmacy 121.2 ml/min; Est GFR (African American) 131.2 ml/min; Est GFR (Non-African American) 113.2 ml/min; Potassium 3.9 mmol/L (3.5-5.1)
[2021-10-29] MEDS: clonazePAM 0.5 MG TAB PO SCH (08:04)
[2021-10-29] MEDS: DIVALPROEX DELAY RELEASE 500 MG TAB PO SCH ×2 (08:04→21:39)
[2021-10-29] MEDS: APIXABAN 2.5 MG TAB PO SCH ×2 (08:04→21:39)
[2021-10-29] MEDS: BROMOCRIPTINE MESYLATE 2.5 MG TAB PO SCH ×2 (08:04→18:52)
[2021-10-29] MEDS: FOLIC ACID 1 MG TAB PO SCH (08:04)
[2021-10-29] MEDS: CHOLECALCIFEROL 1,000 UNITS 25 MCG TAB PO SCH ×2 (08:04→21:38)
[2021-10-29] MEDS: DOXYCYCLINE HYCLATE 100 MG CAP PO SCH ×2 (08:04→21:39)
[2021-10-29] MEDS: PANTOprazole 40 MG TAB PO SCH (08:05)
[2021-10-29] MEDS: MULTIVITAMIN TAB PO SCH (08:05)
[2021-10-29] MEDS: ADVANCED PROBIOTIC 1250 MG CAPSULE PO SCH (08:05)
[2021-10-29] MEDS: ASCORBIC ACID 500 MG TAB PO SCH ×2 (08:06→21:38)
--- NOTE | 2021-10-29 15:52 | Hospitalist Progress Note ---
Date of Service October 29, 2021 Assessment & Plan (1) Acute respiratory failure with hypoxia: Plan: This is a 56-year-old male with PMHx of seizure disorder on Depakote, intermittent explosive disorder, severe bipolar 1, intellectual disability and developmental disorder, history of DVT on Eliquis, problems with swallowing/mastication, presents [facility] after worsening weakness in the past week. (1) Acute respiratory failure with hypoxia: On 10/23; patient was found to be desaturating. He was started on IV antibiotics, high flow oxygen and pulmonology was consulted. Patient was treated with hypertonic saline and percussion vest. On 10/25; patient desaturated again. He was found to have complete opacification of left lung possibly due to mucous plug. He was intubated and transferred to ICU. On 10/26, patient underwent bronchoscopy with removal of mucous plug and was extubated. on 10/29, Patient oxygen requirement down trended to room air. Plan: Continue ceftriaxone plus doxycycline to complete 10-day course Pulmicort plus Perforomist Continue chest percussion Continue DuoNebs 2) Urinary retention s/p Alan placement -Plan for trial of void today. Remove Alan and bladder scan every 6 hours. Straight cath if post void residual greater than 250 cc. (3) Valproic acid toxicity (4) Hx of Seizure disorder -Serum valproic acid was found to be 120. -Neurology consulted; patient is started on 1000 mg twice daily. (5) Weight loss: Plan: Moderate protein-calorie malnutrition 10/23 CT chest and abdomen: 1. Limited exam as above. 2. Bibasilar predominant consolidative opacities are suggestive of pneumonia versus aspiration pneumonitis. 3. Bronchial wall thickening suggestive of bronchitis or reactive airway disease with mild bibasilar mucous plugging. 1. No evidence for malignancy within the abdomen or pelvis. Exam compromised given motion artifact and paucity of intra-abdominal fat. 2. 3.2 x 1.4 cm rim-enhancing intramuscular fluid collection within the left gluteus refugio with overlying infiltration and suspected skin thickening with cellulitis. This collection favors an intramuscular abscess. This finding will be called/faxed to ordering provider at time of dictation. 3. Moderate to large amount of stool within the colon and rectum. No bowel obstruction. 4. Bilateral nephrolithiasis. no evidence of malignancy per current imaging Marketing Operations Intern consulted, recommending boost 3 times daily General surgery consulted for possible buttock abscess CT finding felt to be hematoma no drainage recommended monitor History of DVT On Eliquis DVT PPx: - teds, scds, Eliquis twice daily CODE: Full code Dispo: PT OT recommending discharge to rehab or jail facility due to patient's weakness integration project manager on board. Mother strongly prefers going to rehab facility. Admission and Anticipated Discharge Date Admission Date: October 22, 2021 Subjective Patient seen and examined at bedside. Is comfortably sitting up on the bed. He is nonverbal but able to track. He still has a Alan in draining clear urine. Review of Systems Review of Systems: All systems reviewed & are unremarkable except as noted in Subjective and Unobtainable due to cognitive status Physical Exam Physical Exam: General- oriented x 0, not in distress, breathing with no effort or accessory muscle use Eyes- anicteric Neck- no JVD Lungs-mild rales at the bases, no wheezing Heart- normal rate, regular rhythm; no murmurs Abdomen- normal bowel sounds, nondistended, soft, nontender Extremities- no pretibial edema, no calf tenderness Neuro- alert, oriented x 0, nonverbal, no other new gross focal deficits Skin- warm & dry Results & Data Results & Data ([facility] [place]) Vital Signs (Past 12 Hours) Vital Signs Temp Pulse Resp BP BP Pulse Ox O2 Del Method 10/29/21 15:18 36.5 C 81 20 156/78 H 95 Room Air 10/29/21 11:41 36.4 C L 76 18 125/75 97 Room Air 10/29/21 08:00 Room Air 10/29/21 07:21 88 18 93 Room Air 10/29/21 06:43 36.7 C 75 18 118/74 97 Room Air 10/29/21 03:43 36.7 C 77 16 118/72 97 Room Air Laboratory Results Laboratory Results WBC 3.60 K/ul (4.8-10.8) L 10/29/21 06:48 RBC 3.68 M/uL (4.63-6.08) L 10/29/21 06:48 Hgb 11.4 g/dl (14.0-18.0) L 10/29/21 06:48 Hct 35.2 % (40.1-51.0) L 10/29/21 06:48 MCV 95.7 fL (80.0-100.0) 10/29/21 06:48 MCH 31.0 pg (25.0-34.0) 10/29/21 06:48 MCHC 32.4 g/dL (32.0-36.0) 10/29/21 06:48 RDW Std Deviation 49.1 fL (36.4-46.3) H 10/29/21 06:48 RDW Coeff of Landon 13.9 % (11.5-14.5) 10/29/21 06:48 Plt Count 174 K/uL (130-400) 10/29/21 06:48 MPV 10.6 fL (9.4-12.4) 10/29/21 06:48 Immature Gran % (Auto) 0.8 % 10/29/21 06:48 Neut % (Auto) 46.6 % 10/29/21 06:48 Lymph % (Auto) 36.1 % 10/29/21 06:48 Gem % (Auto) 13.1 % 10/29/21 06:48 Eos % (Auto) 2.8 % 10/29/21 06:48 Baso % (Auto) 0.6 % 10/29/21 06:48 Neut # (Auto) 1.68 K/uL (1.4-6.5) 10/29/21 06:48 Lymph # (Auto) 1.30 K/uL (1.2-3.4) 10/29/21 06:48 Gem # (Auto) 0.47 K/uL (0.24-0.82) 10/29/21 06:48 Eos # (Auto) 0.10 K/uL (0-0.50) 10/29/21 06:48 Baso # (Auto) 0.02 K/uL (0-0.2) 10/29/21 06:48 Immature Gran # (Auto) 0.03 K/uL (0.00-0.02) H 10/29/21 06:48 PT 11.7 Seconds (9.0-12.0) 10/22/21 11:49 INR 1.1 (0.9-1.1) 10/22/21 11:49 Sodium 139 mmol/L (136-145) 10/29/21 06:48 Potassium 3.9 mmol/L (3.5-5.1) 10/29/21 06:48 Chloride 102 mmol/L (98-107) 10/29/21 06:48 Carbon Dioxide 35 mmol/L (21-32) H 10/29/21 06:48 Anion Gap 2 (3-11) L 10/29/21 06:48 BUN 27 mg/dl (6-23) H 10/29/21 06:48 Creatinine 0.58 mg/dl (0.6-1.4) L 10/29/21 06:48 Est Cr Clr Drug Dosing 121.2 ml/min 10/29/21 06:48 Est GFR ( Amer) 131.2 ml/min 10/29/21 06:48 Est GFR (Non-Af Amer) 113.2 ml/min 10/29/21 06:48 BUN/Creatinine Ratio 46.6 (10-20) H 10/29/21 06:48 Glucose 87 mg/dl (70-99(Fasting)) 10/29/21 06:48 Estimat Average Glucose 94 mg/dl 10/23/21 07:44 Hemoglobin A1c 4.9 % (4.5-5.6) 10/23/21 07:44 Lactate 1.2 mmol/L (0.4-2.0) 10/22/21 11:49 Calcium 9.4 mg/dl (8.5-10.1) 10/29/21 06:48 Magnesium 1.8 mg/dl (1.7-2.4) 10/25/21 05:30 Total Bilirubin 0.5 mg/dl (0.2-1.0) 10/23/21 07:44 AST 20 U/L (13-39) 10/23/21 07:44 ALT 11 U/L (7-52) 10/23/21 07:44 Alkaline Phosphatase 58 U/L (34-104) 10/23/21 07:44 Total Creatine Kinase 162 U/L (30-223) 10/22/21 11:49 Troponin I High Sens 4.0 pg/ml (0-20) 10/22/21 11:49 Total Protein 7.0 gm/dl (6.0-8.3) 10/23/21 07:44 Albumin 3.4 gm/dl (3.4-5.0) 10/23/21 07:44 Globulin 3.6 gm/dl (2.5-4.0) 10/23/21 07:44 Albumin/Globulin Ratio 0.9 (0.9-2) 10/23/21 07:44 Triglycerides 50 mg/dl (0-150) 10/23/21 07:44 Cholesterol 136 mg/dl (0-200) 10/23/21 07:44 LDL Cholesterol, Calc 72 mg/dl 10/23/21 07:44 VLDL Cholesterol, Calc 10 mg/dl (0-30) 10/23/21 07:44 HDL Cholesterol 54 mg/dl 10/23/21 07:44 Cholesterol/HDL Ratio 2.5 (0-5) 10/23/21 07:44 Vitamin B12 891 pg/ml (180-914) 10/22/21 11:49 Folate > 22.30 ng/ml (>5.38) 10/22/21 11:49 Procalcitonin 0.19 ng/ml (0-0.5) 10/25/21 09:50 TSH 1.315 uIu/ml (0.300-4.500) 10/22/21 11:49 Urine Color Yellow 10/23/21 04:25 Urine Appearance Clear (Clear) 10/23/21 04:25 Urine pH 8.0 (4.5-7.5) H 10/23/21 04:25 Ur Specific [place] 1.045 (1.000-1.030) H 10/23/21 04:25 Urine Protein Negative (Negative) 10/23/21 04:25 Urine Glucose (UA) Negative (Negative) 10/23/21 04:25 Urine Ketones Negative (Negative) 10/23/21 04:25 Urine Blood Negative (Negative) 10/23/21 04:25 Urine Nitrite Negative (Negative) 10/23/21 04:25 Urine Bilirubin Negative (Negative) 10/23/21 04:25 Urine Urobilinogen Negative (Negative) 10/23/21 04:25 Ur Leukocyte Esterase Negative (Negative) 10/23/21 04:25 Nasal Screen MRSA (PCR) Negative (Negative) 10/23/21 15:00 Urine Opiates Screen Neg (Neg) 10/23/21 04:25 Ur Methadone, Qual Neg (Neg) 10/23/21 04:25 Urine Barbiturates Neg (Neg) 10/23/21 04:25 Valproic Acid 22 mcg/ml (50-100) L 10/24/21 08:02 Ur Phencyclidine (PCP) Neg (Neg) 10/23/21 04:25 U Amphetamin/Meth Scrn Neg (Neg) 10/23/21 04:25 MDMA (Ecstasy) Screen Neg (Neg) 10/23/21 04:25 U OH-Alprazolam Confrm NEGATIVE ng/mL (<25) 10/23/21 04:25 U Benzodiazepines Scrn Pos (Neg) H 10/23/21 04:25 7-Amino Clonazepam 115 ng/mL (<25) H 10/23/21 04:25 Ur Nordiazepam Confirm NEGATIVE ng/mL (<50) 10/23/21 04:25 U OH-ethylflurazepam NEGATIVE ng/mL (<50) 10/23/21 04:25 U Lorazepam Cnf GC/MS NEGATIVE ng/mL (<50) 10/23/21 04:25 U Oxazepam Confm GC/MS >2000 ng/mL (<50) H 10/23/21 04:25 Ur Temazepam Confirm >2000 ng/mL (<50) H 10/23/21 04:25 U OH-Triazolam Confirm NEGATIVE ng/mL (<50) 10/23/21 04:25 U OH-Midazolam Confirm NEGATIVE ng/mL (<50) 10/23/21 04:25 Ur Cocaine Metabolite Neg (Neg) 10/23/21 04:25 U Marijuana (THC) Screen Neg (Neg) 10/23/21 04:25 Drug Screen Comment SEE NOTE 10/23/21 04:25 Adenovirus (PCR) Not Detected (NotDetected) 10/25/21 15:35 B. pertussis DNA (PCR) Not Detected (NotDetected) 10/25/21 15:35 B.parapertussis DNA PCR Not Detected (NotDetected) 10/25/21 15:35 C. pneumoniae DNA (PCR) Not Detected (NotDetected) 10/25/21 15:35 Coronavirus OC43 (PCR) Not Detected (NotDetected) 10/25/21 15:35 Coronavirus HKU1 (PCR) Not Detected (NotDetected) 10/25/21 15:35 Coronavirus 229E (PCR) Not Detected (NotDetected) 10/25/21 15:35 SARS-CoV-2 (PCR) Not Detected (NotDetected) 10/25/21 15:35 Coronavirus NL63 (PCR) Not Detected (NotDetected) 10/25/21 15:35 Human Metapneumovir PCR Not Detected (NotDetected) 10/25/21 15:35 Influenza Type A (PCR) Not Detected (NotDetected) 10/25/21 15:35 Influenza Type B (PCR) Not Detected (NotDetected) 10/25/21 15:35 M. pneumoniae (PCR) Not Detected (NotDetected) 10/25/21 15:35 Parainfluenza 1 (PCR) Not Detected (NotDetected) 10/25/21 15:35 Parainfluenza 2 (PCR) Not Detected (NotDetected) 10/25/21 15:35 Parainfluenza 3 (PCR) Not Detected (NotDetected) 10/25/21 15:35 Parainfluenza 4 (PCR) Not Detected (NotDetected) 10/25/21 15:35 RSV (PCR) Not Detected (NotDetected) 10/25/21 15:35 Entero/Rhino (PCR) Not Detected (NotDetected) 10/25/21 15:35 SARS-CoV-2, RNA, NAAT NEGATIVE (NEGATIVE) 10/22/21 12:[address] 10/22/21 11:18 CT head/brain wo con CLINICAL HISTORY: 56 years-old Male with weakness. Acute weakness TECHNIQUE: Multiple axial CT images of the head were obtained without contrast. A dose lowering technique was utilized adhering to the principles of ALARA. COMPARISON: None. FINDINGS: No acute intracranial hemorrhage, midline shift, intracranial mass, hydrocephalus, territorial ischemia or abnormal extra-axial collection.5 study is mildly motion degraded. Mild involutional changes. The calvarium is intact. Trace mastoid effusions. Paranasal sinuses are clear. Unremarkable soft tissues and orbits. IMPRESSION: No acute intracranial abnormality. ACT 112: Negative or not required by law. The above report was generated using voice recognition software. It may contain grammatical, syntax or spelling errors. Electronically signed by: Ezekiel aRmirez M.D. 10/22/2021 1:45 PM Abdomen/Pelvis CT 10/22/21 14:32 CT OF THE ABDOMEN AND PELVIS WITH CONTRAST CLINICAL HISTORY: Weight loss, evaluate for malignancy. COMPARISON STUDY: None. TECHNIQUE: Following IV administration of 92 mL of Optiray, axial images of the abdomen and pelvis were obtained from the lung bases to the proximal femurs. Images were reviewed in the axial, sagittal, and coronal planes. IV contrast was administered without complication. Automated exposure control was utilized for the study. A dose lowering technique was utilized adhering to the principles of ALARA. CT DOSE: 752.09 mGy.cm FINDINGS: Please note that the chest CT will be reported separately. Lower lung opacities, greatest within the left lower lobe are better depicted on that exam. This study is compromised by motion artifact and paucity of intra-abdominal fat. No pneumatosis, free air or portal venous gas. No hepatic lesions are i dentified. There is no biliary or pancreatic ductal dilatation. Spleen, adrenal glands and pancreas are unremarkable. Multiple small bilateral renal calculi measure up to 3 mm. There are no ureteral calculi. There is no hydronephrosis. No evidence for a bowel obstruction. There is a moderate to large amount stool within the colon and rectum. There is no lymphadenopathy. There is no ascites. Major vasculature is patent. No suspicious lesions are identified within the visualized skeletal structures. Note is made of a rim-enhancing 3.2 x 1.4 cm intramuscular fluid collection within the left gluteus refugio overlying the left ischial tuberosity on axial image 468 of 511. There is overlying infiltration and mild skin thickening. There is fluid within a distended right trochanteric bursa. IMPRESSION: 1. No evidence for malignancy within the abdomen or pelvis. Exam compromised given motion artifact and paucity of intra-abdominal fat. 2. 3.2 x 1.4 cm rim-enhancing intramuscular fluid collection within the left gluteus refugio with overlying infiltration and suspected skin thickening with cellulitis. This collection favors an intramuscular abscess. This finding will be called/faxed to ordering provider at time of dictation. 3. Moderate to large amount of stool within the colon and rectum. No bowel obstruction. 4. Bilateral nephrolithiasis. ACT 112: Negative or not required by law. Electronically signed by: Milan Torrez M.D. 10/23/2021 7:[address] 10/22/21 14:[address] WITH CONTRAST HISTORY: Acute weight loss with shortness of breath weight loss, eval for malignancy, r/o pna TECHNIQUE: Multiaxial CT images of the chest were performed following the IV administration of 92 cc of Optiray. A dose lowering technique was utilized adhering to the principles of ALARA. COMPARISON: CT abdomen and pelvis of same day FINDINGS: Limited exam secondary to positioning and respiratory motion artifact. Unremarkable thyroid. The heart is normal in size. No pericardial effusion or thoracic lymphadenopathy. There is no thoracic aortic aneurysm or dissection identified. Unremarkable pulmonary artery. Bilateral bronchial wall thickening with bibasilar mucous plugging. No pneumothorax or overt pulmonary edema. Bibasilar patchy consolidative opacities are most pronounced within the dependent lower lobes. Subtle patchy groundglass opacities within the right upper lobe. Moderate fecal retention. Unremarkable soft tissues. Degenerative changes of the shoulders and spine. Possible avascular necrosis of the right humeral head. Healed chronic fracture deformity of the proximal right humerus. IMPRESSION: 1. Limited exam as above. 2. Bibasilar predominant consolidative opacities are suggestive of pneumonia versus aspiration pneumonitis. 3. Bronchial wall thickening suggestive of bronchitis or reactive airway disease with mild bibasilar mucous plugging. ACT 112: Negative or not required by law. Electronically signed by: Ezekiel Ramirez M.D. 10/23/2021 7:22 AM Chest X-Ray 10/25/21 13:37 XR chest 1V portable CLINICAL HISTORY: s/p bronch COMPARISON STUDY: Chest radiograph performed earlier today. FINDINGS: Tip of endotracheal tube 1.2 cm above the meghana. Left lung aeration has significantly improved. Persistent left lung airspace opacities with volume loss are noted. No abnormalities within the right lung are identified. Cardiac size is normal. No pneumothorax or pleural effusion is identified. IMPRESSION: 1. Tip of endotracheal tube 1.2 cm above the meghana. 2. Interval improvement in left lung aeration. No pneumothorax. ACT 112: Negative or not required by law. Electronically signed by: Milan Torrez M.D. 10/25/2021 2:01 PM
[2021-10-29] MEDS: cefTRIAXone SODIUM 1,000 MG in DEXTROSE 5% 50 ML IV SCH (18:51)
[2021-10-29] MEDS: ALBUTEROL 0.5% NEB SOLN 2.5 MG/0.5 ML VIAL NEB SCH (20:32)
[2021-10-29] MEDS: QUEtiapine FUMARATE 25 MG TABLET PO SCH (21:40)
[2021-10-29] MEDS: TEMAZEPAM 15 MG CAPSULE PO SCH (21:40)
[2021-10-30] MEDS: ALBUTEROL 0.5% NEB SOLN 2.5 MG/0.5 ML VIAL NEB SCH ×3 (01:23→13:26)
[2021-10-30] MEDS: FORMOTEROL 20 MCG/2 ML VIAL INH SCH (07:07)
[2021-10-30] MEDS: BUDESONIDE 0.25 MG/2 ML VIAL (PULMICORT) NEB SCH (07:07)
[2021-10-30] MEDS: SODIUM CHLOR 7% 4 ML NEB NEB SCH (07:07)
[2021-10-30 07:49] LABS: Basophils # (auto) 0.02 K/uL (0-0.2); Basophils % (auto) 0.6 %; Eosinophils # (auto) 0.09 K/uL (0-0.50); Eosinophils % (auto) 2.6 %; Hematocrit (blood only) 35.8 % (40.1-51.0); Hemoglobin 11.5 g/dl (14.0-18.0); Immature Granulocytes # (auto) 0.04 K/uL (0.00-0.02); Immature Granulocytes % (auto) 1.2 %; Lymphocytes # (auto) 1.39 K/uL (1.2-3.4); Lymphocytes % (auto) 40.5 %; Mean Corpuscular Hemoglobin 30.6 pg (25.0-34.0); Mean Corpuscular Hgb Conc 32.1 g/dL (32.0-36.0); Mean Corpuscular Volume 95.2 fL (80.0-100.0); Mean Platelet Volume 10.9 fL (9.4-12.4); Monocytes % (auto) 11.7 %; Neutrophils # (auto) 1.49 K/uL (1.4-6.5); Neutrophils % (auto) 43.4 %; Platelet Count 223 K/uL (130-400); RDW Coefficient of Variation 14.2 % (11.5-14.5); RDW Standard Deviation 49.2 fL (36.4-46.3); Red Blood Count 3.76 M/uL (4.63-6.08); White Blood Count 3.43 K/ul (4.8-10.8)
[2021-10-30] MEDS: DOXYCYCLINE HYCLATE 100 MG CAP PO SCH (08:08)
[2021-10-30] MEDS: DIVALPROEX DELAY RELEASE 500 MG TAB PO SCH (08:09)
[2021-10-30] MEDS: BROMOCRIPTINE MESYLATE 2.5 MG TAB PO SCH (08:10)
[2021-10-30] MEDS: FOLIC ACID 1 MG TAB PO SCH (08:10)
[2021-10-30] MEDS: ADVANCED PROBIOTIC 1250 MG CAPSULE PO SCH (08:11)
[2021-10-30] MEDS: MULTIVITAMIN TAB PO SCH (08:12)
[2021-10-30] MEDS: PANTOprazole 40 MG TAB PO SCH (08:13)
[2021-10-30] MEDS: APIXABAN 2.5 MG TAB PO SCH (08:13)
[2021-10-30] MEDS: CHOLECALCIFEROL 1,000 UNITS 25 MCG TAB PO SCH (08:14)
[2021-10-30] MEDS: ASCORBIC ACID 500 MG TAB PO SCH (08:15)
[2021-10-30] MEDS: clonazePAM 0.5 MG TAB PO SCH (08:18)
[2021-10-30 08:20] LABS: Calcium 9.6 mg/dl (8.5-10.1); Creatinine Clr Calc Pharmacy 125.4 ml/min; Est GFR (African American) 131.2 ml/min; Est GFR (Non-African American) 113.2 ml/min; Potassium 4.4 mmol/L (3.5-5.1)
--- NOTE | 2021-10-30 15:02 | Discharge Summary ---
Date of Service October 30, 2021 Admission HPI Per Admitting Provider This is a 56-year-old male with PMHx of seizure disorder on Depakote, intermittent explosive disorder, severe bipolar 1, intellectual disability and developmental disorder, history of DVT on Eliquis, problems with s wallowing/mastication, presents to the ER from [facility] after worsening weakness in the past week. Reportedly the patient had COVID on September 11 without symptoms, but was tested in the [facility] for another visit purpose, and found incidentally. History is obtained by nursing caregiver who are present at bedside as the patient is essentially nonverbal, repeating the same word "no" throughout the exam. He does not follow commands at baseline. In the past week he not been quite himself. He has not been wanting to walk within the pas 4 days. He also has been eating less and is not allowing the aids to help feed him, and is puckering his lips when food is presented. He tolerates oral intake with pureed foods and pudding thick liquids, but he does not feed himself, instead an aid at the residential helps him with all meals. The report the patient normally eats well, and on a daily basis consumes carnation instant breakfast at least twice per day. They report significant weight loss, over 20 lbs within the past few months despite 3 protein supplements daily and eating things such as a pureed Big Mac where he will consume all of it at one meal without hesitancy. Pt was agreeable to taking all his medications this morning. There have been minimal changes to his outpatient medications including scheduling clonazepam 0.5 mg in the morning from a PRN med, and increased temazepam dose from 15 to 30 mg at bedtime. He has been on valproic acid 1000 mg twice daily and an additional 250 mg at 1600 for a long time. Patient has lived at residential with [employer] for 13 years and the caregivers have never witnessed seizure-like activity. They do report significant behavioral disturbances including aggressiveness, pacing and walking, extreme irritability however he has not exhibited any of these behaviors in the past week and has been significantly more lethargic. His mother has expressed concerns to the staff about him progressively becoming worse and therefore they brought him to the ER today. Valproic acid level is elevated today at 121, compared to epic results, his other levels have been in the mid 90s. With the most recent being on 09/11/2021 = 96. Platelet count is decreased at 127, but this has improved from outpatient labs where plt = 87 on 09/11/21. In regards to family history, caregiver nor aid are able to tell me what kind of cancer the patient's parents had. Admission Exam Per Admitting Provider General- oriented x 0, not in distress, breathing with no effort or accessory muscle use Eyes- anicteric Neck- no JVD Lungs-mild rales at the bases, no wheezing Heart- normal rate, regular rhythm; no murmurs Abdomen- normal bowel sounds, nondistended, soft, nontender Extremities- no pretibial edema, no calf tenderness Neuro- alert, oriented x 0, nonverbal, no other new gross focal deficits Skin- warm & dry Principal Diagnosis 1) Acute respiratory failure with hypoxia 2) Urinary retention 3) Valproic acid toxicity 4) hx of Seizure disorder 5) Moderate protein-calorie malnutrition Discharge Exam General- oriented x 0, not in distress, breathing with no effort or accessory muscle use Eyes- anicteric Neck- no JVD Lungs-mild rales at the bases, no wheezing Heart- normal rate, regular rhythm; no murmurs Abdomen- normal bowel sounds, nondistended, soft, nontender Extremities- no pretibial edema, no calf tenderness Neuro- alert, oriented x 0, nonverbal, no other new gross focal deficits Skin- warm & dry Discharge Data Allergies Allergy/AdvReac Type Severity Reaction Status Date / Time amoxicillin Allergy Mild unknown Verified 12/26/18 10:05 haloperidol Allergy Mild unknown Verified 12/26/18 10:05 lithium Allergy Unknown Unverified 12/26/18 10:05 Penicillins Allergy Unknown Verified 10/22/21 23:04 valproic acid Allergy Unknown Verified 10/22/21 23:04 Consultations 10/22/21 13:53 ED Decision to Admit Stat 10/22/21 14:59 Consult Neurology Routine 10/23/21 09:42 Consult General Surgery Routine 10/23/21 10:42 Consult Pulmonology Routine 10/25/21 11:31 Consult [employer] Estate [employer] Routine Ordered Studies 10/22/21 11:18 CT head/brain wo con Stat 10/22/21 14:32 CT Abd and Pelvis [CT abd pelvis IV con only] Urgent CT chest with contrast [CT chest diagnostic w con] Urgent Hospital Course (1) Acute respiratory failure with hypoxia: This is a 56-year-old male with PMHx of seizure disorder on Depakote, intermittent explosive disorder, severe bipolar 1, intellectual disability and developmental disorder, history of DVT on Eliquis, problems with swallowing/mastication, [facility] the [facility] from [facility] after worsening weakness for a week. A day after the admission(on 10/23), patient was found to be desaturating. He was started on IV antibiotics, high flow oxygen and pulmonology was consulted. Patient was treated with hypertonic saline and percussion vest. On 10/25; patient desaturated again. He was found to have complete opacification of left lung possibly due to mucous plug. He was intubated and transferred to ICU. On 10/26, patient underwent bronchoscopy with removal of mucous plug and was extubated. on 10/29, Patient oxygen requirement down trended to room air. Patient was treated with DuoNebs, hypertonic saline nebulization and course of ceftriaxone and doxycycline. During the hospital ization, he was also found to have acute urinary retention for which Alan was placed. Trial of void was done on 10/29 and patient was able to void by himself. Patient was found to have valproic acid level of 122 which was supratherapeutic. Neurology was consulted and patient's valproic acid was decreased to 1000 mg twice daily. Patient was discharged to [facility] with instruction to follow modified diet and continued pulmonary toileting. His mom was updated regarding the plan and she verbalized understanding. (2) Urinary retention: (3) Valproic acid toxicity: Total Time Total Time Spent Total Time Spent (In Minutes): 35 Total Time Includes: Examination of the Patient, Discharge Planning, Medication Reconciliation, Communication With Other Providers and Other Discharge Plan Discharge Items Patient Disposition: Transfer Inpatient Rehab Fac Reason For Visit: WEAKNESS Discharge Diagnosis: (1) Acute respiratory failure with hypoxia 2) Urinary Retention 3) Valproic acid toxicity 4) Hx of Seizure disorder Activity: Resume your previous activity Non-emergency contact: Primary Care Provider Call non-emergency contact if: you have any medication questions and your symptoms worsen Follow-up/Referrals: Barbara Fuentes PA-C [Primary Care Provider] - Diet: Regular Diet Texture: Pureed (blended smooth) Liquid Consistency: Pudding thick Addtl Attending Provider Instructions: Please make sure the patient is on pured diet with pudding thick liquid consistency. Monitor for any signs of aspiration. Maintain aspiration precautions. Please continue chest percussion at the facility. His dose of Depakote is adjusted to 1000 milligrams twice daily. Please continue all other medication as prescribed. Follow-up with primary care doctor in 1 week. Pending Studies at Discharge: No Stand-Alone Forms: [facility] Skilled Items Patient informed of condition?: Yes DNR: No Discharge Level of Care: Acute rehab Communicable Disease: No Discharge Prognosis: Stable Lines: None Urinary Catheter: No Medications and DC Order Prescriptions: New albuterol sulfate 2.5 mg/0.5 mL Solution For Nebulization 2.5 mg NEB BID Qty: 30 0RF formoterol fumarate [Perforomist] 20 mcg/2 mL Solution For Nebulization 20 mcg inhalation BIDR Qty: 60 0RF sodium chloride 7 % Solution For Nebulization 4 ml NEB BIDR Qty: 120 0RF Continued multivitamin Tablet 1 tab PO DAILY@08 ascorbic acid (vitamin C) [Vitamin C] 500 mg Tablet 500 mg PO BID@08,20 divalproex [Depakote ER] 500 mg Tablet Extended Release 24 Hr 1,000 mg PO BID@08,20 folic acid 1 mg Tablet 1 mg PO DAILY@08 bromocriptine [Parlodel] 2.5 mg Tablet 2.5 mg PO DAILY@08,17 cholecalciferol (vitamin D3) [Vitamin D3] 1,000 unit Tablet,Chewable 1,000 unit PO BID@08,20 quetiapine [Seroquel] 300 mg tablet 150 mg PO HS clonazepam 0.5 mg tablet 0.5 mg PO QAM omeprazole 10 mg capsule,delayed release(DR/EC) 10 mg PO DAILY temazepam [Restoril] 30 mg capsule 30 mg PO HS Eliquis 2.5 mg tablet 2.5 mg PO BID Discontinued divalproex 250 mg Tablet,Delayed Release (Dr/Ec) 250 mg PO DAILY@1600 Discharge Orders: Discharge Order (Routine); Ordered 10/30/21 Ordered By: Todd Loo Admission Data Admit Date/Time: 10/22/21 14:25 Attending Provider: Todd Loo Admit Provider: Anny Gusman Primary Care Provider: Barbara Fuentes Other Providers: Anny Gusman ; Deniz Talbert ; Pritesh Espinoza ; Say Cardona ; Gagan Ambrose ; Pritesh Ross ; [facility]
== END 2021-10-30 15:20 | DRG 163 ==
LOC: ED 10:15 → EDINP 14:25 → SUATTDRO 14:25 → EDINP 17:05 → 3W 10-23 00:49 → 2S 10-23 10:11 → 1E 10-25 11:52 → 2S 10-26 14:54